=== PATIENT | male | born 1960 ===

== ENCOUNTER 2024-11-24 08:27 | Outpatient (REF) | payer OTHER, SELFPAY ==
--- NOTE | ~2024-11-24 | XR_ITS ---
EXAMINATION: XR SHOULDER 2 OR MORE VIEWS LEFT HISTORY: M25.519 - Pain in unspecified shoulder COMPARISON: There are no prior studies available for comparison. FINDINGS: Three views of the left shoulder are submitted. Osseous mineralization is normal. There is no fracture or dislocation. The glenohumeral and acromioclavicular joint spaces are preserved. The soft tissues are unremarkable. XR/XR shoulder LT min 2V IMPRESSION: Unremarkable examination of the left shoulder. Electronically signed by: Hany Torres MD 11/25/2024 08:25 AM EDT
--- OUTSIDE RECORDS SUMMARY | 2024-11-25 08:53 | XMS_ITS | Clinical Summary ---
Author Organization [facility] [address] [facility] Building Address [address] [place] [address] Phone Care Team Providers Care Vice President Of Talent Management Name Role Phone Naseem Huddleston Primary Care Provider [phone] Allergies Active Allergy Reactions Criticality Noted Date [...] plaque,Chronic obstructive pulmonary disease with acute exacerbation ([facility]/HCC),Depress ion, unspecified depression type,Hyperlipidem ia, unspecified hyperlipidemia type,Tobacco use disorder,Primary hypertension,PVD (peripheral vascular disease) ([facility]),Periphe ral arterial occlusive disease ([facility]),Need for vaccination against Streptococcus pneumoniae [...] Care Team Description 10/21/2024 Telephone Adult Medicine [address] [phone] Naseem Huddleston PA Rectal Bleeding; Anal Itching 10/19/2024 Telephone Adult Medicine [address] [phone] Karley Caro [place] Prior Authorization (Methocarbamol 750mg) 10/11/2024 [facility] [address] [phone] Naseem Huddleston PA 10/10/2024 [facility] [address] [phone] Naseem Huddleston PA Prior Authorization (Lubiprostone) 10/07/2024 3:51 PM EST - 10/07/2024 11:59 PM EST Hospital Encounter Radiology Department - [address] [phone] Dyspnea on exertion; Lumbar radiculitis; Anxiety; Coronary artery disease due to lipid rich plaque; Chronic obstructive pulmonary disease with acute exacerbation (CMS/HCC); Depression, unspecified depression type; Hyperlipidemia, unspecified hyperlipidemia type; Tobacco use disorder; Primary hypertension; PVD (peripheral vascular disease) (CMS/HCC); Peripheral arterial occlusive disease (CMS/HCC); Need for vaccination against Streptococcus pneumoniae Discharge Disposition: Home or Self Care 10/07/2024 Telephone Adult [address] [phone] Naseem Huddleston PA Medication Problem 10/04/2024 Nurse Triage [address] [phone] Naseem Huddleston PA Diarrhea 09/23/2024 8:00 AM EST Office Visit [address] [phone] Naseem Huddleston PA Primary hypertension (Primary Dx); Dyspnea on exertion; Lumbar radiculitis; Anxiety; Coronary artery disease due to lipid rich plaque; Chronic obstructive pulmonary disease with acute exacerbation (CMS/HCC); Depression, unspecified depression type; Hyperlipidemia, unspecified hyperlipidemia type; Tobacco use disorder; PVD (peripheral vascular disease) (CMS/HCC); Peripheral arterial occlusive disease (CMS/HCC); Need for vaccination against Streptococcus pneumoniae 08/31/[address] [phone] Darvin Barone, PT 08/30/2024 12:00 PM EST Evaluation Outpatient [address] [phone] Darvin Barone, PT Shoulder impingement (Primary Dx) from Last 3 Months Immunizations Name Administration Dates Next Due Influenza trivalent, with pr eservative (Fluzone; Afluria) 6mo and older 09/05/2012 [employer] SARS-CoV-2 COVID -19, vector-nr, [id number], preservative free [...] Surgery Date Site/Laterality Comments COLONOSCOPY 02/02/2012 PROCEDURE: [place] COLONOSCOPY FLX DX W/COLLJ SPEC WHEN PFRMD; COMMENT: normal OTHER SURGICAL HISTORY 05/2015 PROCEDURE: ENDOVAS NON-CARDIAC ABL CATH; COMMENT: right leg, left arm PVD OTHER SURGICAL HISTORY PROCEDURE: [place] BYPASS W/VEIN [id number]; COMMENT: dr. walsh COLONOSCOPY 05/22/2022 PROCEDURE: HISTORICAL COLONOSCOPY; COMMENT: tubular adenomas ESOPHAGOGASTRODUODENOSCOPY 05/22/2022 PROCEDURE: [place] EGD TRANSORAL BIOPSY SINGLE/MULTIPLE; COMMENT: GERD LEG SURGERY Right PROCEDURE: HISTORICAL LEG SURGERY; COMMENT: right tib/fib fx orif Medical History Medical History Date Comments PVD (peripheral vascular dis ease) ([facility]/HCC) 12/23/2011 DX:PVD (peripheral vascular disease) ([facility]); COMMENT: History of ischemic left [...] 8:00 AM EDT Office Visit Adult Medicine [facility] [address] [place] [address] Naseem Huddleston PA [address] [place] [address] Health Maintenance Due Date Last Done Comments [...] Signed Date: 10/07/2024 18:03 ET Workstation ID: [id number] Transcribed By: Self Edit Transcribed Date: 10/07/2024 [...] Signed Date: 10/07/2024 18:03 ET Workstation ID: [id number] Transcribed By: Self Edit Transcribed Date: 10/07/2024 17:51 ET Naseem JEAN BAPTISTE [facility] MRI PROCEDURES Final Result * Lipid panel with reflex to direct LDL (07/25/2024 1:43 PM EST) Cholesterol 96 0 - 200 mg/dL LAB CHEMISTRY METHOD 07/25/2024 4:54 PM EST [facility] Triglycerides 108 0 - 150 mg/dL LAB CHEMISTRY METHOD 07/25/2024 4:54 PM [facility] HDL 48 >=40 mg/dL LAB CHEMISTRY METHOD 07/25/2024 4:54 PM [facility] LDL Calculated 26 0 - 100 mg/dL LAB CHEMISTRY METHOD 07/25/2024 4:54 PM [facility] VLDL Cholesterol Shaun 21.6 mg/dL LAB CHEMISTRY METHOD 07/25/2024 4:54 PM [facility] Non HDL Chol. (LDL+VLDL) 48 <145 mg/dL LAB CHEMISTRY METHOD 07/25/2024 4:54 PM [facility] Chol/HDL Ratio 2.0 0.0 - 4.4 LAB CHEMISTRY METHOD 07/25/2024 4:54 PM [facility] Blood Venous blood specimen / Unknown Venipuncture / Unknown 07/25/2024 1:43 PM EST 07/25/2024 1:43 PM EST us Naseem JEAN BPATISTE LAB BLOOD ORDERABLES Linda l Result [facility] [address] [place] [address], * (ABNORMAL) Comprehensive metabolic panel (07/25/2024 1:43 PM EST) Pathologist [facility] Sodium 138 133 - 145 mmol/L LAB CHEMISTRY METHOD 07/25/2024 4:54 PM [facility] Potassium 3.5 3.5 - 5.5 mmol/L LAB CHEMISTRY METHOD 07/25/2024 4:54 PM [facility] Chloride 102 96 - 110 mmol/L LAB CHEMISTRY METHOD 07/25/2024 4:54 PM [facility] CO2 29 21 - 32 mmol/L LAB CHEMISTRY METHOD 07/25/2024 4:54 PM [facility] Anion Gap 7 3 - 11 LAB CHEMISTRY METHOD 07/25/2024 4:54 PM [facility] Glucose 111(H) 70 - 100 mg/dL LAB CHEMISTRY METHOD 07/25/2024 4:54 PM [facility] BUN 10 5 - 25 mg/dL LAB CHEMISTRY METHOD 07/25/2024 4:54 PM [facility] Creatinine 1.09 0.70 - 1.30 mg/dL LAB CHEMISTRY METHOD 07/25/2024 4:54 PM [facility] eGFR 76 >=60 mL/min/1. 73m2 LAB CHEMISTRY METHOD 07/25/2024 4:54 PM [facility] Comment:Calculation based on the??Chronic Kidney Disease Epidemiology Collaboration (CKD-EPI) equation refit??without adjustment for race. BUN/Creatinine Ratio 9.2 LAB CHEMISTRY METHOD 07/25/2024 4:54 PM [facility] Calcium 9.6 8.5 - 10.5 mg/dL LAB CHEMISTRY METHOD 07/25/2024 4:54 PM [facility] AST (SGOT) 17 10 - 42 unit/L LAB CHEMISTRY METHOD 07/25/2024 4:54 PM [facility] ALT (SGPT) 34 10 - 60 unit/L LAB CHEMISTRY METHOD 07/25/2024 4:54 PM [facility] Alkaline Phosphatase 98 42 - 121 unit/L LAB CHEMISTRY METHOD 07/25/2024 4:54 PM [facility] Total Protein 7.0 6.0 - 8.0 g/dL LAB CHEMISTRY METHOD 07/25/2024 4:54 PM [facility] Albumin 3.9 3.2 - 5.0 g/dL LAB CHEMISTRY METHOD 07/25/2024 4:54 PM EST [facility] Total Bilirubin 1.3 0.0 - 1.4 mg/dL LAB CHEMISTRY METHOD 07/25/2024 4:54 PM EST [facility] Blood Venous blood specimen / Unknown Venipuncture / Unknown 07/25/2024 1:43 PM EST 07/25/2024 1:43 PM EST us Naseem JEAN BAPTISTE LAB BLOOD ORDERABLES Linda l Result [facility] [address] [place] [address], * Depression Screening (05/24/2024) Depression Screening abstracted Historical Provider HEALTH MAINTENANCE Final Result * CT LUNG SCREENING LOW DOSE (05/02/2024 10:26 AM EDT) Anatomical Region Laterality Modality Computed Tomogra phy 05/02/2024 7:28 AM EDT Narrative 05/02/2024 10:26 AM EDT [facility] Diagnostic Imaging Department [address] [place] [id number] Patient: ??NASH AQUINO ?/Age/Sex: 1960 - 64 - M Unit#: ??[id number] ? Location/Status: ??SPDICATLS/REG CLI ? Mnemonic/Ordering Site: [...] Procedure Note Michelle Pete MD - 06/08/2024 [facility] Diagnostic Imaging Department [address] [place], [place] [id number] Patient: NASH AQUINO /Age/Sex: 1960 - 64 - M Unit#: [id number] Location/Status: SPDICATLS/REG CLI Mnemonic/Ordering Site: [facility] Ordering Physician: GIGI LAWSON MD CT Lung [...] Most Recently Relevant to Health Maintenance Insurance [facility] [email or web address] PLAN Care Teams Vice President Of Talent Management Relationship Specialty Start Date End Date Naseem Huddleston PA [address] [place] [address] PCP - General Internal Medicine 11/26/20
--- OUTSIDE RECORDS SUMMARY | 2024-11-25 08:53 | XMS_ITS | Encounter Summary ---
Author Organization Address [address] [place] [address] Care Team Providers Care Counterintelligence/Humint Specialist Name Role Phone Naseem Huddleston Primary Care Provider [phone] Reason for Visit * Reason Onset Date Comments Shoulder Pain 07/25/2024 Left Shoulder Encounter Details Date Type Department Care Team (Late st Contact Info) Description 07/25/2024 Nurse Triage Adult Medicine [address] [phone] Naseem Huddleston PA [address] [place] [phone] Shoulder Pain (Left Shoulder ) Social History [...] traveled recently to another state outside of [place], [place], [place], [place], [place], [place], [place]? no [...] yes, gather 3rd libertarian insurance information Third Republican Information: not applicable PCP: MARKEL Fonseca Payor: / No coverage found. documented in this encounter Plan of Treatment Upcoming Encounters Date Type Department Care Team (Late st Contact Info) Description 03/27/2025 8:00 AM EDT Office Visit Adult Medicine [address] [address] Naseem Huddleston PA [address] [place] [phone] documented as of this encounter Visit Diagnoses Not on filedocumented in this encounter Care Teams Counterintelligence/Humint Specialist Relationship Specialty Start Date End Date Naseem Huddleston PA [address] [place] [phone] PCP - General Internal Medicine 11/26/20 documented as of this encounter
--- OUTSIDE RECORDS SUMMARY | 2024-11-25 08:53 | XMS_ITS | Encounter Summary ---
Author Organization [facility] [place] [address] Care Team Providers Care Scientific Laboratory Supervisor Name Role Phone Naseem Huddleston Primary Care Provider [phone] Reason for Visit * Reason Onset Date Comments Diarrhea 10/04/2024 Encounter Details Date Type Department Care Team (Late st Contact Info) Description 10/04/2024 Nurse Triage Adult Medicine [facility] [address] [place] [phone] Naseem Huddleston PA [address] [place] [address] Diarrhea Social History Tobacco Use Types Packs/Day [...] Who is patients PCP?: MARKEL Fonseca [facility]or[facility] [facility] [employer] PL[facility] / Plan: [facility] MEDICAID / Product Type: *No Product type* / documented in this encounter Plan of Treatment Upcoming Encounters Date Type Department Care Team (Late st Contact Info) Description 03/27/2025 8:00 AM EDT Office Visit Adult Medicine [facility] [address] [place] [phone] Naseem Huddleston PA [address] [place] [phone] documented as of this encounter Goals Goal Patient Goal Type Associated Problems Recent Progress Patient-Stated? Author feel better General Yes Darvin Barone PT STG General No Darvin Barone PT Note: Pt will be instructed in and provided with HEP. documented as of this encounter Visit Diagnoses Not on filedocumented in this encounter Care Teams Scientific Laboratory Supervisor Relationship Specialty Start Date End Date Naseem Huddleston PA [address] [place] [address] PCP - General Internal Medicine 11/26/20 documented as of this encounter
--- OUTSIDE RECORDS SUMMARY | 2024-11-25 08:53 | XMS_ITS | Encounter Summary ---
Author Organization [facility] [place] [address] Care Team Providers Care Ornament Maker Hand Name Role Phone Naseem Huddleston Primary Care Provider [phone] Reason for Visit * Reason Onset Date Comments Rectal Bleeding 10/21/2024 Anal Itching 10/21/2024 Encounter Details Date Type Department Care Team (Late st Contact Info) Description 10/21/2024 Telephone Adult Medicine [facility] [address] [place] [address] Naseem Huddleston PA [address] [place] [address] Rectal Bleeding; Anal Itching Social History Tobacco [...] please call the patient via phone number [phone]. He also informed me that MARKEL Fonseca [...] 8:00 AM EDT Office Visit Adult Medicine [facility] [address] [place] [phone] Naseem Huddleston PA [address] [place] [address] documented as of this encounter Goals Goal Patient Goal Type Associated Problems Recent Progress Patient-Stated? Author feel better General Yes Darvin Barone PT STG General No Darvin Barone PT Note: Pt will be instructed in and provided with HEP. documented as of this encounter Visit Diagnoses Not on filedocumented in this encounter Care Teams Ornament Maker Hand Relationship Specialty Start Date End Date Naseem Huddleston PA [address] [place] [address] PCP - General Internal Medicine 11/26/20 documented as of this encounter
--- OUTSIDE RECORDS SUMMARY | 2024-11-25 08:53 | XMS_ITS | Clinical Summary ---
Author Organization [facility] Address [address] [place] [address] Care Team Providers Care Bag Adjuster Name Role Phone Naseem Huddleston PA-C Primary Care Provider Allergies Active Allergy Reactions Criticality Noted Date Comments Lisinopril 01/09/2015 Facial swelling Penicillins Other (See Comments) 08/14/2011 Passed out Tyloxapol Itching Medium 04/25/2010 MAKES HIM HAVE CONSTIPATION SWEATING CAN'T SLEEP AND ITCHY Medications Medication Sig Dispensed Refills Start Date End Date Status Aspirin Buf,[id number]-FnCqrt-MsB, 81 MG TABS Take 81 mg by [...] age to complete this topic Care Teams Bag Adjuster Relationship Specialty Start Date End Date Naseem Huddleston PA-C PCP - General Medical Services 03/19/21
== END 2024-11-24 08:28 | disposition home or self-care (01) ==
LOC: HO.HOSX 08:27
PROVIDERS: Visit Provider Physician Assistant
DX: M25.512 Pain in left shoulder (principal); M54.12 Radiculopathy, cervical region; M75.52 Bursitis of left shoulder; M77.8 Other enthesopathies, not elsewhere classified
CPT/HCPCS: 20610; 73030; 99202; J1010; J2003

== ENCOUNTER 2024-11-24 08:44 | Outpatient (AMB) | payer OTHER, SELFPAY ==
--- NOTE | 2024-11-24 08:48 | A.OFFVIS_ITS ---
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 MRI done on 10/07/24. Patient reports ongoing pain for about 6 - 7 months. He states that his pain is on the lateral aspect of the shoulder and it radiates up to his neck and down his whole arm causing him a tingling sensation in his fingers. Last injection on 08/02/[address] Chavez in [place]. Hx of one PT session for his shoulder. 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 The report of pain progression is substantial, as it began as soreness and transitioned to more severe and limiting pain. MRI indicated significant inflammation in the shoulder, he recieved a cortisone injection on 08/02/24 which provided temporary relief. While physical therapy aggravated the condition. Complications arose including numbness, tingling, and burning that extended from the neck and head to the hand, indicating possible cervical radiculopathy. [facility] Social History (Updated 11/24/24 @ 09:04 by Tevin De La Rosa) Alcohol intake: former Cigarette Packs Per Day: 1 Current occupational status: disabled Review of Systems Const All systems reviewed & are unremarkable except as noted in HPI and below Physical Exam Const General: cooperative, healthy appearing and no acute distress Resp Effort & Inspection: normal respiratory effort and able to speak in complete sentences Cardio Rate: regular rate Peripheral pulses: Peripheral pulses 2+ throughout Skin Lesions: no lesions Rashes: no rashes Extrem Other: Left shoulder: Full shoulder ROM in all planes with pain. Positive cross-body reach. Negative empty can. Negative drop arm. Reproduction pain when rotating his head to the left. Office Procedures AMB Joint Injection/Aspiration Joint Injection/Aspiration Primary Site: left shoulder Prep: site was prepped using aseptic technique, ethochloride spray was applied and injection warnings given Injected: 80 mg of, DepoMedrol, with 8 mL of (2% plain lido ) and in the subcromial space Approach Used: posterolateral Procedure: The patient tolerated the procedure well, but had some pain with the injection and there was some relief with the local anesthesia Coding 13102 - Large joint Procedure code (CPT) selection complete Assessment & Plan Assessment & Plan (1) Cervical radiculopathy: Code(s): M54.12 - Radiculopathy, cervical region Category: Medical (2) Bursitis of left shoulder: Code(s): M75.52 - Bursitis of left shoulder Category: Medical (3) Left shoulder tendinitis: Code(s): M77.8 - Other enthesopathies, not elsewhere classified Category: Medical Plan I explained to the patient the likely presence of cervical radiculopathy contributing to existing shoulder inflammation from his prior injury of laying on his left side for a long period of time. Diagnostic imaging reveals inflammation in the shoulder. I offered the patient a cortisone injection the left shoulder is he did receive some relief with prior injections. The patient was offered a cortisone injection in the left shoulder with 80 mg of DepoMedrol. The patient was explained the risks, benefits, and alternatives to receiving this injection. After receiving consent for the injection, the patient had the procedure done while in the office today. The patient tolerated the procedure well with no complications. Additionally, the patient is having radicular symptoms and therefore I have placed referral to Dr. Murguia for further evaluation and treatment. X-rays of the left shoulder which were obtained while in the office today and were reviewed by me, Libby Michael PA-C, revealed no acute fracture dislocation. MRI obtained on 10/07/2024 reveals bursitis and moderate supraspinatus and infraspinatus tendinopathy as well as tendinopathy of the biceps tendon attachment. Follow-up will be p.r.n., or sooner if needed with orthopedics. Continue to follow-up with physiatry. Orders: Orders XR shoulder LT min 2V Today M25.519 - Pain in unspecified shoulder Coding Level of Care Code New Pt Level 4 (68844) Diagnoses Cervical radiculopathy M54.12 Bursitis of left shoulder M75.52 Left shoulder tendinitis M77.8 CPT Codes Coding - 80055 Large joint: 45348 - Large joint ([id number])
--- OUTSIDE RECORDS SUMMARY | 2024-11-24 08:52 | XMS_ITS | Clinical Summary ---
Author Organization [facility] Address [address] [place] [address] Care Team Providers Care Superintendent Name Role Phone Naseem Huddleston PA-C Primary Care Provider Allergies Active Allergy Reactions Criticality Noted Date Comments Lisinopril 01/09/2015 Facial swelling Penicillins Other (See Comments) 08/14/2011 Passed out Tyloxapol Itching Medium 04/25/2010 MAKES HIM HAVE CONSTIPATION SWEATING CAN'T SLEEP AND ITCHY Medications Medication Sig Dispensed Refills Start Date End Date Status Aspirin Buf,XhZbag-TrXtpx-LcM, 81 MG TABS Take 81 mg by mouth. 0 Active atorvastatin (LIPITOR) tablet 40 mg Take 1 tablet by mouth daily. 0 08/28/2020 Active hydroCHLOROthiazide (HYDRODIURIL) tablet 25 mg Take 1 tablet by mouth daily. 0 08/28/2020 Active LORazepam (ATIVAN) 0.5 MG tablet Take 0.5 mg by mouth. 0 02/05/2021 Active omeprazole (PriLOSEC) 20 MG capsule Take 1 capsule by mouth daily. 0 08/28/2020 Active rivaroxaban (Xarelto) 15 MG TABS tablet daily. 0 12/30/2019 Active Active Problems Problem Noted Date Diagnosed Date Status post left heart catheterization Dyspnea on exertion 12/04/2020 Overview: Last Assessment & Plan: We did discuss his need to stop smoking. This is likely contributing to his vascular and potential coronary artery disease. She does understand the risk of continued smoking. Positive cardiac stress test 12/04/2020 Overview: Last Assessment & Plan: We did discuss his dyspnea. We did discuss his cardiac stress test. This showed an area of inferior and inferolateral ischemia. There is also suggestion of TID. His ejection fraction was normal. Is unclear if his dyspnea is due to coronary artery disease or deconditioning and weight gain. With his positive stress test and history of tobacco use, hypertension, hyperlipidemia and vascular disease his pretest probability of having significant coronary disease is high. We did discuss options including adjustments in medications and evaluation of his symptoms and cardiac catheterization. He is in favor of an angiogram at this time. We discussed the risks and benefits of this. He would like to proceed. We will increase his diltiazem dose to 180 to get his blood pressure under better control. He will continue on his aspirin and statin. He is on Xarelto for his vascular disease which is also been proven to be beneficial in CAD as well. He will continue on these. We will get him set up for cardiac catheterization. If his symptoms worsen he will go to the hospital. Marijuana use 05/27/2019 Lumbar radiculitis 03/20/2019 Tobacco use disorder 03/19/2015 Hyperlipidemia 12/12/2014 Overview: Last Assessment & Plan: His lipids are favorable. His LDL should be less than 70. He is doing well on his statin. it appears that he has an upcoming lipid panel ordered. Anxiety 07/28/2012 Panic disorder 07/28/2012 Depression 12/23/2011 GERD (gastroesophageal reflux disease) 2 PVD (peripheral vascular disease) 12/23/2011 Overview: History of ischemic left hand , and claudication followed by Dr. Greenberg Social History Tobacco Use Types Packs/Day Years Used Date Smoking Tobacco: Every Day Cigarettes 1 Smokeless Tobacco: Never Tobacco Cessation:Ready to Q uit: No Alcohol Use Standard Drinks/Week Comments Not Currently 0 (1 standard drink = 0.6 oz pur e alcohol) Sex and Gender Information Value Date Recorded Sex Assigned at Not on file Gender Identity Not on file Sexual Orientation Not on file Job Start Date Occupation Industry Not on file Not on file Not on file Last Filed Vital Signs Vital Sign Reading Time Taken Comments Blood Pressure 144/96 03/19/2021 11:08 AM EDT Pulse 84 03/19/2021 11:08 AM EDT Temperature 36.4 ??C (97.5 ??F) 03/19/2021 11:08 AM E DT Respiratory Rate - - Oxygen Saturation 96% 03/19/2021 11:08 AM EDT Inhaled Oxygen Concentration - - Weight 110.2 kg (243 lb) 03/19/2021 11:08 AM EDT Height 172.7 cm (5' 8 ) 03/19/2021 11:08 AM EDT Body Mass Index 36.95 03/19/2021 11:08 AM EDT Plan of Treatment Health Maintenance Due Date Last Done Comments Hepatitis C Screening 1961 Pneumococcal Vaccine (1 of 2 - PCV) 1967 Depression Screening 1973 Preventative Health Evaluation 1979 DTap / Tdap / Td (1 - Tdap) 1980 Colon Cancer Screening (Colonoscopy) 2006 Shingrix-Zoster Vaccine (1 of 2) 2011 COVID-19 Vaccine (2 - 2023-2 5 season) 2024 11/19/2020 Influenza Vaccine (#1) 2024 09/05/2012 RSV Adult > 60+ Yrs or Pregn ant (1 - 1-dose 75+ series) 2036 Hepatitis B Vaccines Aged Out No long er eligible based on patient's age to complete this topic RSV Ped < 20 months Aged Out No longe r eligible based on patient's age to complete this topic Care Teams Superintendent Relationship Specialty Start Date End Date Naseem Huddleston PA-C PCP - General Medical Services 03/19/21
--- OUTSIDE RECORDS SUMMARY | 2024-11-24 08:52 | XMS_ITS | Encounter Summary ---
Author Organization [facility] [place] [address] Care Team Providers Care Chemical Production Technician Name Role Phone Naseem Huddleston Primary Care Provider [phone] Reason for Visit * Reason Onset Date Comments Prior Authorization 10/19/2024 Methocarbamo l 750mg Encounter Details Date Type Department Care Team (Late st Contact Info) Description 10/19/2024 Telephone Adult Medicine [address] [phone] Karley Caro MA Prior Authorization (Methocarbamol 750mg) Social History Tobacco Use Types Packs/Day Years Used Date Smoking Tobacco: Every Day Cigarettes 1 50.6 Started: 04/07/1974 Smokeless Tobacco: Never Alcohol Use Standard Drinks/Week Comments Yes 0 (1 standard drink = 0.6 oz pur e alcohol) Sex and Gender Information Value Date Recorded Sex Assigned at Not on file Legal Sex Male 4:15 PM EST Gender Identity Not on file Sexual Orientation Not on file documented as of this encounter Progress Notes * Magdalena Pineda MA - 10/27/2024 1:51 PM EST This is not a prior authorization they need to run a different [facility]. [facility] [phone] Pharmacy notified. Vm left. * Karley Caro MA - 10/19/2024 3:31 PM EST Prior Authorization for Medication-do not complete and send this encounter unless you have the fax from the pharmacy. Is this a Cover My Meds request: Yes -- [place] Code [id number] Name of MedicationMethocarbamol Dose of Medication 750mg What is the RX # from the faxed refill? How does patient take this med? Take 1 tablet (750 mg total) by mouth 3 (three) times a day. What Pharmacy did the fax come from: [facility] fax #: [phone] [employer] Information from fax: What Prescription Plan does the patient have? [employer] BIN/PCN if applicable: Cardholder ID: Person Code: Relationship Code: Help desk phone: documented in this encounter Plan of Treatment Upcoming Encounters Date Type Department Care Team ([facility] Contact Info) Description 03/27/2025 8:00 AM EDT Office Visit Adult Medicine [facility] [address] [place] [phone] Naseem Huddleston PA [address] [place], [place] documented as of this encounter Goals Goal Patient Goal Type Associated Problems Recent Progress Patient-Stated? Author feel better General Yes Darvin Barone PT STG General No Darvin Barone PT Note: Pt will be instructed in and provided with HEP. documented as of this encounter Visit Diagnoses Not on filedocumented in this encounter Care Teams Chemical Production Technician Relationship Specialty Start Date End Date Naseem Huddleston PA [address] [place] [address] PCP - General Internal Medicine 11/26/20 documented as of this encounter
--- OUTSIDE RECORDS SUMMARY | 2024-11-24 08:52 | XMS_ITS | Clinical Summary ---
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 024 Active hydrocortisone (ANUSOL-HC) [address] 1 Suppository rectally 2 times daily. 024 Active polyethylene glycol (MIRALAX) 17 gram packet Take 1 Packet by mouth daily. 024 Active docusate sodium (COLACE) 100 mg capsule TAKE 1 CAPSULE BY MOUTH TWICE A DAY 180 capsule 3 025 Active atorvastatin (LIPITOR) 40 mg tablet Take 1 tablet (40 mg total) by mouth 1 (one) time each day. 90 tablet 3 025 Active hydroCHLOROthiazi de (HYDRODIURIL) 25 mg tablet Take 1 tablet (25 mg total) by mouth 1 (one) time each day. 90 tablet 1 025 Active rivaroxaban (Xarelto) 15 mg tablet Take 1 tablet (15 mg total) by mouth 1 (one) time each day. Take with food. 90 tablet 025 Active albuterol HFA (PROAIR HFA ; PROVENTIL HFA ; VENTOLIN HFA) 90 mcg/actuation inhalerIndication s:Dyspnea on exertion,Lumbar radiculitis,Anxie ty,Coronary artery disease due to lipid rich plaque,Chronic obstructive pulmonary disease with acute exacerbation ([facility]/HCC),Depress ion, unspecified depression type,Hyperlipidem ia, unspecified hyperlipidemia type,Tobacco use disorder,Primary hypertension,PVD (peripheral vascular disease) ([facility]),Periphe ral arterial occlusive disease ([facility]),Need for vaccination against Streptococcus pneumoniae Inhale 2 puffs by mouth every 4 (four) hours if needed for wheezing. 6.7 g Active gabapentin (NEURONTIN) 300 mg capsule Take 1 capsule (300 mg total) by mouth 3 (three) times a day. at bedtime 270 capsule Active traZODone (DESYREL) 50 mg tablet Take 1 tablet (50 mg total) by mouth at bedtime as needed for sleep. 30 tablet Active senna (SENOKOT) 8.6 mg tablet Take 2 tablets (17.2 mg total) by mouth 2 (two) times a day if needed for constipation. 120 each 025 Active famotidine (PEPCID) 20 mg tablet Take 1 tablet (20 mg total) by mouth 2 (two) times a day. 180 tablet Active pantoprazole (PROTONIX) 40 mg EC tablet Take 1 tablet (40 mg total) by mouth 1 (one) time each day. Do not crush, chew, or split. 90 tablet 025 Active diclofenac (VOLTAREN) 1 % topical gel Apply 4 gram four times daily to affected joint 100 g 025 Active methocarbamoL (ROBAXIN) 750 mg tablet Take 1 tablet (750 mg total) by mouth 3 (three) times a day. 270 tablet 025 Active verapamil SR (CALAN-SR) 240 mg CR tablet Take 1 tablet (240 mg total) by mouth at bedtime. at bedtime. 90 tablet 025 Active aspirin 81 mg EC tablet TAKE 1 TABLET BY MOUTH EVERY DAY 90 tablet 1 025 Active aspirin 81 mg EC tablet Take 1 Tablet by mouth daily. 024 2024 Discontinued verapamil SR (CALAN-SR) 240 mg CR tablet Take 1 Tablet by mouth at bedtime. 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 He is on cardioprotective medical therapy with aspirin and statin. He denies any exertional anginal symptoms. Patient strongly advised to quit smoking. He is not ready to consider this. I have reviewed with the patient the importance of a heart healthy lifestyle which includes eating a low-fat low-salt diet, getting regular exercise, maintaining a healthy weight, not smoking, and following up with routine medical care. Primary insomnia 12/16/2021 Dyspnea on exertion 12/04/2020 Overview (07/24/2024): Last Assessment & Plan: We did discuss his need to stop smoking. This is likely contributing to his vascular and potential coronary artery disease. She does understand the risk of continued smoking. Marijuana use 05/27/2019 Marijuana use 05/27/2019 Lumbar radiculitis 03/20/2019 Lumbar radiculitis 03/20/2019 Tobacco use disorder 03/19/2015 Hyperlipidemia 12/12/2014 Overview (09/23/2024): Last Assessment & Plan: His lipids are favorable. His LDL should be less than 70. He is doing well on his statin. it appears that he has an upcoming lipid panel ordered. Anxiety 07/28/2012 Panic disorder 07/28/2012 Depression 12/23/2011 Gastroesophageal reflux disease 12/23/2011 PVD (peripheral vascular disease) 12/23/2011 Overview (09/23/2024): History of ischemic left hand , and claudication followed by Dr. Greenberg Encounters Date Type Department Care Team Description 10/21/2024 Telephone Adult Medicine [address] [phone] Naseem Huddleston PA Rectal Bleeding; Anal Itching 10/19/2024 Telephone Adult Medicine [address] [phone] Karley Caro [place] Prior Authorization (Methocarbamol 750mg) 10/11/2024 [facility] [facility] [address] [phone] Naseem Huddleston PA 10/10/2024 [facility] [address] [phone] Naseem Huddleston PA Prior Authorization (Lubiprostone) 10/07/2024 3:51 PM EST - 10/07/2024 11:59 PM EST Hospital Encounter Radiology Department - [address] [phone] Dyspnea on exertion; Lumbar radiculitis; Anxiety; Coronary artery disease due to lipid rich plaque; Chronic obstructive pulmonary disease with acute exacerbation (CMS/HCC); Depression, unspecified depression type; Hyperlipidemia, unspecified hyperlipidemia type; Tobacco use disorder; Primary hypertension; PVD (peripheral vascular disease) (CMS/HCC); Peripheral arterial occlusive disease (CMS/HCC); Need for vaccination against Streptococcus pneumoniae Discharge Disposition: Home or Self Care 10/07/2024 Telephone Adult [address] [phone] Naseem Huddleston PA Medication Problem 10/04/2024 Nurse Triage [address] [phone] Naseem Huddleston PA Diarrhea 09/23/2024 8:00 AM EST Office Visit [address] [phone] Naseem Huddleston PA Primary hypertension (Primary Dx); Dyspnea on exertion; Lumbar radiculitis; Anxiety; Coronary artery disease due to lipid rich plaque; Chronic obstructive pulmonary disease with acute exacerbation (CMS/HCC); Depression, unspecified depression type; Hyperlipidemia, unspecified hyperlipidemia type; Tobacco use disorder; PVD (peripheral vascular disease) (CMS/HCC); Peripheral arterial occlusive disease (CMS/HCC); Need for vaccination against Streptococcus pneumoniae 08/31/[address] [phone] Darvin Barone, PT 08/30/2024 12:00 PM EST Evaluation Outpatient [address] [phone] Darvin Barone, PT Shoulder impingement (Primary Dx) from Last 3 Months Immunizations Name Administration Dates Next Due Influenza trivalent, with pr eservative (Fluzone; Afluria) 6mo and older 09/05/2012 [email or web address] SARS-CoV-2 COVID -19, vector-nr, rS-Ad26, preservative free 11/19/2020 Pfizer (age 5-11) Bivalent, COVID-19 08/11/2022 Pfizer SARS-CoV-2 COVID-19, mRNA, LNP-S, preservative free 07/30/2021 Pneumococcal conjugate 20 va lent (Prevnar 20, PCV 20) 2mo and older 09/23/2024 Td Tetanus diptheria (Tdvax) 7yo and older 12/22 Tdap Tetanus diptheria acell ular pertussis (Boostrix; Adacel) 7yo and older 06/20/2021 Surgical History Surgery Date Site/Laterality Comments COLONOSCOPY 02/02/2012 PROCEDURE: FL COLONOSCOPY FLX DX W/COLLJ SPEC WHEN PFRMD; COMMENT: normal OTHER SURGICAL HISTORY 05/2015 PROCEDURE: ENDOVAS NON-CARDIAC ABL CATH; COMMENT: right leg, left arm PVD OTHER SURGICAL HISTORY PROCEDURE: FL BYPASS W/VEIN [id number]; COMMENT: dr. walsh COLONOSCOPY 05/22/2022 PROCEDURE: HISTORICAL COLONOSCOPY; COMMENT: tubular adenomas ESOPHAGOGASTRODUODENOSCOPY 05/22/2022 PROCEDURE: FL EGD TRANSORAL BIOPSY SINGLE/MULTIPLE; COMMENT: GERD LEG SURGERY Right PROCEDURE: HISTORICAL LEG SURGERY; COMMENT: right tib/fib fx orif Medical History Medical History Date Comments PVD (peripheral vascular dis ease) ([facility]/HCC) 12/23/2011 DX:PVD (peripheral vascular disease) ([facility]); COMMENT: History of ischemic left hand , and claudication followed by Dr. Greenberg GERD (gastroesophageal reflux disease) 2 DX:GERD (gastroesophageal reflux disease) Depression 12/23/2011 DX:Depression Panic disorder 07/28/2012 DX:Panic disorde r Anxiety 07/28/2012 DX:Anxiety HTN (hypertension) 12/12/2014 DX:HTN (hyper tension) Hyperlipidemia 12/12/2014 DX:Hyperlipidemi a Tobacco use disorder 03/19/2015 DX:Tobacco use disorder Acid reflux DX:Acid reflux Dysphagia DX:Dysphagia Rectal bleeding DX:Rectal bleedi ng Family History Medical History Relation Name Comments Heart attack Brother 1 Other: not sure Father estranged Heart attack Mother Stroke Mother Relation Name Status Comments Brother 1 Alive mi age 32, dm, bladder cancer, back problems Brother 2 Alive Brother 3 Alive Brother 4 Alive Brother 5 Alive Father (Age 51) ? Mother cad, htn, strok e Sister Alive Social History Tobacco Use Types Packs/Day Years Used Date Smoking Tobacco: Every Day Cigarettes 1 50.6 Started: 04/07/1974 Smokeless Tobacco: Never Tobacco Cessation:Ready to Q uit: Not Asked; Counseling Given: Not Answered Alcohol Use Standard Drinks/Week Comments Yes 0 (1 standard drink = 0.6 oz pur e alcohol) Sex and Gender Information Value Date Recorded Sex Assigned at Not on file Legal Sex Male 4:15 PM EST Gender Identity Not on file Sexual Orientation Not on file Obstetrics History Last Filed Vital Signs Vital Sign Reading Time Taken Comments Blood Pressure 137/85 09/23/2024 7:57 AM EST Pulse 80 09/23/2024 7:57 AM EST Temperature 36.2 ??C (97.1 ??F) 09/23/2024 7:57 AM ES T Respiratory Rate 16 09/23/2024 7:57 AM EST Oxygen Saturation 97% 07/25/2024 1:47 PM EST Inhaled Oxygen Concentration - - Weight 106 kg (233 lb 6.4 oz) 09/23/2024 7:57 AM EST Height 170.2 cm (5' 7 ) 09/23/2024 7:57 AM EST Body Mass Index 36.56 09/23/2024 7:57 AM EST Plan of Treatment Upcoming Encounters Date Type Department Care Team (Late st Contact Info) Description 03/27/2025 8:00 AM EDT Office Visit Adult Medicine [facility] [address] [place] [phone] Naseem Huddleston PA [address] [place] [address] Health Maintenance Due Date Last Done Comments Zoster Vaccines (1 of 2) 2011 RSV Immunization Adult Patients (1 - Risk 60-74 years 1-dose series) 2021 HIV Screening 08/02/2022 Social Influencers of Health Screening 08/02/2022 Influenza Vaccine (#1) 2024 09/05/2012 COVID-19 Vaccine ( season) 2024 05/07/2024, 11/29/2023, 08/11/2022, Additional history exists Lung Cancer Screening (Low Dose CT) 05/02/2025 05/02/2024, 04/18/2023, 04/11/2022, Additional history exists Depression Screening 05/24/2025 05/24/2024 Hypertension/CHF/CAD Annual BMP Blood Test 07/25/2025 07/25/2024 Colorectal Cancer Screening: Colonoscopy 05/22/2027 05/22/2022 Cholesterol Screening (Lipid Panel) 07/25/2029 07/25/2024, 09/09/2023 DTaP,Tdap,and Td Vaccines (3 - Td or Tdap) 06/20/2031 06/20/2021, 12/23/2011 Hepatitis C Screening Completed 05/24/2019 Pneumococcal Vaccine: 50+ Years Completed 09/23/2024 Pneumococcal Vaccine: Pediatrics (0 to 5 Years) and At-Risk Patients (6 to 64 Years) Completed 09/23/2024 HIB Vaccines Aged Out No longer eligi ble based on patient's age to complete this topic HPV Vaccines Aged Out No longer eligi ble based on patient's age to complete this topic Hepatitis A Vaccines Aged Out No long er eligible based on patient's age to complete this topic Hepatitis B Vaccines Aged Out No long er eligible based on patient's age to complete this topic IPV Vaccines Aged Out No longer eligi ble based on patient's age to complete this topic MMR Vaccines Aged Out No longer eligi ble based on patient's age to complete this topic Meningococcal ACWY Vaccine Aged Out N o longer eligible based on patient's age to complete this topic Meningococcal B Vacine Aged Out No lo nger eligible based on patient's age to complete this topic RSV Immunization Patients Under 20 months Aged Out No longer eligible based on patient's age to complete this topic Varicella Vaccines Aged Out No longer eligible based on patient's age to complete this topic Goals Goal Patient Goal Type Associated Problems Recent Progress Patient-Stated? Author feel better General Yes Darvin Barone PT STG General No Darvin Barone PT Note: Pt will be instructed in and provided with HEP. Procedures Procedure Name Priority Date/Time Associated Diagnosis Comments MR SHOULDER WO CONTRAST LEFT Routine 10/07/2024 4:45 PM EST Dyspnea on exertion Lumbar radiculitis Anxiety Coronary artery disease due to lipid rich plaque Chronic obstructive pulmonary disease with acute exacerbation (CMS/HCC) Depression, unspecified depression type Hyperlipidemia, unspecified hyperlipidemia type Tobacco use disorder Primary hypertension PVD (peripheral vascular disease) (CMS/HCC) Peripheral arterial occlusive disease (CMS/HCC) Need for vaccination against Streptococcus pneumoniae COMPREHENSIVE METABOLIC PANEL Routine 07/25/2024 1:43 PM EST Hyperlipemia LIPID PANEL WITH REFLEX TO DIRECT LDL Routine 07/25/2024 1:43 PM EST Hyperlipemia HM DEPRESSION SCREENING Routine 05/24/2024 CT LUNG SCREENING LOW DOSE Routine 05/02/2024 10:26 AM EDT Encounter for screening for malignant neoplasm of respiratory organs COLONOSCOPY Routine 05/22/2022 HEPATITIS C SCREENING Routine 05/24/2019 from Last 3 Months or Most Recently Relevant to Health Maintenance Results * MR Shoulder wo Contrast Left (10/07/2024 4:45 PM EST) Anatomical Region Laterality Modality Upper Extremities, Shoulder Left Magn etic Resonance 10/07/2024 5:51 PM EST Impressions 10/07/2024 6:03 PM EST 1. ??Trace subacromial subdeltoid bursal fluid in keeping with bursitis. 2. ??Moderate degree of supraspinatus and infraspinatus tendinopathy. 3. ??Findings suggesting tendinopathy of the intra-articular portion of the biceps tendon. -------- FINAL REPORT -------- Dictated By: Karen Saba Dictated Date: 10/07/2024 17:51 ET Assigned Physician: Karen Saba Reviewed and Electronically Signed By: Karen Saba Signed Date: 10/07/2024 18:03 ET Workstation ID: [id number] Transcribed By: Self Edit Transcribed Date: 10/07/2024 17:51 ET Narrative 10/07/2024 6:03 PM EST MR SHOULDER WO CONTRAST LEFT TECHNIQUE: Multisequence MRI of the left shoulder without intravenous contrast. COMPARISON: Radiographs of the left shoulder on July 25, 2024. HISTORY: Shoulder pain, bursitis suspected, xray done left shoulder pain, tried pt without improvement FINDINGS: Motion degrades many sequences. Coracoacromial Arch: Minimal degenerative changes at acromioclavicular joint. ??Trace subacromial-subdeltoid bursal fluid, in keeping with bursitis. Rotator Cuff: Moderate degree of supraspinatus and infraspinatus tendinopathy. ??No MR evidence of rotator cuff tear. ??No muscle atrophy. Glenoid Labrum and Biceps Tendon: Labrum is not well evaluated. ??Findings suggesting tendinopathy of the intra-articular portion of the biceps tendon; remainder portions are normally located within the bicipital groove. Bones: No fracture. Glenohumeral Joint: No joint effusion. Procedure Note Karen Saba MD - 10/07/2024 MR SHOULDER WO CONTRAST LEFT TECHNIQUE: Multisequence MRI of the left shoulder without intravenouscontrast. COMPARISON: Radiographs of the left shoulder on July 25, 2024. HISTORY: Shoulder pain, bursitis suspected, xray done left shoulder pain,tried pt without improvement FINDINGS: Motion degrades many sequences. Coracoacromial Arch: Minimal degenerative changes at acromioclavicularjoint. Trace subacromial-subdeltoid bursal fluid, in keeping withbursitis. Rotator Cuff: Moderate degree of supraspinatus and infraspinatustendinopathy. No MR evidence of rotator cuff tear. No muscle atrophy. Glenoid Labrum and Biceps Tendon: Labrum is not well evaluated. Findingssuggesting tendinopathy of the intra-articular portion of the bicepstendon; remainder portions are normally located within the bicipitalgroove. Bones: No fracture. Glenohumeral Joint: No joint effusion. IMPRESSION: 1. Trace subacromial subdeltoid bursal fluid in keeping with bursitis. 2. Moderate degree of supraspinatus and infraspinatus tendinopathy. 3. Findings suggesting tendinopathy of the intra-articular portion of thebiceps tendon. -------- FINAL REPORT -------- Dictated By: Karen Saba Dictated Date: 10/07/2024 17:51 ET Assigned Physician: Karen Saba Reviewed and Electronically Signed By: Karen Saba Signed Date: 10/07/2024 18:03 ET Workstation ID: [id number] Transcribed By: Self Edit Transcribed Date: 10/07/2024 17:51 ET Naseem JEAN BAPTISTE [facility] MRI PROCEDURES Final Result * Lipid panel with reflex to direct LDL (07/25/2024 1:43 PM EST) Cholesterol 96 0 - 200 mg/dL LAB CHEMISTRY METHOD 07/25/2024 4:54 PM EST [facility] Triglycerides 108 0 - 150 mg/dL LAB CHEMISTRY METHOD 07/25/2024 4:54 PM [facility] HDL 48 >=40 mg/dL LAB CHEMISTRY METHOD 07/25/2024 4:54 PM [facility] LDL Calculated 26 0 - 100 mg/dL LAB CHEMISTRY METHOD 07/25/2024 4:54 PM [facility] VLDL Cholesterol Shaun 21.6 mg/dL LAB CHEMISTRY METHOD 07/25/2024 4:54 PM [facility] Non HDL Chol. (LDL+VLDL) 48 <145 mg/dL LAB CHEMISTRY METHOD 07/25/2024 4:54 PM [facility] Chol/HDL Ratio 2.0 0.0 - 4.4 LAB CHEMISTRY METHOD 07/25/2024 4:54 PM [facility] Blood Venous blood specimen / Unknown Venipuncture / Unknown 07/25/2024 1:43 PM EST 07/25/2024 1:43 PM EST us Naseem JEAN BAPTISTE LAB BLOOD ORDERABLES Linda l Result [facility] [address] [place] [address], * (ABNORMAL) Comprehensive metabolic panel (07/25/2024 1:43 PM EST) Pathologist [facility] Sodium 138 133 - 145 mmol/L LAB CHEMISTRY METHOD 07/25/2024 4:54 PM [facility] Potassium 3.5 3.5 - 5.5 mmol/L LAB CHEMISTRY METHOD 07/25/2024 4:54 PM [facility] Chloride 102 96 - 110 mmol/L LAB CHEMISTRY METHOD 07/25/2024 4:54 PM [facility] CO2 29 21 - 32 mmol/L LAB CHEMISTRY METHOD 07/25/2024 4:54 PM [facility] Anion Gap 7 3 - 11 LAB CHEMISTRY METHOD 07/25/2024 4:54 PM [facility] Glucose 111(H) 70 - 100 mg/dL LAB CHEMISTRY METHOD 07/25/2024 4:54 PM [facility] BUN 10 5 - 25 mg/dL LAB CHEMISTRY METHOD 07/25/2024 4:54 PM [facility] Creatinine 1.09 0.70 - 1.30 mg/dL LAB CHEMISTRY METHOD 07/25/2024 4:54 PM [facility] eGFR 76 >=60 mL/min/1. 73m2 LAB CHEMISTRY METHOD 07/25/2024 4:54 PM [facility] Comment:Calculation based on the??Chronic Kidney Disease Epidemiology Collaboration (CKD-EPI) equation refit??without adjustment for race. BUN/Creatinine Ratio 9.2 LAB CHEMISTRY METHOD 07/25/2024 4:54 PM [facility] Calcium 9.6 8.5 - 10.5 mg/dL LAB CHEMISTRY METHOD 07/25/2024 4:54 PM [facility] AST (SGOT) 17 10 - 42 unit/L LAB CHEMISTRY METHOD 07/25/2024 4:54 PM [facility] ALT (SGPT) 34 10 - 60 unit/L LAB CHEMISTRY METHOD 07/25/2024 4:54 PM [facility] Alkaline Phosphatase 98 42 - 121 unit/L LAB CHEMISTRY METHOD 07/25/2024 4:54 PM [facility] Total Protein 7.0 6.0 - 8.0 g/dL LAB CHEMISTRY METHOD 07/25/2024 4:54 PM [facility] Albumin 3.9 3.2 - 5.0 g/dL LAB CHEMISTRY METHOD 07/25/2024 4:54 PM EST [facility] Total Bilirubin 1.3 0.0 - 1.4 mg/dL LAB CHEMISTRY METHOD 07/25/2024 4:54 PM EST [facility] Blood Venous blood specimen / Unknown Venipuncture / Unknown 07/25/2024 1:43 PM EST 07/25/2024 1:43 PM EST us Naseem JEAN BAPTISTE LAB BLOOD ORDERABLES Linda l Result [facility] [address] [place] [address], * Depression Screening (05/24/2024) Depression Screening abstracted Historical Provider HEALTH MAINTENANCE Final Result * CT LUNG SCREENING LOW DOSE (05/02/2024 10:26 AM EDT) Anatomical Region Laterality Modality Computed Tomogra phy 05/02/2024 7:28 AM EDT Narrative 05/02/2024 10:26 AM EDT [facility] Diagnostic Imaging Department [address] [place] [id number] Patient: ??NASH AQUINO ?/Age/Sex: 1960 - 64 - M Unit#: ??[id number] ? Location/Status: ??SPDICATLS/REG CLI ? Mnemonic/Ordering Site: ??CTLUNGLD/SPCT Ordering Physician: ??GIGI LAWSON MD CT Lung Screening Low Dose - 05/02/24 - 737 Report Status:Signed Indication: Greater than 20 total pack-year smoking history, asymptomatic current smoker Technique: Low-dose CT scan of the chest obtained as a lung cancer screening study. Multiplanar reformatted images were obtained. ??Dose reduction technique: ASIR (Adaptive statistical iterative reconstruction) and/or AEC (automated exposure control) DLP: ??202.79 mGy-cm COMPARISON: March 2023. FINDINGS: Lack of intravenous contrast limits evaluation of the kwesi, vascular structures and visualized abdominal viscera. Lungs/airways: Trachea and central airways are patent. ??Mild bronchial wall thickening. ??Mild emphysematous changes. Multiple scattered pulmonary nodules, similar to prior. For example: 4 mm solid nodule left lung base (image 221) 3 mm solid juxtapleural nodule along the left major fissure (image 130) 3 mm solid nodule right middle lobe (image 107) Base of the neck, mediastinum, heart, chest wall, vessels: ??The assessment of hilar lymphadenopathy is difficult without the use of IV contrast. ??No enlarged mediastinal lymphadenopathy. ??Coronary artery calcifications. ??Low-attenuation lesion adjacent to the right pericardium is similar to prior in keeping with pericardial cyst. Upper abdomen: This study was performed without contrast and with lower than standard dose. These factors reduce the sensitivity for detection of small lesions in the upper abdomen. Hepatic steatosis. Bones/soft tissues: Degenerative changes IMPRESSION: No suspicious pulmonary nodules Lung RADS 2: Benign Appearance or Behavior - Continue annual screening with LDCT in 12 months. Dictating Physician: ??MICHELLE PETE MD Electronically Signed by: ??MICHELLE PETE MD Dic Date/Time: ??05/02/24 1010 Sign date/Time: ??05/02/24 1026 Procedure Note Michelle Pete MD - 06/08/2024 [facility] Diagnostic Imaging Department [address] [place], [place] [id number] Patient: NASH AQUINO /Age/Sex: 1960 - 64 - M Unit#: [id number] Location/Status: SPDICATLS/REG CLI Mnemonic/Ordering Site: [facility] Ordering Physician: GIGI LAWSON MD CT Lung Screening Low Dose - 05/02/24737 Report Status:Signed Indication: Greater than 20 total pack-year smoking history,asymptomatic current smoker Technique: Low-dose CT scan of the chest obtained as a lung cancerscreening study. Multiplanar reformatted images were obtained. Dose reductiontechnique: ASIR (Adaptive statistical iterative reconstruction) and/or AEC(automated exposure control) DLP: 202.79 mGy-cm COMPARISON: March 2023. FINDINGS: Lack of intravenous contrast limits evaluation of the kwesi,vascular structures and visualized abdominal viscera. Lungs/airways: Trachea and central airways are patent. Mild bronchialwall thickening. Mild emphysematous changes. Multiple scattered pulmonary nodules, similar to prior. For example: 4 mm solid nodule left lung base (image 221) 3 mm solid juxtapleural nodule along the left major fissure (image 130) 3 mm solid nodule right middle lobe (image 107) Base of the neck, mediastinum, heart, chest wall, vessels: The assessmentof hilar lymphadenopathy is difficult without the use of IV contrast. Noenlarged mediastinal lymphadenopathy. Coronary artery calcifications.Low-attenuation lesion adjacent to the right pericardium is similar to prior in keepingwith pericardial cyst. Upper abdomen: This study was performed without contrast and with lowerthan standard dose. These factors reduce the sensitivity for detection ofsmall lesions in the upper abdomen. Hepatic steatosis. Bones/soft tissues: Degenerative changes IMPRESSION: No suspicious pulmonary nodules Lung RADS 2: Benign Appearance or Behavior - Continue annual screeningwith LDCT in 12 months. Dictating Physician: MICHELLE PETE MD Electronically Signed by: MICHELLE PETE MD Dic Date/Time: 05/02/24 1010 Sign date/Time: 05/02/24 1026 Gigi Lawson MD IMG CT PROCEDURES Final Result * Colonoscopy (05/22/2022) Colonoscopy abstracted, no interpretation Anatomical Region Laterality Modality Other Historical Provider HEALTH MAINTENANCE Final Result * Hepatitis C Screening (05/24/2019) Hepatitis C Screening abstracted Historical Provider HEALTH MAINTENANCE Final Result from Last 3 Months or Most Recently Relevant to Health Maintenance Insurance [facility] [employer] Care Teams Power Ballast Machine Operator Relationship Specialty Start Date End Date Naseem Huddleston PA [address] [place] [address] PCP - General Internal Medicine 11/26/20
--- OUTSIDE RECORDS SUMMARY | 2024-11-24 08:52 | XMS_ITS | Encounter Summary ---
Author Organization [facility] Address [address] [place] [address] Care Team Providers Care Director Of Cardiopulmonary Services Name Role Phone Naseem Huddleston Primary Care Provider [phone] Reason for Visit * Reason Onset Date Comments Shoulder Pain 07/25/2024 Left Shoulder Encounter Details Date Type Department Care Team (Late st Contact Info) Description 07/25/2024 Nurse Triage Adult Medicine [address] [phone] Naseem Huddleston PA [address] [place] [id number] Shoulder Pain (Left Shoulder ) Social History Tobacco Use Types Packs/Day Years [...] as of this encounter Progress Notes * Zachery Rhoades RN - 07/25/2024 10:47 AM EST Reason for Disposition Numbness (i.e., loss of sensation) in hand or fingers Answer Assessment - Initial Assessment Questions 1. ONSET: When did the pain start? 5 weeks ago worse on thursday 2. LOCATION: Where is the pain located? Left shoulder to neck to back down arm 3. PAIN: How bad is the pain? (Scale 1-10; or mild, moderate, severe) - MILD (1-3): Doesn't interfere with normal activities. - MODERATE (4-7): Interferes with normal activities (e.g., work or school) or awakens from sleep. - SEVERE (8-10): Excruciating pain, unable to do any normal activities, unable to move arm at all due to pain. [birth year] 4. WORK OR EXERCISE: Has there been any recent work or exercise that involved this part of the body? Laid on it for a long time 5. CAUSE: What do you think is causing the shoulder pain? unknown 6. OTHER SYMPTOMS: Do you have any other symptoms? (e.g., neck pain, swelling, rash, fever, numbness, weakness) Neck pain back tingling and pins and needles no swelling able to move and feel and hold object Protocols used: Shoulder Pain-A-AH Pt denies any swelling or chest pain no new sob sts is always sob on inhalers with relief. No sweating no nausea. 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 Pt had to lay on his left side to do construction work. Pt had neck pain andhard time sleeping. Tingling feeling down the arms. Pt thinks it was blood clot??? How long has patient had these symptoms?: 5 weeks and getting worst now For ALL patients calling to schedule any appointment (routine, sick visit, follow up, consult, etc.) in the outpatient setting please ask the following questions: Do you have fever of higher than 101, sore throat with difficulty swallowing or severe shortness ofbreath? Yes, SOB If YES to any of these above symptoms, send a message to triage and do not book. Red dot. If no, an audio or video visit should be booked. Have you had close contact with someone with Coronavirus in the last 14 days? no Have you traveled abroad? no Have you traveled recently to another state outside of [place], [place], [place], [place], [place], [place], [place]? no o If yes, did you quarantine for 14 days or have a negative covid test? no If yes to any of the above, patient is not to be scheduled in office until after 14 day quarantine or negative covid test. If pain or injury related was it due to an accident at work or from a motor vehicle accident? If yes, date of accident/Injury: No If yes, gather 3rd libertarian insurance information Third Democrat Information: not applicable PCP: MARKEL Fonseca Payor: / No coverage found. documented in this encounter Plan of Treatment Upcoming Encounters Date Type Department Care Team (Late st Contact Info) Description 03/27/2025 8:00 AM EDT Office Visit Adult Medicine [address] [phone] Naseem Huddleston PA [address] [place] [address] documented as of this encounter Visit Diagnoses Not on filedocumented in this encounter Care Teams Director Of Cardiopulmonary Services Relationship Specialty Start Date End Date Naseem Huddleston PA [address] [place] [address] PCP - General Internal Medicine 11/26/20 documented as of this encounter
--- OUTSIDE RECORDS SUMMARY | 2024-11-24 08:52 | XMS_ITS | Encounter Summary ---
Author Organization [facility] [place] [address] Care Team Providers Care Sponge Press Operator Name Role Phone Naseem Huddleston Primary Care Provider [phone] Reason for Visit * Reason Onset Date Comments Rectal Bleeding 10/21/2024 Anal Itching 10/21/2024 Encounter Details Date Type Department Care Team (Late st Contact Info) Description 10/21/2024 Telephone Adult Medicine [facility] [address] [place] [address] Naseem Huddleston PA [address] [place] [phone] Rectal Bleeding; Anal Itching Social History Tobacco Use Types Packs/Day Years [...] as of this encounter Progress Notes * Laurie Tolbert RN - 10/21/2024 10:22 AM EST He did stop taking it and wanted PCP to be aware * MARKEL Flores - 10/21/2024 10:08 AM EST Well if he is unable to tolerate the prednisone he can stop taking it * Laurie Tolbert RN - 10/21/2024 9:35 AM EST Taking senna as prescribed and irritating the bowels and having rectal bleeding. Would like to go back to the surgeon about his hemorrhoids. Gave name and # for dr. Haile that he saw last year. Advised if needing new referral to call the office. Wants PCP to know that the prednisone makes him sick did take with food and with juice but is stillmaking him sick when he takes it. Took 11 of 18 tabs. Remembers taking it from Dr. Christian and it made him sick then too. * Jacinta Bello - 10/21/2024 8:57 AM EST The patient is calling due to rectal bleeding and was wondering (since he was seen for this matter before) if he can be referred to the specialist he has seen for this matter. If you can please call the patient via phone number [phone]. He also informed me that MARKEL Fonseca is aware of this matter and a medication that he normally prescribes him for this issue. States so far this morning he has not had rectal bleeding but has not went to the bathroom either. Please Advise. documented in this encounter Plan of Treatment Upcoming Encounters Date Type Department Care Team (Late st Contact Info) Description 03/27/2025 8:00 AM EDT Office Visit Adult Medicine [facility] [address] [place] [phone] Naseem Huddleston PA [address] [place] [address] documented as of this encounter Goals Goal Patient Goal Type Associated Problems Recent Progress Patient-Stated? Author feel better General Yes Darvin Barone PT STG General No Darvin Barone PT Note: Pt will be instructed in and provided with HEP. documented as of this encounter Visit Diagnoses Not on filedocumented in this encounter Care Teams Sponge Press Operator Relationship Specialty Start Date End Date Naseem Huddleston PA [address] [place] [address] PCP - General Internal Medicine 11/26/20 documented as of this encounter
--- OUTSIDE RECORDS SUMMARY | 2024-11-24 08:52 | XMS_ITS | Encounter Summary ---
Author Organization [facility] [place] [address] Care Team Providers Care Coffee Plantation Worker Name Role Phone Naseem Huddleston Primary Care Provider [phone] Reason for Visit * Reason Onset Date Comments Diarrhea 10/04/2024 Encounter Details Date Type Department Care Team (Late st Contact Info) Description 10/04/2024 Nurse Triage Adult Medicine [facility] [address] [place] [phone] Naseem Huddleston PA [address] [place] [address] Diarrhea Social History Tobacco Use Types Packs/Day Years [...] on file documented as of this encounter Ordered Prescriptions Prescription Sig Dispense Quantity Refills Last Filled Start Date End Date lubiprostone (AMITIZA) 8 mcg capsule Take 1 capsule (8 mcg total) by mouth 2 (two) times a day with meals. 60 each 11 10/06/2024 documented in this encounter Progress Notes * Amanda Petty RN - 10/06/2024 9:38 AM EST Spoke to pt. And informed him of message from pcp and that rx was sent. Pt. Also asking about referral ,he has not heard from anyone in over 2 weeks Nash Aquino. Requesting Dr. Aury Mitchell. Advised pt. Referral has been placed on 09/23 if he prefers this provider ,to reach out to office to verify provider is accepting pt.'s . Pt. Agrees * MARKEL Flores - 10/06/2024 9:19 AM EST We could try Amitiza instead we will send Rx. It looks like we did order the MRI I am not sure if Ican increase the urgency. It might be helpful for him to touch base with orthopedics as well I would say * Amanda Petty RN - 10/06/2024 8:40 AM EST Spoke with pt. He has multiple complaints but then states they are issues he has had for months . At present time he is callling mainly because he started a new medication Linzess which is causing severe diarrhea. Pt. States from 8 -12 am he was having diarrhea and awoke with diarrhea in bed . He denies -black stool -No abd. Pain - no fever or chills No additional dry mouth, -no lightheadedness or weakness No cp or sob at present time . Pt. Does state he has had left shoulder pain for months and is awaiting a MRI . He states he has had in the past left axillary pain that radiated to chest or neck , butsts this occurs only with movement and does not feel sob or weak with it . I offered pt. An apt. Todiscuss and he declined. He sts he is really only calling for tow things To request a high priority with his MRI and to change his medication to something else. Pt. Stoppedtaking the Linzess and is currently taking Senna - time he had prescribed from another provider and sts it works but causes abd. Cramping . Would like to know if there is something else . I informed pt. I would send a message to PCP and Advised if he develops left sided chest pain,neck or shoulder pain that is not related to lifting or moving his arm ,sob or weakness he should be evaluated in the ER. Pt. agrees * Mercedez Hsu - 10/05/2024 4:42 PM EST Patient returned call to triage * Laurie Tolbert RN - 10/05/2024 4:20 PM EST Left vm for pt to return my call. * Magdalena Manning - 10/05/2024 3:50 PM EST Patient calling in today stating that he is having uncontrolled diarrhea due to medication Linzess.Patient states this is a stool softener which is working but can't make it to the toilet on time. States woke this morning with diarrhea all over the bed. Would like Fuad to prescribe Senna 8.5mg as this is something he has had in the past. Patient is jumping from thing to thing during this call. In the end he is asking to speak with the nurse that he spoke with yesterday because this medication is not happening, I am not taking this . * Chelo Aguilar - 10/04/2024 9:14 AM EST Medication Problem: stool softer and gabapentin What is the name of the medication patient is having a problem with?: What is the problem?: patient is in sever pain, wants to discuss other options for gabapentin due to systems not becoming better. Patient was put on a stool softer however when patient takes medication. Patients systems are flushing out of system. Patient would like to discuss times of taking medication, other possible medicaiton options. Who is calling about the problem? : The patient Is this a NEW medication?: yes How long has the patient been taking this medication? Who prescribed this medication for the patient? Naseem huddleston Who is patients PCP?: MARKEL Fonseca [facility] [employer] [facility] / Plan: [facility] MEDICAID / Product Type: *No Product type* / documented in this encounter Plan of Treatment Upcoming Encounters Date Type Department Care Team (Late st Contact Info) Description 03/27/2025 8:00 AM EDT Office Visit Adult Medicine [facility] [address] [place] [phone] Naseem Huddleston PA [address] [place] [address] documented as of this encounter Goals Goal Patient Goal Type Associated Problems Recent Progress Patient-Stated? Author feel better General Yes Darvin Barone PT STG General No Darvin Barone PT Note: Pt will be instructed in and provided with HEP. documented as of this encounter Visit Diagnoses Not on filedocumented in this encounter Care Teams Coffee Plantation Worker Relationship Specialty Start Date End Date Naseem Huddleston PA [address] [place] [address] PCP - General Internal Medicine 11/26/20 documented as of this encounter
== END 2024-11-24 09:58 | disposition home or self-care (01) ==
LOC: HO.HOS 08:44
PROVIDERS: PCP Physician Assistant Medical; Visit Provider Physician Assistant
DX: M75.52 Bursitis of left shoulder (principal); M54.12 Radiculopathy, cervical region; M77.8 Other enthesopathies, not elsewhere classified
CPT/HCPCS: 20610; 99204

== ENCOUNTER → 2024-11-24 08:45 | Outpatient (BNV) | payer OTHER, SELFPAY | PROVIDERS: Visit Provider Radiology Diagnostic Radiology | DX: M25.512 Pain in left shoulder (principal) | CPT/HCPCS: 73030 ==

== ENCOUNTER 2024-12-29 09:20 | Outpatient (AMB) | payer OTHER, SELFPAY ==
--- NOTE | 2024-12-29 09:32 | MHC.OFFVIS ---
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 Referred by PCP office Naseem Huddleston. Patient states he is a old patient of Dr. Murguia. States he is having ongoing pain. Pain is across his lower back radiates to his left buttock area. He has numbness and tingling down the back of his thigh and feet. Pain is worse with prolong standing and walking. Last lower back was in [address] Christian. Hx of left shoulder injection with P.Anna Libby in 11/24/24. No MRI done for lower back. Allergies acetaminophen [From TYLOX] Allergy (Unknown, Verified 12/29/24 09:38) NAUSEA & VOMITING Penicillins [PENICILLINS] Allergy (Unknown, Verified 12/29/24 09:38) UNKNOWN From TYLOX Allergy (Unknown, Uncoded 12/29/24 09:38) NAUSEA & VOMITING Medication List - Last Reconciled 12/29/24 by Aury Tena MD albuterol 90 mcg/actuation mcg inhalation aspirin mg PO DAILY atorvastatin mg PO DAILY famotidine mg PO DAILY gabapentin 100 mg PO DAILY hydrochlorothiazide mg PO DAILY methocarbamol mg PO 3XD pantoprazole mg PO DAILY trazodone mg PO DAILY PRN verapamil ER mg PO DAILY HPI Comments Details: I have known Nash from practice at [facility] many years ago. Previously treated him for different musculoskeletal complaints such as shoulder pain, elbow pain, neck pain, back pain. He wants to transfer care under me for more comprehensive physiatry care. Despite complaints of neck pain and shoulder pain, he would like to concentrate on lower back pain today. Last injection by Dr. Christian was probably in 2022. Patient remembers presenting for left-sided back pain (which is usually his chronic side but he complained of right-sided pain on the day of injection, so TFEs were done in the right side instead.) No other back injections since then. Patient continues to have lower back pain that always radiates down to the left buttocks and left posterior thigh. He has chronic numbness in both legs, blamed on vascular disease. Last procedure under vascular 09/2019. He also has history of tib-fib fracture in 2020. He has not had physical therapy for lower back pain. He did have PT recently for left shoulder. He was recently seen by Libby for left shoulder, received injection 11/24/2024. Last lumbar MRI probably was before 2019. He has been prescribed gabapentin by his primary care but he only takes this as needed. Takes methocarbamol as needed as well. He is on Xarelto. [facility] Medical History (Updated 12/29/24 @ 10:00 by Aury Tena MD) Chronic back pain Social History Alcohol intake: former Cigarette Packs Per Day: 1 Current occupational status: disabled Physical Exam Vital Signs: BMI result Body Mass Index 38.2 Constitutional: Patient appears to be in no acute distress, well nourished and well developed. Patient was appropriately conversant and oriented. Good historian. MSK: No specific abnormalities found on inspection of the spine and all extremities. Tends to lean towards the right. No focal tenderness over SI joint or GT. No focal tenderness over paraspinals or quadratus lumborum. Neurological: Neurologic examination of the upper and lower extremities was nonfocal with intact sensation, muscle stretch reflexes and without focal motor deficits . Cesar?s negative bilaterally. Babinski was down going bilaterally. Clonus was negative. Gait is non-antalgic without loss of balance. Results Reviewed Results Reviewed: Reviewed notes from Dr. Christian and [facility]. Assessment & Plan Assessment & Plan (1) Left lumbar radiculopathy: Code(s): M54.16 - Radiculopathy, lumbar region Category: Medical Plan Chronic lower back pain, always radiates to the left side. History of peripheral vascular disease. Other complaints of neck pain and left shoulder pain. Today we concentrated on lower back pain. His last MRIs been over 5 years. Last injection over 2 years. He has not needed injections more than every 2 years. But symptoms have gotten back to where it was. We agreed on referring him to physical therapy. He wants to pursue this under [facility]. After PT, we will evaluate if we should repeat lumbar MRI. Advised that gabapentin should not be taken as needed only, more efficacious if they can routinely. He will start taking 300 mg q.h.s. discussed side effects and precautions. Assessment and plan discussed with patient, and patient was agreeable. All questions were answered thoroughly. Follow up 4-6 weeks. Aury Tena MD, BILL Board Certified, [place] [employer] and Rehabilitation (ABPMR) Board Certified, [place] Board of Electrodiagnostic Medicine (ABEM) Orders: Orders PT Evaluation and Treatment Today G89.29 - Other chronic pain, M54.16 - Radiculopathy, lumbar region, M54.9 - Dorsalgia, unspecified Coding Level of Care Code New Pt Level 4 (65037) Complex EM visit Add On G2211 Diagnoses Left lumbar radiculopathy M54.16
[2024-12-29 09:33] VITALS: BMI 38.2
--- OUTSIDE RECORDS SUMMARY | 2024-12-29 09:56 | XMS_ITS | Encounter Summary ---
Author Organization [facility] [place] [address] Care Team Providers Care Golf Club Facer Name Role Phone Naseem Huddleston Primary Care Provider [phone] Reason for Visit * Reason Onset Date Comments Diarrhea 10/04/2024 Encounter Details Date Type Department Care Team (Late st Contact Info) Description 10/04/2024 Nurse Triage Adult Medicine [facility] [address] [place] [phone] Naseem Huddleston PA [address] [place] [address] Diarrhea Social History Tobacco Use Types Packs/Day Years Used Date Smoking Tobacco: Every Day Cigarettes 1 50.7 Started: 04/07/1974 Smokeless Tobacco: Never Alcohol Use [...] Who is patients PCP?: MARKEL Fonseca [facility] PLAN / Plan: [facility] MEDICAID / Product Type: *No Product type* / documented in this encounter Plan of Treatment Upcoming Encounters Date Type Department Care Team (Late st Contact Info) Description 03/27/2025 8:00 AM EDT Office Visit Adult Medicine [facility] [address] [place] [phone] Naseem Huddleston PA [address] [place] [address] documented as of this encounter Goals Goal Patient Goal Type Associated Problems Recent Progress Patient-Stated? Author feel better General Yes Darvin Barone PT STG General No Darvin Barone PT Note: Pt will be instructed in and provided with HEP. documented as of this encounter Visit Diagnoses Not on filedocumented in this encounter Care Teams Golf Club Facer Relationship Specialty Start Date End Date Naseem Huddleston PA [address] [place] [address] PCP - General Internal Medicine 11/26/20 documented as of this encounter
--- OUTSIDE RECORDS SUMMARY | 2024-12-29 09:56 | XMS_ITS | Encounter Summary ---
Author Organization [facility] Address [address] [place] [address] Care Team Providers Care Customer Service Advisor Name Role Phone Naseem Huddleston Primary Care Provider [phone] Reason for Referral * Imaging (Routine) - Pending Review Specialty Diagnoses / Procedures Referred By Windy tillman Referred To Contact Radiology Diagnoses Swelling of left parotid gland Procedures US Head Neck Soft Tissue Nidia De Leon PA [address] [place] [address] Phone: tel: fax: [address] Phone: tel: Referral ID Status Reason Start Date Expiration Date V isits Requested Visits Authorized [id number] Pending Review 12/26/2024 12/26/2025 1 1 Reason for Visit * Reason Comments Facial Swelling Encounter Details Date Type Department Care Team (Late st Contact Info) Description 12/26/2024 1:30 PM EDT Office Visit Adult Medicine [address] [phone] Nidia De Leon PA [address] [place] [address] Swelling of left parotid gland (Primary Dx); Tobacco use disorder; Alcohol use Social History Tobacco Use Types Packs/Day Years Used Date Smoking Tobacco: Every Day Cigarettes 1 50.7 Started: 04/07/1974 Smokeless Tobacco: Never Tobacco Cessation:Ready [...] on file documented as of this encounter Last Filed Vital Signs Vital Sign Reading Time Taken Comments Blood Pressure 130/60 12/26/2024 1:15 PM EDT Pulse 68 12/26/2024 1:15 PM EDT Temperature 36.5 ??C (97.7 ??F) 12/26/2024 1:15 PM ED T Respiratory Rate 16 12/26/2024 1:15 PM EDT Oxygen Saturation 97% 12/26/2024 1:15 PM EDT Inhaled Oxygen Concentration - - Weight 111 kg (243 lb 12.8 oz) 12/26/2024 1:15 P M EDT Height 170.2 cm (5' 7 ) 12/26/2024 1:15 PM EDT Body Mass Index 38.18 12/26/2024 1:15 PM EDT documented in this encounter Progress Notes * MARKEL Duenas - 12/26/2024 1:30 PM EDT CHIEF COMPLAINT: Facial Swelling IDENTIFIER: Nash Aquino is a 64 y.o. old male. History of Present Illness The patient presents for evaluation of neck swelling which started yesterday. He was laying in the bed when he noticed the left neck swelling. This swelling is particularly noticeable when he eats and subsides approximately 30 minutes post-meal. He denies dysphagia, fever, sweats, chills, unintentional weight loss, URI symptoms, voice changes. He has a history of smoking one pack of cigarettes daily and occasional alcohol consumption, with only two instances this year. He also admits to marijuana use. ROS: GENERAL: No malaise, significant weight loss or fever HEENT: No changes in hearing or vision, nose bleeds or other nasal problems NECK: See HPI RESPIRATORY: No cough, wheezing or shortness of breath CARDIOVASCULAR: No chest pain, leg swelling or palpitations GI: No dysphagia PAST MEDICAL HISTORY: Patient Active Problem List Diagnosis Date Noted Alcohol use 09/23/2024 Chronic low back pain 09/23/2024 Deep vein thrombosis (DVT) ([facility] V24, [facility] V28) 09/23/2024 Diverticula of intestine 09/23/2024 Hepatic steatosis 09/23/2024 Obesity with body mass index 30 or greater 09/23/2024 Peripheral arterial occlusive disease ([facility] V24) 09/23/2024 HTN (hypertension) 09/23/2024 Severe obesity (BMI 35.0-39.9) with comorbidity ([facility] V24, [facility] V28) 09/23/2024 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 Chronic obstructive pulmonary disease ([facility] V24, [facility] V28) 09/18/2023 Coronary artery disease 12/25/2021 Primary insomnia 12/16/2021 Dyspnea on exertion 12/04/2020 Marijuana use 05/27/2019 Marijuana use 05/27/2019 Lumbar radiculitis 03/20/2019 Lumbar radiculitis 03/20/2019 Tobacco use disorder 03/19/2015 Hyperlipidemia 12/12/2014 Anxiety 07/28/2012 Panic disorder 07/28/2012 Depression 12/23/2011 Gastroesophageal reflux disease 12/23/2011 PVD (peripheral vascular disease) ([facility] V24) 12/23/2011 Past Surgical History: Procedure Laterality Date COLONOSCOPY 02/02/2012 PROCEDURE: OR COLONOSCOPY FLX DX W/COLLJ SPEC WHEN PFRMD; COMMENT: normal COLONOSCOPY 05/22/2022 PROCEDURE: HISTORICAL COLONOSCOPY; COMMENT: tubular adenomas ESOPHAGOGASTRODUODENOSCOPY 05/22/2022 PROCEDURE: OR EGD TRANSORAL BIOPSY SINGLE/MULTIPLE; COMMENT: GERD LEG SURGERY Right PROCEDURE: HISTORICAL LEG SURGERY; COMMENT: right tib/fib fx orif OTHER SURGICAL HISTORY 05/2015 PROCEDURE: ENDOVAS NON-CARDIAC ABL CATH; COMMENT: right leg, left arm PVD OTHER SURGICAL HISTORY PROCEDURE: OR BYPASS W/VEIN [id number]; COMMENT: dr. walsh SOCIAL HISTORY: Social History Tobacco Use Smoking status: Every Day Current packs/day: 1.00 Average packs/day: 1 pack/day for 50.7 years (50.7 ttl pk-yrs) Types: Cigarettes Start date: 04/07/1974 Smokeless tobacco: Never Substance Use Topics Alcohol use: Yes FAMILY HISTORY: Family History Problem Relation Name Age of Onset Heart attack Mother Stroke Mother Other (Other: not sure) Father estranged Heart attack Brother 32.00 MEDICATIONS DISCONTINUED/REORDERED: Medications Discontinued During This Encounter Medication Reason docusate sodium (COLACE) 100 mg capsule Patient Discharge doxepin (SINEquan) 10 mg capsule Patient Discharge hydrocortisone (ANUSOL-HC) 25 mg suppository Patient Discharge polyethylene glycol (MIRALAX) 17 gram packet Patient Discharge senna (SENOKOT) 8.6 mg tablet Patient Discharge ACTIVE MEDICATIONS: Outpatient Medications Marked as Taking for the 12/26/24 encounter (Office Visit) with MARKEL Duenas Medication Sig Dispense Refill albuterol HFA (PROAIR HFA ; PROVENTIL HFA ; VENTOLIN HFA) 90 mcg/actuation inhaler Inhale 2 puffs by mouth every 4 (four) hours if needed for wheezing. 6.7 g 11 aspirin 81 mg EC tablet TAKE 1 TABLET BY MOUTH EVERY DAY 90 tablet 1 atorvastatin (LIPITOR) 40 mg tablet Take 1 tablet (40 mg total) by mouth 1 (one) time each day. 90 tablet 3 diclofenac (VOLTAREN) 1 % topical gel Apply 4 gram four times daily to affected joint 100 g 3 famotidine (PEPCID) 20 mg tablet Take 1 tablet (20 mg total) by mouth 2 (two) times a day. 180 tablet 3 gabapentin (NEURONTIN) 300 mg capsule Take 1 capsule (300 mg total) by mouth 3 (three) times a day.at bedtime 270 capsule 3 hydroCHLOROthiazide (HYDRODIURIL) 25 mg tablet Take 1 tablet (25 mg total) by mouth 1 (one) time each day. 90 tablet 1 methocarbamoL (ROBAXIN) 750 mg tablet Take 1 tablet (750 mg total) by mouth 3 (three) times a day. 270 tablet 3 pantoprazole (PROTONIX) 40 mg EC tablet Take 1 tablet (40 mg total) by mouth 1 (one) time each day.Do not crush, chew, or split. 90 tablet 3 rivaroxaban (Xarelto) 15 mg tablet Take 1 tablet (15 mg total) by mouth 1 (one) time each day. Takewith food. 90 tablet 3 traZODone (DESYREL) 50 mg tablet Take 1 tablet (50 mg total) by mouth at bedtime as needed for sleep. 30 tablet 11 verapamil SR (CALAN-SR) 240 mg CR tablet Take 1 tablet (240 mg total) by mouth at bedtime. at bedtime. 90 tablet 3 ALLERGIES: Allergies Allergen Reactions Tyloxapol Itching MAKES HIM HAVE CONSTIPATION SWEATING CAN'T SLEEP AND ITCHY Lisinopril Facial swelling Penicillins Other Passed out PHYSICAL EXAM: Blood pressure 130/60, pulse 68, temperature 36.5 ??C (97.7 ??F), temperature source Temporal, resp. rate 16, height 1.702 m (67 ), weight 111 kg (243 lb 12.8 oz), SpO2 97%. Body mass index is 38.18 kg/m??. BMI is greater than 25.0 (above the normal range) - see Plan APPEARANCE: Alert and in no acute distress EYES: PERRLA, conjunctiva and sclera normal EARS: External ears normal. Canals clear. TMs normal NOSE/SINUS: Nares normal. Septum midline. Mucosa normal. No drainage or sinus tenderness THROAT: No erythema or exudates. Uvula is midline NECK: Neck supple, no adenopathy, thyroid symmetric and of normal size. Left parotid swelling HEART: RRR with normal S1 and S2, no murmurs, no gallops LUNG: Clear to auscultation EXTREMITIES: No edema NEURO: Awake, alert LABS: Lab Results Component Value Date NA 138 07/25/2024 K 3.5 07/25/2024 CL 102 07/25/2024 CO2 29 07/25/2024 GLUCOSE 111 (H) 07/25/2024 BUN 10 07/25/2024 CREATININE 1.09 07/25/2024 CALCIUM 9.6 07/25/2024 PROT 7.0 07/25/2024 ALBUMIN 3.9 07/25/2024 BILITOT 1.3 07/25/2024 AST 17 07/25/2024 ALT 34 07/25/2024 ALKPHOS 98 07/25/2024 EGFR 76 07/25/2024 IMAGING: Ordered IMPRESSION/PLAN: 1. Swelling of left parotid gland US Head Neck Soft Tissue 2. Tobacco use disorder 3. Alcohol use Medication and lab orders: Orders Placed This Encounter Procedures US Head Neck Soft Tissue Other orders: None Assessment & Plan 1. Swelling of the left parotid gland - Swelling becomes more prominent during meals - He denies pain, fever, dysphagia, hoarseness, hot potato voice - Swelling noted in the left parotid gland area on examination - Ultrasound of the neck will be ordered to evaluate the swelling - If ultrasound results are abnormal or inconclusive, a CT scan will be considered - Risk factors for head and neck cancer including alcohol abuse, smoking. Not interested in smokingcessation Advised the patient to call me if any problems. Patient understands the plan. Patient is in agreement with the plan. Today's documentation was made using voice recognition software.This note may contain grammatical errors secondary to this software. I have obtained verbal consent from Nash Aquino prior to the recording. I have advised aNsh Aquino that he may refuse the recording and require the recording to be turned off at any time duringthis encounter. Nidia De Leon PA-C documented in this encounter Plan of Treatment Upcoming Encounters Date Type Department Care Team (Late st Contact Info) Description 03/27/2025 8:00 AM EDT Office Visit Adult Medicine [facility] [address] [place] [phone] Naseem Huddleston PA [address] [place] [address] documented as of this encounter Goals Goal Patient Goal Type Associated Problems Recent Progress Patient-Stated? Author feel better General Yes Darvin Barone PT STG General No Darvin Barone PT Note: Pt will be instructed in and provided with HEP. documented as of this encounter Results * US Head Neck Soft Tissue (12/26/2024 2:15 PM EDT) Anatomical Region Laterality Modality Head and Neck Ultrasound 12/26/2024 2:45 PM EDT Impressions 12/26/2024 2:45 PM EDT Unremarkable exam. -------- FINAL REPORT -------- Dictated By: Mary Lucia Dictated Date: 12/26/2024 14:45 ET Assigned Physician: Mary Lucia Reviewed and Electronically Signed By: Mary Lucia Signed Date: 12/26/2024 14:45 ET Workstation ID: [id number] Transcribed By: Self Edit Transcribed Date: 12/26/2024 14:45 ET Narrative 12/26/2024 2:45 PM EDT US HEAD NECK SOFT TISSUE SONO SOFT TISSUE HISTORY: Left parotid gland swelling x1 day. PRIORS: None. FINDINGS: ??Ultrasound evaluation of the left parotid gland was performed. There is no cyst or solid mass. There is no lymphadenopathy. Procedure Note Mary Lucia MD - 12/26/2024 US HEAD NECK SOFT TISSUE SONO SOFT TISSUE HISTORY: Left parotid gland swelling x1 day. PRIORS: None. FINDINGS: Ultrasound evaluation of the left parotid gland wasperformed. There is no cyst or solid mass. There is no lymphadenopathy. IMPRESSION: Unremarkable exam. -------- FINAL REPORT -------- Dictated By: Mary Lucia Dictated Date: 12/26/2024 14:45 ET Assigned Physician: Mary Lucia Reviewed and Electronically Signed By: Mary Lucia Signed Date: 12/26/2024 14:45 ET Workstation ID: [id number] Transcribed By: Self Edit Transcribed Date: 12/26/2024 14:45 ET us Nidia Moises [facility] IM[facility] US PROCEDURES Final Result documented in this encounter Visit Diagnoses Diagnosis Swelling of left parotid gland- Primary Tobacco use disorder Alcohol use Other problems related to lifestyle Swelling of left parotid gland documented in this encounter Discontinued Medications Medication Sig Discontinue Reason Start Date End Da te docusate sodium (COLACE) 100 mg capsule TAKE 1 CAPSULE BY MOUTH TWICE A DAY Patient Discharge 09/21/2024 12/26/2024 doxepin (SINEquan) 10 mg capsule TAKE 1 CAPSULE BY MOUTH AT BEDTIME NEEDED (FOR INSOMNIA). Patient Discharge 05/24/2024 12/26/2024 hydrocortisone (ANUSOL-HC) [address] 1 Suppository rectally 2 times daily. Patient Discharge 03/22/2024 12/26/2024 polyethylene glycol (MIRALAX) 17 gram packet Take 1 Packet by mouth daily. Patient Discharge 03/22/2024 12/26/2024 senna (SENOKOT) 8.6 mg tablet Take 2 tablets (17.2 mg total) by mouth 2 (two) times a day if needed for constipation. Patient Discharge 10/11/2024 12/26/2024 documented as of this encounter Care Teams Customer Service Advisor Relationship Specialty Start Date End Date Naseem Huddleston PA [address] [place] [address] PCP - General Internal Medicine 11/26/20 documented as of this encounter
--- OUTSIDE RECORDS SUMMARY | 2024-12-29 09:56 | XMS_ITS | Encounter Summary ---
Author Organization [facility] Address [address] [place] [address] Care Team Providers Care Ice Cream Chef Name Role Phone Naseem Huddleston Primary Care Provider [phone] Reason for Referral * Imaging (Routine) - Pending Review Specialty Diagnoses / Procedures Referred By Windy tillman Referred To Contact Radiology Diagnoses Swelling of left parotid gland Procedures US Head Neck Soft Tissue Nidia De Leon PA [address] [place] [address] Phone: tel: fax: [address] Phone: tel: Referral ID Status Reason Start Date Expiration Date V isits Requested Visits Authorized [id number] Pending Review 12/26/2024 12/26/2025 1 1 Reason for Visit * Imaging (Routine) - Pending Review Specialty Diagnoses / Procedures Referred By Windy tillman Referred To Contact Radiology Diagnoses Swelling of left parotid gland Procedures US Head Neck Soft Tissue Nidia De Leon PA [address] [place] [address] Phone: tel: fax: [address] Phone: tel: Referral ID Status Reason Start Date Expiration Date V isits Requested Visits Authorized [id number] Pending Review 12/26/2024 12/26/2025 1 1 Encounter Details Date Type Department Care Team (Latest Contact Info) Description 12/26/2024 1:41 PM EDT - 12/26/2024 11:59 PM EDT Hospital Encounter Radiology Department - [address] [phone] Swelling of left parotid gland Discharge Disposition: Home or Self Care Social History Tobacco Use Types Packs/Day Years [...] on file documented as of this encounter Medications at Time of Discharge albuterol HFA (PROAIR HFA ; PROVENTIL HFA ; VENTOLIN HFA) 90 mcg/actuation inhalerIndications:D yspnea on exertion,Lumbar radiculitis,Anxiety, Coronary artery disease due to lipid rich plaque,Chronic obstructive pulmonary disease with acute exacerbation (CMS/HCC V24, CMS/HCC V28),Depression, unspecified depression type,Hyperlipidemia, unspecified hyperlipidemia type,Tobacco use disorder,Primary hypertension,PVD (peripheral vascular disease) (CMS/[facility] V24),Peripheral arterial occlusive disease (CMS/[facility] V24),Need for vaccination against Streptococcus pneumoniae Inhale 2 puffs by mouth every 4 (four) hours if needed for wheezing. 6.7 g 11 09/23/2024 aspirin 81 mg EC tablet TAKE 1 TABLET BY MOUTH EVERY DAY 90 tablet 1 11/17/2024 atorvastatin (LIPITOR) 40 mg tablet Take 1 tablet (40 mg total) by mouth 1 (one) time each day. 90 tablet 3 09/23/2024 diclofenac (VOLTAREN) 1 % topical gel Apply 4 gram four times daily to affected joint 100 g 3 10/15/2024 famotidine (PEPCID) 20 mg tablet Take 1 tablet (20 mg total) by mouth 2 (two) times a day. 180 tablet 3 10/15/2024 gabapentin (NEURONTIN) 300 mg capsule Take 1 capsule (300 mg total) by mouth 3 (three) times a day. at bedtime 270 capsule 3 09/23/2024 hydroCHLOROthiazide (HYDRODIURIL) 25 mg tablet Take 1 tablet (25 mg total) by mouth 1 (one) time each day. 90 tablet 1 09/23/2024 methocarbamoL (ROBAXIN) 750 mg tablet Take 1 tablet (750 mg total) by mouth 3 (three) times a day. 270 tablet 3 10/17/2024 pantoprazole (PROTONIX) 40 mg EC tablet Take 1 tablet (40 mg total) by mouth 1 (one) time each day. Do not crush, chew, or split. 90 tablet 3 10/15/2024 rivaroxaban (Xarelto) 15 mg tablet Take 1 tablet (15 mg total) by mouth 1 (one) time each day. Take with food. 90 tablet 3 09/23/2024 traZODone (DESYREL) 50 mg tablet Take 1 tablet (50 mg total) by mouth at bedtime as needed for sleep. 30 tablet 11 09/23/2024 verapamil SR (CALAN-SR) 240 mg CR tablet Take 1 tablet (240 mg total) by mouth at bedtime. at bedtime. 90 tablet 3 11/16/2024 documented as of this encounter Discharge Disposition Disposition Code Departure Means Destination Home or Self Care documented in this encounter Plan of Treatment Upcoming Encounters Date Type Department Care Team (Late st Contact Info) Description 03/27/2025 8:00 AM EDT Office Visit Adult Medicine [facility] [address] [place] [address] Naseem Huddleston PA [address] [place] [address] documented as of this encounter Goals Goal Patient Goal Type Associated Problems Recent Progress Patient-Stated? Author feel better General Yes Darvin Barone PT STG General No Darvin Barone PT Note: Pt will be instructed in and provided with HEP. documented as of this encounter Procedures Procedure Name Priority Date/Time Associated Diagnosis Comments US HEAD NECK SOFT TISSUE Routine 12/26/2024 2:15 PM EDT Swelling of left parotid gland documented in this encounter Results * US Head Neck Soft Tissue (12/26/2024 2:15 PM EDT) Anatomical Region Laterality Modality Head and Neck Ultrasound 12/26/2024 2:45 PM EDT Impressions 12/26/2024 2:45 PM EDT Unremarkable exam. -------- FINAL REPORT -------- Dictated By: Mary Lucia Dictated Date: 12/26/2024 14:45 ET Assigned Physician: Mary Lucia Reviewed and Electronically Signed By: Mary Lucia Signed Date: 12/26/2024 14:45 ET Workstation ID: [id number] Transcribed By: Self Edit Transcribed Date: 12/26/2024 [...] Signed Date: 12/26/2024 14:45 ET Workstation ID: [id number] Transcribed By: Self Edit Transcribed Date: 12/26/2024 14:45 ET us Nidia Moises [facility] US PROCEDURES Final Result documented in this encounter Visit Diagnoses Diagnosis Swelling of left parotid gland documented in this encounter Care Teams Ice Cream Chef Relationship Specialty Start Date End Date Naseem Huddleston PA [address] [place] [address] PCP - General Internal Medicine 11/26/20 documented as of this encounter
--- OUTSIDE RECORDS SUMMARY | 2024-12-29 09:57 | XMS_ITS | Clinical Summary ---
Author Organization [facility] [address] [facility] Address [address] [place] [address] Phone Care Team Providers Care Auto Rebuilder Name Role Phone Naseem Huddleston Primary Care Provider [phone] Allergies Active Allergy Reactions Criticality Noted Date Comments Lisinopril 01/09/2015 Facial swelling Penicillins Other 08/14/2011 Passed out Tyloxapol Itching Medium 04/25/2010 MAKES HIM HAVE CONSTIPATION SWEATING CAN'T SLEEP AND ITCHY Medications atorvastatin (LIPITOR) 40 mg tablet Take 1 tablet (40 mg total) by mouth 1 (one) time each day. 90 tablet 3 09/23/19 25 Active hydroCHLOROthiazid e (HYDRODIURIL) 25 mg tablet Take 1 tablet (25 mg total) by mouth 1 (one) time each day. 90 tablet 1 09/23/19 25 Active rivaroxaban (Xarelto) 15 mg tablet Take 1 tablet (15 mg total) by mouth 1 (one) time each day. Take with food. 90 tablet 3 09/23/19 25 Active albuterol HFA (PROAIR HFA ; PROVENTIL HFA ; VENTOLIN HFA) 90 mcg/actuation inhalerIndications :Dyspnea on exertion,Lumbar radiculitis,Anxiet y,Coronary artery disease due to lipid rich plaque,Chronic obstructive pulmonary disease with acute exacerbation (CMS/HCC V24, CMS/HCC V28),Depression, unspecified depression type,Hyperlipidemi a, unspecified hyperlipidemia type,Tobacco use disorder,Primary hypertension,PVD (peripheral vascular disease) ([facility] V24),Peripheral arterial occlusive disease ([facility] V24),Need for vaccination against Streptococcus pneumoniae Inhale 2 puffs by mouth every 4 (four) hours if needed for wheezing. 6.7 g 09/23/19 25 Active gabapentin (NEURONTIN) 300 mg capsule Take 1 capsule (300 mg total) by mouth 3 (three) times a day. at bedtime 270 capsule 09/23/19 25 Active traZODone (DESYREL) 50 mg tablet Take 1 tablet (50 mg total) by mouth at bedtime as needed for sleep. 30 tablet 09/23/19 25 Active famotidine (PEPCID) 20 mg tablet Take 1 tablet (20 mg total) by mouth 2 (two) times a day. 180 tablet 10/15/19 25 Active pantoprazole (PROTONIX) 40 mg EC tablet Take 1 tablet (40 mg total) by mouth 1 (one) time each day. Do not crush, chew, or split. 90 tablet 10/15/19 25 Active diclofenac (VOLTAREN) 1 % topical gel Apply 4 gram four times daily to affected joint 100 g 10/15/19 25 Active methocarbamoL (ROBAXIN) 750 mg tablet Take 1 tablet (750 mg total) by mouth 3 (three) times a day. 270 tablet 10/17/19 25 Active verapamil SR (CALAN-SR) 240 mg CR tablet Take 1 tablet (240 mg total) by mouth at bedtime. at bedtime. 90 tablet 3 11/17/19 25 Active aspirin 81 mg EC tablet TAKE 1 TABLET BY MOUTH EVERY DAY 90 tablet 1 11/18/19 25 Active doxepin (SINEquan) 10 mg capsule TAKE 1 CAPSULE BY MOUTH AT BEDTIME NEEDED (FOR INSOMNIA). 05/24/20 24 025 Discontin ued(Patie nt Discharge ) hydrocortisone (ANUSOL-HC) [address] 1 Suppository rectally 2 times daily. 03/22/20 24 025 Discontin ued(Patie nt Discharge ) polyethylene glycol (MIRALAX) 17 gram packet Take 1 Packet by mouth daily. 03/22/20 24 025 Discontin ued(Patie nt Discharge ) docusate sodium (COLACE) 100 mg capsule TAKE 1 CAPSULE BY MOUTH TWICE A DAY 180 capsule 3 09/21/19 25 025 Discontin ued(Patie nt Discharge ) senna (SENOKOT) 8.6 mg tablet Take 2 tablets (17.2 mg total) by mouth 2 (two) times a day if needed for constipation. 120 each 11 10/11/19 25 025 Discontin ued(Patie nt Discharge ) Active Problems Problem Noted Date Diagnosed Date Alcohol use 09/23/2024 Chronic low back pain 09/23/2024 Deep vein thrombosis (DVT) ([facility] V24, [facility] V28) 09/23/2024 Diverticula of intestine 09/23/2024 Hepatic steatosis 09/23/2024 Obesity with body mass index 30 or greater 09/23 Peripheral arterial occlusive disease ([facility] V 24) 09/23/2024 HTN (hypertension) 09/23/2024 Severe obesity (BMI 35.0-39. 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 Greenberg Encounters Date Type Department Care Team Description 12/26/2024 1:41 PM EDT - 12/26/2024 11:59 PM EDT Hospital Encounter Radiology Department - [address] [phone] Swelling of left parotid gland Discharge Disposition: Home or Self Care 12/26/2024 1:30 PM EDT Office Visit Adult Medicine [address] [phone] Nidia De Leon PA Swelling of left parotid gland (Primary Dx); Tobacco use disorder; Alcohol use 12/26/2024 Telephone Adult Medicine [address] [phone] Naseem Huddleston PA lump 10/21/2024 Telephone Adult Medicine [address] [phone] Naseem Huddleston PA Rectal Bleeding; Anal Itching 10/19/2024 Telephone Adult Medicine [address] [phone] Karley Caro [place] Prior Authorization (Methocarbamol 750mg) 10/11/2024 Telephone Adult Medicine [address] [phone] Naseem Huddleston PA 10/10/2024 Telephone Adult Medicine [address] [phone] Naseem Huddleston PA Prior Authorization (Lubiprostone) 10/07/2024 3:51 PM EST - 10/07/2024 11:59 PM EST Hospital Encounter Radiology Department - [address] [phone] Dyspnea on exertion; Lumbar radiculitis; Anxiety; Coronary artery disease due to lipid rich plaque; Chronic obstructive pulmonary disease with acute exacerbation (CMS/HCC V24, CMS/HCC V28); Depression, unspecified depression type; Hyperlipidemia, unspecified hyperlipidemia type; Tobacco use disorder; Primary hypertension; PVD (peripheral vascular disease) ([facility] V24); Peripheral arterial occlusive disease ([facility] V24); Need for vaccination against Streptococcus pneumoniae Discharge Disposition: Home or Self Care 10/07/2024 Telephone Adult Medicine [address] [phone] Naseem Huddleston PA Medication Problem 10/04/2024 Nurse Triage Adult [address] [phone] Naseem Huddleston PA Diarrhea from Last 3 Months Immunizations Name Administration Dates Next Due Influenza trivalent, with pr eservative (Fluzone; Afluria) 6mo and older 09/05/2012 [employer]/EZ-T[employer] SARS-CoV-2 COVID -19, vector-nr, rS-Ad26, preservative free [...] Surgery Date Site/Laterality Comments COLONOSCOPY 02/02/2012 PROCEDURE: GA COLONOSCOPY FLX DX W/COLLJ SPEC WHEN PFRMD; COMMENT: normal OTHER SURGICAL HISTORY 05/2015 PROCEDURE: ENDOVAS NON-CARDIAC ABL CATH; COMMENT: right leg, left arm PVD OTHER SURGICAL HISTORY PROCEDURE: GA BYPASS W/VEIN [id number]; COMMENT: dr. walsh COLONOSCOPY 05/22/2022 PROCEDURE: HISTORICAL COLONOSCOPY; COMMENT: tubular adenomas ESOPHAGOGASTRODUODENOSCOPY 05/22/2022 PROCEDURE: GA EGD TRANSORAL BIOPSY SINGLE/MULTIPLE; COMMENT: GERD LEG SURGERY Right PROCEDURE: HISTORICAL LEG SURGERY; COMMENT: right tib/fib fx orif Medical History Medical History Date Comments PVD (peripheral vascular dis ease) ([facility]/HCC V24) 12/23/2011 DX:PVD (peripheral vascular disease) ([facility]); COMMENT: History of ischemic left [...] Mass Index 38.18 12/26/2024 1:15 PM EDT Plan of Treatment Upcoming Encounters Date Type Department Care Team (Late st Contact Info) Description 03/27/2025 8:00 AM EDT Office Visit Adult Medicine [facility] [address] [place] [address] Naseem Huddleston PA [address] [place] [address] Health Maintenance Due Date Last Done Comments Zoster Vaccines (1 of 2) 2011 RSV Immunization Adult Patients (1 - Risk 60-74 years 1-dose series) 2021 HIV Screening 08/02/2022 Social Influencers of Health Screening 08/02/2022 COVID-19 Vaccine ( season) 2024 05/07/2024, 11/29/2023, 08/11/2022, Additional history exists Influenza Vaccine (Season Ended) 2025 09/05/2012 Lung Cancer Screening (Low Dose CT) 05/02/2025 [...] age to complete this topic Meningococcal B Vaccine Aged Out No l onger eligible based on patient's age to complete [...] PM EDT Swelling of left parotid gland MR SHOULDER WO CONTRAST LEFT Routine 10/07/2024 4:45 PM EST Dyspnea on exertion Lumbar radiculitis Anxiety Coronary artery disease due to lipid rich plaque Chronic obstructive pulmonary disease with acute exacerbation (CMS/HCC V24, CMS/HCC V28) Depression, unspecified depression type Hyperlipidemia, unspecified hyperlipidemia type Tobacco use disorder Primary hypertension PVD (peripheral vascular disease) (CMS/HCC V24) Peripheral arterial occlusive disease (CMS/HCC V24) Need for vaccination against Streptococcus pneumoniae COMPREHENSIVE METABOLIC PANEL Routine 07/25/2024 1:43 PM EST Hyperlipemia LIPID PANEL WITH REFLEX TO DIRECT LDL Routine 07/25/2024 1:43 PM EST Hyperlipemia HM DEPRESSION SCREENING Routine 05/24/2024 CT LUNG SCREENING LOW DOSE Routine 05/02/2024 10:26 AM EDT Encounter for screening for malignant neoplasm of respiratory organs HM COLONOSCOPY Routine 05/22/2022 HEPATITIS C SCREENING Routine 05/24/2019 from Last 3 Months or Most Recently Relevant to Health Maintenance Results * US Head Neck Soft Tissue (12/26/2024 2:15 PM EDT) Anatomical Region Laterality Modality Head and Neck Ultrasound 12/26/2024 2:45 PM EDT Impressions 12/26/2024 2:45 PM EDT Unremarkable exam. -------- FINAL REPORT -------- Dictated By: Mary Lucia Dictated Date: 12/26/2024 14:45 ET Assigned Physician: Mary Lucia Reviewed and Electronically Signed By: Mary Lucia Signed Date: 12/26/2024 14:45 ET Workstation ID: [id number] Transcribed By: Self Edit Transcribed Date: 12/26/2024 [...] Signed Date: 12/26/2024 14:45 ET Workstation ID: [id number] Transcribed By: Self Edit Transcribed Date: 12/26/2024 14:45 ET us Nidia Moises [facility] US PROCEDURES Final Result * MR Shoulder wo Contrast Left (10/07/2024 [...] Signed Date: 10/07/2024 18:03 ET Workstation ID: [id number] Transcribed By: Self Edit Transcribed Date: 10/07/2024 [...] Signed Date: 10/07/2024 18:03 ET Workstation ID: [id number] Transcribed By: Self Edit Transcribed Date: 10/07/2024 17:51 ET Naseem [facility] MRI PROCEDURES Final Result * Lipid panel with reflex to direct LDL (07/25/2024 1:43 PM EST) Cholesterol 96 0 - 200 mg/dL LAB CHEMISTRY METHOD 07/25/2024 4:54 PM [facility] Triglycerides 108 0 - 150 mg/dL LAB CHEMISTRY METHOD 07/25/2024 4:54 PM [facility] HDL 48 >=40 mg/dL LAB CHEMISTRY METHOD 07/25/2024 4:54 PM [facility] LDL Calculated 26 0 - 100 mg/dL LAB CHEMISTRY METHOD 07/25/2024 4:54 PM [facility] VLDL Cholesterol Shaun 21.6 mg/dL LAB CHEMISTRY METHOD 07/25/2024 4:54 PM [facility] Non HDL Chol. (LDL+VLDL) 48 <145 mg/dL LAB CHEMISTRY METHOD 07/25/2024 4:54 PM [facility] Chol/HDL Ratio 2.0 0.0 - 4.4 LAB CHEMISTRY METHOD 07/25/2024 4:54 PM [facility] Blood Venous blood specimen / Unknown Venipuncture / Unknown 07/25/2024 1:43 PM EST 07/25/2024 1:43 PM EST us Naseem [facility] LAB BLOOD ORDERABLES Linda l Result [facility] [address] [place] [address], * (ABNORMAL) Comprehensive metabolic panel (07/25/2024 1:43 PM EST) Pathologist [facility] Sodium 138 133 - 145 mmol/L LAB CHEMISTRY METHOD 07/25/2024 4:54 PM [facility] Potassium 3.5 3.5 - 5.5 mmol/L LAB CHEMISTRY METHOD 07/25/2024 4:54 PM [facility] Chloride 102 96 - 110 mmol/L LAB CHEMISTRY METHOD 07/25/2024 4:54 PM [facility] CO2 29 21 - 32 mmol/L LAB CHEMISTRY METHOD 07/25/2024 4:54 PM [facility] Anion Gap 7 3 - 11 LAB CHEMISTRY METHOD 07/25/2024 4:54 PM [facility] Glucose 111(H) 70 - 100 mg/dL LAB CHEMISTRY METHOD 07/25/2024 4:54 PM [facility] BUN 10 5 - 25 mg/dL LAB CHEMISTRY METHOD 07/25/2024 4:54 PM [facility] Creatinine 1.09 0.70 - 1.30 mg/dL LAB CHEMISTRY METHOD 07/25/2024 4:54 PM [facility] eGFR 76 >=60 mL/min/1. 73m2 LAB CHEMISTRY METHOD 07/25/2024 4:54 PM [facility] Comment:Calculation based on the??Chronic Kidney Disease Epidemiology Collaboration (CKD-EPI) equation refit??without adjustment for race. BUN/Creatinine Ratio 9.2 LAB CHEMISTRY METHOD 07/25/2024 4:54 PM [facility] Calcium 9.6 8.5 - 10.5 mg/dL LAB CHEMISTRY METHOD 07/25/2024 4:54 PM [facility] AST (SGOT) 17 10 - 42 unit/L LAB CHEMISTRY METHOD 07/25/2024 4:54 PM [facility] ALT (SGPT) 34 10 - 60 unit/L LAB CHEMISTRY METHOD 07/25/2024 4:54 PM [facility] Alkaline Phosphatase 98 42 - 121 unit/L LAB CHEMISTRY METHOD 07/25/2024 4:54 PM [facility] Total Protein 7.0 6.0 - 8.0 g/dL LAB CHEMISTRY METHOD 07/25/2024 4:54 PM [facility] Albumin 3.9 3.2 - 5.0 g/dL LAB CHEMISTRY METHOD 07/25/2024 4:54 PM EST [facility] Total Bilirubin 1.3 0.0 - 1.4 mg/dL LAB CHEMISTRY METHOD 07/25/2024 4:54 PM EST [facility] Blood Venous blood specimen / Unknown Venipuncture / Unknown 07/25/2024 1:43 PM EST 07/25/2024 1:43 PM EST Naseem [facility] BLOOD ORDERABLES Linda l Result [facility] [address] [place] [address], * Depression Screening (05/24/2024) Depression Screening abstracted Historical Provider HEALTH MAINTENANCE Final Result * CT LUNG SCREENING LOW DOSE (05/02/2024 10:26 AM EDT) Anatomical Region Laterality Modality Computed Tomogra phy 05/02/2024 7:28 AM EDT Narrative 05/02/2024 10:26 AM EDT [facility] Diagnostic Imaging Department [address] [place] [address] Patient: ??NASH AQUINO ?/Age/Sex: 1960 - 64 - M Unit#: ??[id number] ? Location/Status: ??SPDICATLS/REG CLI ? Mnemonic/Ordering Site: ??CTLUNGLD/SPCT Ordering Physician: ??GIGI LAWSON MD CT Lung Screening Low Dose - 05/02/24 - 0738 Report Status:Signed Indication: Greater than 20 total [...] Procedure Note Michelle Pete MD - 06/08/2024 [facility] Diagnostic Imaging Department [address] [place] [id number] Patient: NASH AQUINO Terence /Age/Sex: 1960 - 64 - M Unit#: [id number] Location/Status: SPDICATLS/REG CLI Mnemonic/Ordering Site: [facility] [place] Ordering Physician: GIGI LAWSON MD CT Lung Screening Low Dose - 05/02/24 - 0738 Report Status:Signed Indication: Greater than 20 total [...] Date/Time: 05/02/24 1010 Sign date/Time: 05/02/24 1026 Result [facility] Gigi Lawson MD IMG CT PROCEDURES Final Result * Colonoscopy (05/22/2022) Colonoscopy abstracted, no interpretation Anatomical Region Laterality Modality Other Result [facility] Historical Provider HEALTH MAINTENANCE Final Result * Hepatitis C Screening (05/24/2019) Hepatitis C Screening abstracted Historical Provider HEALTH MAINTENANCE Final Result from Last 3 Months or Most Recently Relevant to Health Maintenance Insurance [facility] [employer] Care Teams Auto Rebuilder Relationship Specialty Start Date End Date Naseem Huddleston PA [address] [place] [address] PCP - General Internal Medicine 11/26/20
--- OUTSIDE RECORDS SUMMARY | 2024-12-29 09:57 | XMS_ITS | Encounter Summary ---
Author Organization [facility] Address [address] [place] [address] Care Team Providers Care Territory Business Manager Name Role Phone Naseem Huddleston Primary Care Provider [phone] Reason for Visit * Reason Onset Date Comments Shoulder Pain 07/25/2024 Left Shoulder Encounter Details Date Type Department Care Team (Late st Contact Info) Description 07/25/2024 Nurse Triage Adult Medicine [address] [phone] Naseem Huddleston PA [address] [place] [phone] Shoulder Pain (Left Shoulder ) Social History [...] traveled recently to another state outside of [place], [place], [place], [place], [place], [place], [place]? no [...] of accident/Injury: No If yes, gather 3rd alliance party insurance information Third Green Party Information: not applicable PCP: MARKEL Fonseca Payor: / No coverage found. documented in this encounter Plan of Treatment Upcoming Encounters Date Type Department Care Team (Late st Contact Info) Description 03/27/2025 8:00 AM EDT Office Visit Adult Medicine [address] [phone] Naseem Huddleston PA [address] [place] [address] documented as of this encounter Visit Diagnoses Not on filedocumented in this encounter Care Teams Territory Business Manager Relationship Specialty Start Date End Date Naseem Huddleston PA [address] [place] [phone] PCP - General Internal Medicine 11/26/20 documented as of this encounter
--- OUTSIDE RECORDS SUMMARY | 2024-12-29 09:57 | XMS_ITS | Encounter Summary ---
Author Organization [facility] Address [address] [place] [address] Care Team Providers Care Registered Nurse Maternal Child Name Role Phone Naseem Huddleston Primary Care Provider [phone] Reason for Visit * Reason Onset Date Comments lump 12/26/2024 Encounter Details Date Type Department Care Team (Late st Contact Info) Description 12/26/2024 Telephone Adult Medicine [facility] [address] [place] [address] Naseem Huddleston PA [address] [place], [place] [phone] lump Social History Tobacco Use Types Packs/Day Years [...] Progress Notes * Laurie Tolbert RN - 12/26/2024 10:36 AM EDT Spoke with the pt Sharp discomfort when swallowing Yesterday noted a lump below/under the chin Does not hurt to touch the area When ever he eats anything he feels the area gets larger and then will go down over time. Scheduled eval for 12/26 at 1:15 with care team * Mercedez Hsu - 12/26/2024 9:41 AM EDT Patient call requires triage: Symptoms patient is presenting: c/o lump left side of face below jaw line How long has patient had these symptoms?: 1 day For ALL patients calling to schedule any appointment (routine, sick visit, follow up, consult, etc.) in the outpatient setting please ask the following questions: Do you have fever of higher than 101, sore throat with difficulty swallowing or severe shortness ofbreath? no If YES to any of these above symptoms, send a message to triage and do not book. Red dot. If no, an audio or video visit should be booked. Have you had close contact with someone with Coronavirus in the last 14 days? no Have you traveled abroad? no Have you traveled recently to another state outside of [place], [place], [place], [place], [place], [place], [place]? no o If yes, did you quarantine [...] of accident/Injury: No If yes, gather 3rd green party insurance information Third Constitution Party Information: not applicable PCP: MARKEL Fonseca Payor: [facility] [facility] / Plan: [facility] MEDICAID / Product Type: *No Product type* / documented in this encounter Plan of Treatment Upcoming Encounters Date Type Department Care Team (Late st Contact Info) Description 03/27/2025 8:00 AM EDT Office Visit Adult Medicine [facility] [address] [place] [address] Naseem Huddleston PA [address] [place] [address] documented as of this encounter Goals Goal Patient Goal Type Associated Problems Recent Progress Patient-Stated? Author feel better General Yes Darvin Barone PT STG General No Darvin Barone PT Note: Pt will be instructed in and provided with HEP. documented as of this encounter Visit Diagnoses Not on filedocumented in this encounter Care Teams Registered Nurse Maternal Child Relationship Specialty Start Date End Date Naseem Huddleston PA [address] [place] [address] PCP - General Internal Medicine 11/26/20 documented as of this encounter
--- OUTSIDE RECORDS SUMMARY | 2024-12-29 09:57 | XMS_ITS | Clinical Summary ---
Author Organization [facility] Address [address] [place] [address] Care Team Providers Care Luggage Attendant Name Role Phone Naseem Huddleston PA-C Primary Care Provider Allergies Active Allergy Reactions Criticality Noted Date Comments Lisinopril 01/09/2015 Facial swelling Penicillins Other (See Comments) 08/14/2011 Passed out Tyloxapol Itching Medium 04/25/2010 MAKES HIM HAVE CONSTIPATION SWEATING CAN'T SLEEP AND ITCHY Medications Medication Sig Dispensed Refills Start Date End Date Status Aspirin Buf,LjMvcw-[id number], 81 MG TABS Take 81 mg by [...] age to complete this topic Care Teams Luggage Attendant Relationship Specialty Start Date End Date Naseem Huddleston PA-C PCP - General Medical Services 03/19/21
== END 2024-12-29 10:05 | disposition home or self-care (01) ==
LOC: HO.HOS 09:20
PROVIDERS: PCP Physician Assistant Medical; Visit Provider Physical Medicine & Rehabilitation
DX: M54.16 Radiculopathy, lumbar region (principal)
CPT/HCPCS: 99204; G2211

== ENCOUNTER → 2024-12-29 09:20 | Outpatient (BNVA) | payer OTHER, SELFPAY | PROVIDERS: PCP Physician Assistant Medical; Visit Provider Physical Medicine & Rehabilitation | DX: M54.16 Radiculopathy, lumbar region (principal) | CPT/HCPCS: 99202 ==

== ENCOUNTER 2025-03-16 08:54 | Outpatient (AMB) | payer OTHER, SELFPAY ==
--- NOTE | 2025-03-16 08:58 | A.OFFVIS_ITS ---
Vital Signs 03/16/25 09:07 Height 5 ft 7 in Weight 244 lb BMI 38.2 Intake Visit Reasons: OV-Low back pain Intake Note: Nash is a 64 year old male who presents today for a follow up for lower back pain. At last visit on 12/29/24 we discussed referring him to physical therapy, pursue [facility]. After PT, we will evaluate if we should repeat lumbar MRI. Patient states that he stopped physical therapy at the first visit due to the pain being so intense. Patient would like to discuss injection options and stressed that he did not want to continue physical therapy. At today's visit he states that the lower back pain is still radiating, mild numbness down to the left buttocks. He added that daily activities are a challenge due to the pain. Allergies acetaminophen (From TYLOX) Allergy (Unknown, Verified 03/16/25 09:05) NAUSEA & VOMITING Penicillins (PENICILLINS) Allergy (Unknown, Verified 03/16/25 09:05) UNKNOWN From TYLOX Allergy (Unknown, Uncoded 12/29/24 09:38) NAUSEA & VOMITING Medication List - Last Reconciled 03/16/25 by Aury Tena MD albuterol 90 mcg/actuation mcg inhalation aspirin mg PO DAILY atorvastatin mg PO DAILY famotidine mg PO DAILY gabapentin 100 mg PO DAILY hydrochlorothiazide mg PO DAILY methocarbamol mg PO 3XD pantoprazole mg PO DAILY trazodone mg PO DAILY PRN verapamil ER mg PO DAILY HPI Comments Details: I have known Nash from practice at [place] many years ago. Previously treated him for different musculoskeletal complaints such as shoulder pain, elbow pain, neck pain, back pain. He wants to transfer care under me for more comprehensive physiatry care. Despite complaints of neck pain and shoulder pain, he would like to concentrate on lower back pain today. Last injection by Dr. Christian was probably in 2022. Patient remembers presenting for left-sided back pain (which is usually his chronic side but he complained of right-sided pain on the day of injection, so TFEs were done in the right side instead.) No other back injections since then. Patient continues to have lower back pain that always radiates down to the left buttocks and left posterior thigh. He has chronic numbness in both legs, blamed on vascular disease. Last procedure under vascular 09/2019. He also has history of tib-fib fracture in 2020. He has not had physical therapy for lower back pain. He did have PT recently for left shoulder. He was recently seen by Libby for left shoulder, received injection 11/24/2024. Last lumbar MRI probably was before 2019. He has been prescribed gabapentin by his primary care but he only takes this as needed. Takes methocarbamol as needed as well. He is on Xarelto. He did go to PT once, but after the first visit, he thinks he popped his neck again and that was too much for him. He cancelled rest of his PT after. Neck pain is left upper and shoulder area/biceps. He did have xray done at PCP. She did have left shoulder injection 11/24 by Libby JEAN BAPTISTE. He also did have injections [facility]. Lower back pain [facility] Medical History (Updated 12/29/24 @ 10:00 by Aury Tena MD) Chronic back pain Social History Alcohol intake: former Cigarette Packs Per Day: 1 Current occupational status: disabled Physical Exam Vital Signs: BMI result Body Mass Index 38.2 Constitutional: Patient appears to be in no acute distress, well nourished and well developed. Patient was appropriately conversant and oriented. Good historian. MSK: No specific abnormalities found on inspection of the spine and all extremities. Tends to lean towards the right. No focal tenderness over SI joint or GT. No focal tenderness over paraspinals or quadratus lumborum. Positive left Mirza sign. Positive left crepitus and sensation of popping with abduction and internal rotation. Some tightness over left upper trapezius. Neurological: Neurologic examination of the upper and lower extremities was nonfocal with intact sensation, muscle stretch reflexes and without focal motor deficits . Cesar?s negative bilaterally. Babinski was down going bilaterally. Clonus was negative. Gait is non-antalgic without loss of balance. Results Reviewed Results Reviewed: Ordering Physician: Libby Michael PA-C Date of Service: 11/24/24 Procedure(s): XR shoulder LT min 2V Accession Number(s): [id number] cc: Libby Michael PA-C~ EXAMINATION: XR SHOULDER 2 OR MORE VIEWS LEFT HISTORY: M25.519 - Pain in unspecified shoulder COMPARISON: There are no prior studies available for comparison. FINDINGS: Three views of the left shoulder are submitted. Osseous mineralization is normal. There is no fracture or dislocation. The glenohumeral and acromioclavicular joint spaces are preserved. The soft tissues are unremarkable. XR/XR shoulder LT min 2V IMPRESSION: Unremarkable examination of the left shoulder. Electronically signed by: Hany Torres MD 11/25/2024 08:25 AM EDT RP Assessment & Plan Assessment & Plan (1) Left lumbar radiculopathy: Code(s): M54.16 - Radiculopathy, lumbar region Category: Medical (2) Left shoulder tendinitis: Code(s): M77.8 - Other enthesopathies, not elsewhere classified Category: Medical Plan 1. Chronic lower back pain, radiating to left leg. Patient had undergone adequate conservative management including [PT] without improvement of condition. It would be reasonable to obtain further imaging such as MRI. An MRI would help rule out any serious condition, guide treatment and assess prognosis for recovery. Specifically ruling out left L5-S1 disc herniation. 2. As for left shoulder pain, request that he sees orthopedics again. He has crepitus and sensation of popping with abduction and internal rotation. 3. Chronic neck pain. We will address lower back pain and left shoulder pain (with ortho) 1st but I can evaluate him further in the future for neck pain. Assessment and plan discussed with patient, and patient was agreeable. All questions were answered thoroughly. Follow up after lumbar MRI. Aury Tena MD, BILL Board Certified, [employer] and Rehabilitation (ABPMR) Board Certified, [employer] Electrodiagnostic [employer] (ABEM) Coding Level of Care Code Est Pt Level 4 (21316) Diagnoses Left lumbar radiculopathy M54.16 Left shoulder tendinitis M77.8
[2025-03-16 09:07] VITALS: BMI 38.2
--- OUTSIDE RECORDS SUMMARY | 2025-03-16 09:23 | XMS_ITS | Encounter Summary ---
Author Organization [facility] Address [address] [place] [address] Care Team Providers Care Concrete Pipe Machine Operator Name Role Phone Naseem Huddleston Primary Care Provider [phone] Reason for Visit * Reason Onset Date Comments Shoulder Pain 07/25/2024 Left Shoulder Encounter Details Date Type Department Care Team (Late st Contact Info) Description 07/25/2024 Nurse Triage Adult Medicine [facility] [address] [place] [phone] Naseem Huddleston PA [address] [place] [address] Shoulder Pain (Left Shoulder ) Social History Tobacco Use Types Packs/Day Years Used Date Smoking Tobacco: Every Day Cigarettes 1 50.9 Started: 04/07/1974 Smokeless Tobacco: Never Alcohol Use Standard Drinks/Week Comments Yes 0 (1 standard drink = 0.6 oz pur e alcohol) Sex and Gender Information Value Date Recorded Sex Assigned at Male 01/12/2025 3:29 PM EDT Legal Sex Male 4:15 PM EST Gender Identity Male 01/12/2025 3:29 PM EDT Sexual Orientation Straight 01/12/2025 3: 29 PM EDT documented as of this encounter Progress Notes [...] traveled recently to another state outside of [place], [place], [place], [place], [place], [place], [place]? no [...] of accident/Injury: No If yes, gather 3rd democrat insurance information Third Libertarian Information: not applicable PCP: MARKEL Fonseca Payor: / No coverage found. documented in this encounter Plan of Treatment Upcoming Encounters Date Type Department Care Team (Late st Contact Info) Description 03/27/2025 8:00 AM EDT Office Visit Adult Medicine [facility] [address] [place] [phone] Naseem Huddleston PA [address] [place], [place] 04/25/2025 10:30 AM EDT Consult General Surgery - [place] [address] [facility] [address] [place] [phone] Katina Haile MD 175 [facility] [address] [place] [address] 04/26/2025 2:20 PM EDT Office Visit Gastroenterology - [facility] [address] [facility] [address] [place] [phone] Adele Seals PA 175 [facility] [address] [place] [address] documented as of this encounter Visit Diagnoses Not on filedocumented in this encounter Care Teams Concrete Pipe Machine Operator Relationship Specialty Start Date End Date Naseem Huddleston PA [address] [place] [address] PCP - General Internal Medicine 4/5/21 documented as of this encounter
--- OUTSIDE RECORDS SUMMARY | 2025-03-16 09:23 | XMS_ITS | Clinical Summary ---
Author Organization [facility] Address [address] [place] [address] Care Team Providers Care Closet Builder Name Role Phone Naseem Huddleston PA-C Primary Care Provider Allergies Active Allergy Reactions Criticality Noted Date Comments Lisinopril 01/09/2015 Facial swelling Penicillins Other (See Comments) 08/14/2011 Passed out Tyloxapol Itching Medium 04/25/2010 MAKES HIM HAVE CONSTIPATION SWEATING CAN'T SLEEP AND ITCHY Medications Medication Sig Dispensed Refills Start Date End Date Status Aspirin Buf,[id number]-[id number]-RcB, 81 MG TABS Take 81 mg by [...] 84 03/19/2021 11:08 AM EDT Temperature 36.4 C (97.5 F) 03/19/2021 11:08 AM EDT Respiratory Rate - - Oxygen Saturation 96% [...] 5 season) 2024 11/19/2020 Influenza Vaccine (#1) 2025 09/05/2012 RSV Adult > 60+ Yrs or Pregn ant (1 - 1-dose 75+ series) 2036 Hepatitis B Vaccines Aged Out No long er eligible based on patient's age to complete this topic RSV Ped < 20 months Aged Out No longe r eligible based on patient's age to complete this topic Care Teams Closet Builder Relationship Specialty Start Date End Date Naseem Huddleston PA-C PCP - General Medical Services 03/19/21
--- OUTSIDE RECORDS SUMMARY | 2025-03-16 09:23 | XMS_ITS ---
Author Name [facility] Organization Unknown Care Team Organization Name Specialty Phone Email Start Date End Da daphney [facility] Naseem Huddleston Primary Care 07/01/2022
== END 2025-03-16 09:33 | disposition home or self-care (01) ==
LOC: HO.HOS 08:55
PROVIDERS: PCP Physician Assistant Medical; Visit Provider Physical Medicine & Rehabilitation
DX: M54.16 Radiculopathy, lumbar region (principal); M77.8 Other enthesopathies, not elsewhere classified
CPT/HCPCS: 99214

== ENCOUNTER → 2025-03-16 08:54 | Outpatient (BNVA) | payer OTHER, SELFPAY | PROVIDERS: PCP Physician Assistant Medical; Visit Provider Physical Medicine & Rehabilitation | DX: M54.16 Radiculopathy, lumbar region (principal); M77.8 Other enthesopathies, not elsewhere classified | CPT/HCPCS: 99212 ==

== ENCOUNTER 2025-05-12 08:19 | Outpatient (AMB) | payer OTHER, SELFPAY ==
--- NOTE | 2025-05-12 08:27 | A.OFFVIS_ITS ---
Intake Visit Reasons: OV- Left Shoulder pain Intake Note: Nash is a 65 year old right hand dominant male who presents today for a follow of his left shoulder pain, last injection 11/24/24. Patient states his last injection gave him relief until he did physical therapy. He states that his pain is constant and it is making his pain down his arm and it makes his left thumb numb. Allergies acetaminophen (From TYLOX) Allergy (Unknown, Verified 05/12/25 08:30) NAUSEA & VOMITING Penicillins (PENICILLINS) Allergy (Unknown, Verified 05/12/25 08:30) UNKNOWN From TYLOX Allergy (Unknown, Uncoded 12/29/24 09:38) NAUSEA & VOMITING HPI HPI OV- Left Shoulder pain: Details: Mr. Aquino is a 64-year-old right-hand dominant male who presents to the office today for follow up of left shoulder pain. Patient reports that he had a CT done in the past but denies an MRI within the past year. He reports that his last appointment on 11/24/2024 he received a cortisone injection and this gave him about 1 month of relief. He is looking to repeat the cortisone injection and also continue exploring the severe left shoulder pain that he is experiencing. He was also attending physical therapy and reports that physical therapy made his shoulder pain worse. He was unable to continue. He is looking to see with the next step in the treatment plan will be. [facility] Medical History (Updated 12/29/24 @ 10:00 by Aury Tena MD) Chronic back pain Social History Alcohol intake: former Cigarette Packs Per Day: 1 Current occupational status: disabled Review of Systems Const All systems reviewed & are unremarkable except as noted in HPI and below Physical Exam Const General: cooperative, healthy appearing and no acute distress Resp Effort & Inspection: normal respiratory effort and able to speak in complete sentences Cardio Rate: regular rate Peripheral pulses: Peripheral pulses 2+ throughout Skin Lesions: no lesions Rashes: no rashes Extrem Other: Left shoulder: Full shoulder ROM in all planes with pain. Positive cross-body reach. Negative empty can. Negative drop arm. Reproduction pain when rotating his head to the left. Assessment & Plan Assessment & Plan (1) Left shoulder tendinitis: Code(s): M77.8 - Other enthesopathies, not elsewhere classified Category: Medical (2) Bursitis of left shoulder: Code(s): M75.52 - Bursitis of left shoulder Category: Medical Plan Mr. Aquino is a 64-year-old right-hand dominant male who presents to the office today for follow up of left shoulder pain. Patient reports that he had a CT done in the past but denies an MRI within the past year. He reports that his last appointment on 11/24/2024 he received a cortisone injection and this gave him about 1 month of relief. He is looking to repeat the cortisone injection and also continue exploring the severe left shoulder pain that he is experiencing. He was also attending physical therapy and reports that physical therapy made his shoulder pain worse. He was unable to continue. He is looking to see with the next step in the treatment plan will be. While the office today, an MRI has been order to further evaluate integrity of the left shoulder and surrounding structures. I feel this is the necessary next step as patient has tried and failed physical therapy and cortisone injections. Additionally, in order to give the patient some form of relief we have repeated the injection while in the office today. The patient was offered a cortisone injection in left shoulder. The patient was explained the risks, benefits, and alternatives to receiving this injection. After receiving consent for the injection, the patient had the procedure done while in the office today. The patient tolerated the procedure well with no complications. Follow-up will be after the MRI is obtained, or sooner if needed Orders: Orders MR shoulder LT wo con Today M75.52 - Bursitis of left shoulder, M77.8 - Other enthesopathies, not elsewhere classified Coding Level of Care Code Est Pt Level 3 (89789) Diagnoses Left shoulder tendinitis M77.8 Bursitis of left shoulder M75.52
--- OUTSIDE RECORDS SUMMARY | 2025-05-12 08:49 | XMS_ITS | Clinical Summary ---
Author Organization [address] Building Address [address] [place], [place] Phone Care Team Providers Care Underwear Cutter Name Role Phone Naseem Huddleston Primary Care Provider [phone] Allergies Active Allergy Reactions Criticality Noted Date Comments Lisinopril 01/09/2015 Facial swelling Penicillins Other 08/14/2011 Passed out Tyloxapol Itching Medium 04/25/2010 MAKES HIM HAVE CONSTIPATION SWEATING CAN'T SLEEP AND ITCHY Medications atorvastatin (LIPITOR) 40 mg tablet Take 1 tablet (40 mg total) by mouth 1 (one) time each day. 90 tablet 3 025 Active rivaroxaban (Xarelto) 15 mg tablet Take 1 tablet (15 mg total) by mouth 1 (one) time each day. Take with food. 90 tablet 3 025 Active albuterol HFA (PROAIR HFA ; PROVENTIL HFA ; VENTOLIN HFA) 90 mcg/actuation inhalerIndication s:Dyspnea on exertion,Lumbar radiculitis,Anxie ty,Coronary artery disease due to lipid rich plaque,Chronic obstructive pulmonary disease with acute exacerbation (CMS/HCC V24, CMS/HCC V28),Depression, unspecified depression type,Hyperlipidem ia, unspecified hyperlipidemia type,Tobacco use disorder,Primary hypertension,PVD (peripheral vascular disease) (CMS/HCC V24),Peripheral arterial occlusive disease (CMS/HCC V24),Need for vaccination against Streptococcus pneumoniae Inhale 2 puffs by mouth every 4 (four) hours if needed for wheezing. 6.7 g 11 025 Active gabapentin (NEURONTIN) 300 mg capsule Take 1 capsule (300 mg total) by mouth 3 (three) times a day. at bedtime 270 capsule 3 Active traZODone (DESYREL) 50 mg tablet Take 1 tablet (50 mg total) by mouth at bedtime as needed for sleep. 30 tablet 11 Active famotidine (PEPCID) 20 mg tablet Take 1 tablet (20 mg total) by mouth 2 (two) times a day. 180 tablet 3 Active pantoprazole (PROTONIX) 40 mg EC tablet Take 1 tablet (40 mg total) by mouth 1 (one) time each day. Do not crush, chew, or split. 90 tablet 3 Active diclofenac (VOLTAREN) 1 % topical gel Apply 4 gram four times daily to affected joint 100 g Active methocarbamoL (ROBAXIN) 750 mg tablet Take 1 tablet (750 mg total) by mouth 3 (three) times a day. 270 tablet 3 Active verapamil SR (CALAN-SR) 240 mg CR tablet Take 1 tablet (240 mg total) by mouth at bedtime. at bedtime. 90 tablet 3 Active hydroCHLOROthiazi de (HYDRODIURIL) 25 mg tablet TAKE 1 TABLET BY MOUTH 1 TIME EACH DAY. 90 tablet 1 Active dilTIAZem 20 mg/g in white petrolatum Apply 1 Application topically 3 (three) times a day. Apply a pea sized amount to the anal verge x 8 weeks. Disp: 1 months supply with 1 refill. 1 each 2 Active aspirin 81 mg EC tablet TAKE 1 TABLET BY MOUTH EVERY DAY 90 tablet 1 Active aspirin 81 mg EC tablet TAKE 1 TABLET BY MOUTH EVERY DAY 90 tablet 1 025 2024 Discontinued linaCLOtide (Linzess) 72 mcg capsule Take 1 capsule (72 mcg total) by mouth 1 (one) time each day. 30 capsule 11 025 2024 Discontinued Active Problems Problem Noted Date Diagnosed Date BRBPR (bright red blood per rectum) 04/25/2025 Internal hemorrhoids with complication Alcohol use 09/23/2024 Chronic low back pain 09/23/2024 Deep vein thrombosis (DVT) ([facility] V24, [facility] V28) 09/23/2024 Diverticula of intestine 09/23/2024 Hepatic steatosis 09/23/2024 Obesity with body mass index 30 or greater 09/23 Peripheral arterial occlusive disease ([facility] V 24) 09/23/2024 HTN (hypertension) 09/23/2024 Severe obesity (BMI 35.0-39. 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 Greenberg Encounters Date Type Department Care Team Description 04/27/2025 Telephone General Surgery - [place] [facility] [address] [place] [phone] Katina Haile MD 04/26/2025 Telephone General Surgery - [place] [facility] [address] [place] [phone] Naida De La Rosa MA 04/25/2025 10:30 AM EDT Consult General Surgery - [place] [facility] [address] [place] [phone] Katina Haile MD Internal hemorrhoids with complication (Primary Dx); BRBPR (bright red blood per rectum); Anal fissure 04/11/2025 Telephone Lung Screening Program - [place] [facility] [address] [place] [phone] Niki Barnes MA 03/27/2025 8:00 AM EDT Office Visit Adult Medicine [address] [phone] Naseem Huddleston PA Coronary artery disease due to lipid rich plaque (Primary Dx); Chronic obstructive pulmonary disease with acute exacerbation ([facility] V24, [facility] V28); Hyperlipidemia, unspecified hyperlipidemia type; Anxiety; Lumbar radiculitis; Primary hypertension; Severe obesity (BMI 35.0-39.9) with comorbidity ([facility] V24, [facility] V28); PVD (peripheral vascular disease) ([facility] V24); Gastroesophageal reflux disease without esophagitis 03/13/2025 Telephone Gastroenterology - [place] [facility] [address] [place] [phone] Adele Seals PA 03/02/2025 7:47 AM EDT Anesthesia Event [facility] [address] [place] [phone] Marleni Finley MD Steele, Matthew G, COMMUNITY RECREATION PROGRAMMER 03/02/2025 6:47 AM EDT - 03/02/2025 11:59 PM EDT Hospital Encounter [facility] [address] [place] [phone] Arabella Erickson MD Steele, Matthew G, Marleni Kilgore MD BRBPR (bright red blood per rectum); Tubular adenoma of colon Discharge Disposition: Home or Self Care from Last 3 Months Immunizations Name Administration Dates Next Due Influenza trivalent, with pr eservative (Fluzone; Afluria) 6mo and older 09/05/2012 Idibon/Duolingo SARS-CoV-2 COVID -19, vector-nr, [id number], preservative free [...] Surgery Date Site/Laterality Comments COLONOSCOPY 02/02/2012 PROCEDURE: SC COLONOSCOPY FLX DX W/COLLJ SPEC WHEN PFRMD; COMMENT: normal OTHER SURGICAL HISTORY 05/2015 PROCEDURE: ENDOVAS NON-CARDIAC ABL CATH; COMMENT: right leg, left arm PVD OTHER SURGICAL HISTORY PROCEDURE: SC BYPASS W/VEIN [id number] ; COMMENT: dr. walsh COLONOSCOPY 05/22/2022 PROCEDURE: HISTORICAL COLONOSCOPY; COMMENT: tubular adenomas ESOPHAGOGASTRODUODENOSCOPY 05/22/2022 PROCEDURE: SC EGD TRANSORAL BIOPSY SINGLE/MULTIPLE; COMMENT: GERD LEG SURGERY Right PROCEDURE: HISTORICAL LEG SURGERY; COMMENT: right tib/fib fx orif ORIF TIBIA FRACTURE 08/24/2020 - 08/23/2021 Right MENISCECTOMY Medical History Medical History Date Comments PVD (peripheral vascular dis ease) ([facility] V24) 12/23/2011 DX:PVD (peripheral vascular disease) (HCC); COMMENT: History of ischemic left hand , [...] Date Smoking Tobacco: Every Day Cigarettes 1 51.1 Started: 04/07/1974 Smokeless Tobacco: Never Tobacco Cessation:Ready to Q uit: Not Asked; Counseling Given: Not Answered Alcohol Use Standard Drinks/Week Comments Yes 0 (1 standard drink = 0.6 oz pur e alcohol) OCASSIONAL Housing Instability Answer Date Recorde d Are you worried that in the next 2 months you may not have stable housing? No 03/27/2025 Food Access & Nutrition Answer Date Rec orded Do you have access to a vari ety of food including fruits and vegetables? Yes 03/27/2025 Health Literacy Answer Date Recorded How often do you need to hav e someone help you when you read instructions, pamphlets, or other written material from your doctor or pharmacy? Never 03/27/2025 Caregiver: How often do you need to have someone help you when you read instructions, pamphlets, or other written material from your doctor or pharmacy? Not on file 03/27/2025 Financial Risk Answer Date Recorded How hard is it for you to pa y for the very basics like food, housing, medical care, and air conditioning / heating? Not very hard 03/27/2025 Transportation Answer Date Recorded Has the lack of transportati on kept you from meetings, work, or from getting things needed for daily living? No Has the lack of transportati on kept you from medical appointments or from getting medications? No 03/27/2025 Social Isolation Answer Date Recorded How often do you feel lonely or isolated from th ose around you? Never 03/27/2025 Food Risk Answer Date Recorded Within the past 12 months we worried whether our food would run out before we got money to buy more. Never true 03/27/2025 Within the past 12 months th e food we bought just didn't last and we didn't have money to get more. Never true 03/27/2025 Dependent Care Answer Date Recorded Do you need help finding or paying for care for your loved ones. For example, child health associate or elderly care for an older adult? No 03/27/2025 Education Answer Date Recorded Do you think completing more education or training, like finishing a GED, going to college, or learning a trade, would be helpful for you? No 03/27/2025 Employment and Income Answer Date Recor ded During the last four weeks, have you been actively looking for work? No 03/27/2025 Living Situation Answer Date Recorded What is your living situation? 0 03/27/2025 Interpersonal Safety Answer Date Record ed Physical Abuse 03/02/2025 Verbal Abuse 03/02/2025 Sex and Gender Information Value Date Recorded Sex Assigned at Male 01/12/2025 3:29 PM EDT Legal Sex Male 4:15 PM EST Gender Identity Male 01/12/2025 3:29 PM EDT Sexual Orientation Straight 01/12/2025 3: 29 PM EDT Obstetrics History Last Filed Vital Signs Vital Sign Reading Time Taken Comments Blood Pressure 160/100 04/25/2025 10:10 AM EDT Pulse 76 04/25/2025 10:10 AM EDT Temperature 36.5 C (97.7 F) 04/25/2025 10:10 AM EDT Respiratory Rate 17 03/27/2025 7:48 AM EDT Oxygen Saturation 95% 03/02/2025 8:30 AM EDT Inhaled Oxygen Concentration - - Weight 107 kg (236 lb) 05/11/2025 12:00 PM EDT Height 170.2 cm (5' 7 ) 05/11/2025 12:00 PM EDT Body Mass Index 36.96 05/11/2025 12:00 PM EDT Plan of Treatment Upcoming Encounters Date Type Department Care Team (Latest Contact Info) Description 06/01/2025 10:30 AM EDT Pre-Admission Testing [facility] Pre-Admission Testing [address] [place] [phone] 06/08/2025 11:15 AM EDT Appointment [facility] CT Scan [address] [place] [phone] 06/08/2025 2:00 PM EDT Hospital Encounter [facility] Main OR [address] [place] [phone] Katina Haile MD [address] [place] [phone] 06/08/2025 2:00 PM EDT - 06/08/2025 3:30 PM EDT Surgery [facility] Main OR [address] [place] [phone] Katina Haile MD [address] [place] [phone] EXAMINATION UNDER ANESTHESIA; HEMMORRHOIDECTOMY; HEMORRHOID BANDING [08451 (CPT )] 06/27/2025 10:00 AM EST Office Visit General Surgery [facility] [address] [facility] [address] [place] [phone] Katina Haile MD [address] [place] [phone] 09/27/2025 8:00 AM EST Office Visit Adult Medicine [address] [phone] Naseem Huddleston PA [address] [place] [phone] Scheduled Procedures Name Priority Associated Diagnoses Date/Ti me EXAMINATION UNDER ANESTHESIA BRBPR (bright red blood per rectum) Internal hemorrhoids with complication 06/08/2025 2:00 PM EDT HEMORRHOIDECTOMY BRBPR (bright red blood per rectum) Internal hemorrhoids with complication 06/08/2025 2:00 PM EDT HEMORRHOID BANDING BRBPR (bright red blood per rectum) Internal hemorrhoids with complication 06/08/2025 2:00 PM EDT Health Maintenance Due Date Last Done Comments HIV Screening 08/02/2022 COVID-19 Vaccine ( season) 2025 05/07/2024, 11/29/2023, 08/11/2022, Additional history exists Influenza Vaccine (#1) 2025 09/05/2012 Lung Cancer Screening (Low Dose CT) 05/02/2025 05/02/2024, 04/18/2023, 04/11/2022, Additional history exists Social Influencers of Health Screening 03/27/2026 03/27/2025 Hypertension/CHF/CAD Annual BMP Blood Test 04/04/2026 04/04/2025, 07/25/2024 Colorectal Cancer Screening: Colonoscopy 03/02/2030 03/02/2025, 05/22/2022 Cholesterol Screening (Lipid Panel) 04/04/2030 04/04/2025, 07/25/2024, 09/09/2023 DTaP,Tdap,and Td Vaccines (3 - Td or Tdap) 06/20/2031 06/20/2021, 12/23/2011 Hepatitis C Screening Completed 05/24/2019 Pneumococcal Vaccine: 50+ Years Completed 09/23/2024 Depression Screening Completed 03/27/2025, 05/24/20 24 HIB Vaccines Aged Out No longer eligi [...] age to complete this topic RSV Immunization Adult Patients Discontinued RSV Immunization Patients Under 20 months Aged Out No longer eligible based on patient's age to complete this topic Varicella Vaccines Aged Out No longer eligible based on patient's age to complete this topic Zoster Vaccines Discontinued Goals Goal Patient Goal Type Associated Problems Recent Progress Patient-Stated? Author feel better General Yes Darvin Barone PT STG General No Darvin Barone PT Note: Pt will be instructed in and provided with HEP. Procedures Procedure Name Priority Date/Time Associated Diagnosis Comments CBC WITH AUTO DIFFERENTIAL Routine 04/04/2025 11:15 AM EDT Coronary artery disease due to lipid rich plaque Chronic obstructive pulmonary disease with acute exacerbation ([facility] V24, [facility] V28) Hyperlipidemia, unspecified hyperlipidemia type Anxiety Lumbar radiculitis Primary hypertension Severe obesity (BMI 35.0-39.9) with comorbidity ([facility] V24, [facility] V28) PVD (peripheral vascular disease) ([facility] V24) Gastroesophageal reflux disease without esophagitis LIPID PANEL WITH REFLEX TO DIRECT LDL Routine 04/04/2025 11:15 AM EDT Coronary artery disease due to lipid rich plaque Chronic obstructive pulmonary disease with acute exacerbation ([facility] V24, [facility] V28) Hyperlipidemia, unspecified hyperlipidemia type Anxiety Lumbar radiculitis Primary hypertension Severe obesity (BMI 35.0-39.9) with comorbidity ([facility] V24, [facility] V28) PVD (peripheral vascular disease) ([facility] V24) Gastroesophageal reflux disease without esophagitis HEMOGLOBIN A1C Routine 04/04/2025 11:15 AM EDT Coronary artery disease due to lipid rich plaque Chronic obstructive pulmonary disease with acute exacerbation ([facility] V24, [facility] V28) Hyperlipidemia, unspecified hyperlipidemia type Anxiety Lumbar radiculitis Primary hypertension Severe obesity (BMI 35.0-39.9) with comorbidity ([facility]/HCC V24, CMS/[facility] V28) PVD (peripheral vascular disease) ([facility] V24) Gastroesophageal reflux disease without esophagitis COMPREHENSIVE METABOLIC PANEL Routine 04/04/2025 11:15 AM EDT Coronary artery disease due to lipid rich plaque Chronic obstructive pulmonary disease with acute exacerbation (CMS/HCC V24, CMS/HCC V28) Hyperlipidemia, unspecified hyperlipidemia type Anxiety Lumbar radiculitis Primary hypertension Severe obesity (BMI 35.0-39.9) with comorbidity (CMS/HCC V24, CMS/HCC V28) PVD (peripheral vascular disease) (CMS/HCC V24) Gastroesophageal reflux disease without esophagitis CBC AND DIFFERENTIAL Routine 04/04/2025 11:15 AM EDT Coronary artery disease due to lipid rich plaque Chronic obstructive pulmonary disease with acute exacerbation (CMS/HCC V24, CMS/HCC V28) Hyperlipidemia, unspecified hyperlipidemia type Anxiety Lumbar radiculitis Primary hypertension Severe obesity (BMI 35.0-39.9) with comorbidity (CMS/HCC V24, CMS/HCC V28) PVD (peripheral vascular disease) (CMS/HCC V24) Gastroesophageal reflux disease without esophagitis PROSTATE SPECIFIC ANTIGEN SCREEN Routine 04/04/2025 11:15 AM EDT Coronary artery disease due to lipid rich plaque Chronic obstructive pulmonary disease with acute exacerbation (CMS/HCC V24, CMS/HCC V28) Hyperlipidemia, unspecified hyperlipidemia type Anxiety Lumbar radiculitis Primary hypertension Severe obesity (BMI 35.0-39.9) with comorbidity (CMS/HCC V24, CMS/HCC V28) PVD (peripheral vascular disease) (CMS/HCC V24) Gastroesophageal reflux disease without esophagitis THYROID STIMULATING HORMONE WITH REFLEX TO FREE T4 AND FREE T3 Routine 04/04/2025 11:15 AM EDT Coronary artery disease due to lipid rich plaque Chronic obstructive pulmonary disease with acute exacerbation (CMS/HCC V24, CMS/HCC V28) Hyperlipidemia, unspecified hyperlipidemia type Anxiety Lumbar radiculitis Primary hypertension Severe obesity (BMI 35.0-39.9) with comorbidity (CMS/HCC V24, CMS/HCC V28) PVD (peripheral vascular disease) (CMS/HCC V24) Gastroesophageal reflux disease without esophagitis COLONOSCOPY Routine 03/02/2025 8:09 AM EDT BRBPR (bright red blood per rectum) Tubular adenoma of colon TISSUE EXAM Routine 03/02/2025 8:02 AM EDT BRBPR (bright red blood per rectum) Tubular adenoma of colon HM DEPRESSION SCREENING Routine 05/24/2024 CT LUNG SCREENING LOW DOSE Routine 05/02/2024 10:26 AM EDT Encounter for screening for malignant neoplasm of respiratory organs HEPATITIS C SCREENING Routine 05/24/2019 from Last 3 Months or Most Recently Relevant to Health Maintenance Results * Prostate specific antigen screen (04/04/2025 11:15 AM EDT) PSA 2.64 0.00 - 4.00 ng/mL LAB CHEMISTRY METHOD 04/04/2025 4:56 PM EDT [facility] Blood Venous blood specimen / Unknown Venipuncture / Unknown 04/04/2025 11:15 AM EDT 04/04/2025 11:15 AM EDT Narrative [facility] - 04/04/2025 4:56 PM EDT The Siemens Advia Centaur Chemiluminescent Immunoassay is used. Results obtained with different assay methods or kits cannot be used interchangeably. Results cannot be interpreted as absolute evidence of the presence or absence of malignant disease. Naseem JEAN BAPTISTE LAB BLOOD ORDERABLES Linda bain Result [facility] [address] [place] [address], * Thyroid stimulating hormone with reflex to free t4 and free t3 (04/04/2025 11:15 AM EDT) TSH 0.91 0.40 - 4.00 mcIU/mL LAB CHEMISTRY METHOD 04/04/2025 5:50 PM EDT [facility] Blood Venous blood specimen / Unknown Venipuncture / Unknown 04/04/2025 11:15 AM EDT 04/04/2025 11:15 AM EDT Naseem JEAN BAPTISTE LAB BLOOD ORDERABLES Linda l Result Performing Organization Address City/[facility]/ZIP Co de Phone Number [facility] [address] [place] [address], [place] [phone] * Lipid panel with reflex to direct LDL (04/04/2025 11:15 AM EDT) Cholesterol 87 0 - 200 mg/dL LAB CHEMISTRY METHOD 04/04/2025 4:11 PM EDT [facility] Triglycerides 101 0 - 150 mg/dL LAB CHEMISTRY METHOD 04/04/2025 4:11 PM EDT [facility] HDL 41 >=40 mg/dL LAB CHEMISTRY METHOD 04/04/2025 4:11 PM EDT [facility] LDL Calculated 26 0 - 100 mg/dL LAB CHEMISTRY METHOD 04/04/2025 4:11 PM EDT [facility] Comment:Estimated LDL Calcul ated using equation: Total cholesterol - HDL cholesterol - (Triglycerides/5) VLDL Cholesterol Shaun 20.2 mg/dL LAB CHEMISTRY METHOD 04/04/2025 4:11 PM EDT [facility] Non HDL Chol. (LDL+VLDL) 46 <145 mg/dL LAB CHEMISTRY METHOD 04/04/2025 4:11 PM EDT [facility] Chol/HDL Ratio 2.1 0.0 - 4.4 LAB CHEMISTRY METHOD 04/04/2025 4:11 PM EDT [facility] Blood Venous blood specimen / Unknown Venipuncture / Unknown 04/04/2025 11:15 AM EDT 04/04/2025 11:15 AM EDT Naseem JEAN BAPTISTE LAB BLOOD ORDERABLES Linda l Result [facility] [address] [place] [address], * (ABNORMAL) CBC auto differential (04/04/2025 11:15 AM EDT) WBC 11.3(H) 4.8 - 10.8 K/mcL LAB HEMETOLOGY METHOD 04/04/2025 12:15 PM EDT [facility] RBC 4.50 4.50 - 5.50 M/mcL LAB HEMETOLOGY METHOD 04/04/2025 12:15 PM EDT [facility] Hemoglobin 14.7 13.5 - 17.5 g/dL LAB HEMETOLOGY METHOD 04/04/2025 12:15 PM EDT [facility] Hematocrit 43.5 42.0 - 54.0 % LAB HEMETOLOGY METHOD 04/04/2025 12:15 PM EDT [facility] MCV 96.2 79.0 - 98.0 FL LAB HEMETOLOGY METHOD 04/04/2025 12:15 PM EDT [facility] MCH 32.5(H) 27.0 - 32.0 pcg LAB HEMETOLOGY METHOD 04/04/2025 12:15 PM EDT [facility] MCHC 33.8 32.0 - 37.0 g/dL LAB HEMETOLOGY METHOD 04/04/2025 12:15 PM EDT [facility] RDW 12.2 11.0 - 15.0 % LAB HEMETOLOGY METHOD 04/04/2025 12:15 PM EDT [facility] Platelets 214 130 - 400 K/mcL LAB HEMETOLOGY METHOD 04/04/2025 12:15 PM EDT [facility] MPV 13.1(H) 7.0 - 11.0 FL LAB HEMETOLOGY METHOD 04/04/2025 12:15 PM EDT [facility] NRBC 0.0 <1.0 % LAB HEMETOLOGY [facility] NR[facility] Absolute 0.00 <0.10 K/mcL LAB HEMETOLOGY METHOD 04/04/2025 12:15 PM [facility] Neutrophils Relative 64.5 % LAB HEMETOLOGY METHOD 04/04/2025 12:15 PM [facility] Lymphocytes Relative 23.2 % LAB HEMETOLOGY METHOD 04/04[facility]2025 12:[facility] Monocytes Relative 8.8 % LAB HEMETOLOGY METHOD 04/04/2025 12:15 PM [facility] Eosinophils Relative 2.2 % LAB HEMETOLOGY METHOD 04/04/2025 12:15 PM [facility] Basophils Relative 0.8 % LAB HEMETOLOGY METHOD 04/04/2025 12:15 PM [facility] Immature Granulocytes Relative 0.5 % LAB HEMETOLOGY METHOD 04/04/2025 12:15 PM [facility] Neutrophils Absolute 7.26(H) 1.50 - 7.00 K/mcL LAB HEMETOLOGY METHOD 04/04/2025 12:15 PM [facility] Lymphocytes Absolute 2.62 1.00 - 5.00 K/mcL LAB HEMETOLOGY METHOD 04/04/2025 12:15 PM [facility] Monocytes Absolute 0.99 0.20 - 1.00 K/mcL LAB HEMETOLOGY METHOD 04/04/2025 12:15 PM [facility] Eosinophils Absolute 0.25 0.00 - 0.50 K/mcL LAB HEMETOLOGY METHOD 04/04/2025 12:15 PM [facility] Basophils Absolute 0.09 0.00 - 0.20 K/mcL LAB HEMETOLOGY METHOD 04/04/2025 12:15 PM EDT [facility] Immature Granulocytes Absolute 0.06(H) 0.00 - 0.03 K/mcL LAB HEMETOLOGY METHOD 04/04/2025 12:15 PM EDT [facility] Blood Venous blood specimen / Unknown Venipuncture / Unknown 04/04/2025 11:15 AM EDT 04/04/2025 11:15 AM EDT Naseem JEAN BAPTISTE LAB BLOOD ORDERABLES Linda l Result Performing Organization Address [facility]/ZIP Co de Phone Number [facility] [address] [place] [address], [place] [phone] * Hemoglobin A1c (04/04/2025 11:15 AM EDT) Hemoglobin A1C 6.1 <6.5 % LAB CHEMISTRY METHOD 04/04/2025 6:21 PM EDT [facility] Mean Bld Glu Estim. 128 mg/dL LAB CHEMISTRY METHOD 04/04/2025 6:21 PM EDT [facility] Blood Venous blood specimen / Unknown Venipuncture / Unknown 04/04/2025 11:15 AM EDT 04/04/2025 11:15 AM EDT Naseem JEAN BAPTISTE LAB BLOOD ORDERABLES Linda l Result Performing Organization Address City/[facility]/ZIP Co de Phone Number [facility] [address] [place] [address], [place] [phone] * (ABNORMAL) Comprehensive metabolic panel (04/04/2025 11:15 AM EDT) Sodium 138 133 - 145 mmol/L LAB CHEMISTRY METHOD 04/04/2025 4:14 PM EDT [facility] Potassium 4.1 3.5 - 5.5 mmol/L LAB CHEMISTRY METHOD 04/04/2025 4:14 PM EDT [facility] Chloride 105 96 - 110 mmol/L LAB CHEMISTRY METHOD 04/04/2025 4:14 PM [facility] CO2 26 21 - 32 mmol/L LAB CHEMISTRY METHOD 04/04/2025 4:14 PM [facility] Anion Gap 7 3 - 11 LAB CHEMISTRY METHOD 04/04/2025 4:14 PM [facility] Glucose 117(H) 70 - 100 mg/dL LAB CHEMISTRY METHOD 04/04/2025 4:14 PM [facility] BUN 12 5 - 25 mg/dL LAB CHEMISTRY METHOD 04/04/2025 4:14 PM [facility] Creatinine 0.96 0.70 - 1.30 mg/dL LAB CHEMISTRY METHOD 04/04/2025 4:14 PM [facility] eGFR 89 >=60 mL/min/1. 73m2 LAB CHEMISTRY METHOD 04/04/2025 4:14 PM [facility] Comment:Calculation based on the Chronic Kidney Disease Epidemiology Collaboration (CKD-EPI) equation refit without adjustment for race. BUN/Creatinine Ratio 12.5 LAB CHEMISTRY METHOD 04/04/2025 4:14 PM [facility] Calcium 8.9 8.5 - 10.5 mg/dL LAB CHEMISTRY METHOD 04/04/2025 4:14 PM [facility] AST (SGOT) 28 10 - 42 unit/L LAB CHEMISTRY METHOD 04/04/2025 4:14 PM [facility] ALT (SGPT) 42 10 - 60 unit/L LAB CHEMISTRY METHOD 04/04/2025 4:14 PM [facility] Alkaline Phosphatase 97 42 - 121 unit/L LAB CHEMISTRY METHOD 04/04/2025 4:14 PM [facility] Total Protein 6.9 6.0 - 8.0 g/dL LAB CHEMISTRY METHOD 04/04/2025 4:14 PM EDT [facility] Albumin 3.6 3.2 - 5.0 g/dL LAB CHEMISTRY METHOD 04/04/2025 4:14 PM EDT [facility] Total Bilirubin 0.8 0.0 - 1.4 mg/dL LAB CHEMISTRY METHOD 04/04/2025 4:14 PM EDT [facility] Blood Venous blood specimen / Unknown Venipuncture / Unknown 04/04/2025 11:15 AM EDT 04/04/2025 11:15 AM EDT us Naseem JEAN [facility] LAB BLOOD ORDERABLES Linda l Result [facility] [address] [place] [address], * COLONOSCOPY Anesthesia - MAC; [facility] ENDOSCOPY (03/02/2025 8:09 AM EDT) Anatomical Region Laterality Modality Endoscopy 03/02/2025 7:55 AM EDT Impressions 03/02/2025 8:14 AM EDT - Two 2 to 9 mm polyps in the sigmoid colon and in the transverse colon, removed with a cold snare. Resected and retrieved. - Diverticulosis in the sigmoid colon. - Internal hemorrhoids. - The examination was otherwise normal. Recommendation: - Discharge patient to home. - Await pathology results. - Repeat colonoscopy in 5 years for surveillance. Narrative 03/02/2025 8:14 AM EDT [facility] Patient Name: Nash Aquino Procedure Date: 03/02/2025 7:55 AM Date of : 1960 Age: 64 Gender: Male Note Status: Finalized Attending MD: Arabella Erickson MD, Procedure Date No Time: 03/02/2025 Procedure: Colonoscopy Indications: Evaluation of unexplained GI bleeding presenting with Hematochezia Providers: Arabella Erickson MD Referring MD: Arabella Erickson MD Medicines: Monitored Anesthesia Care Complications: No immediate complications. Estimated blood loss: Minimal. Estimated Blood Loss: Estimated blood loss was minimal. Procedure: Pre-Anesthesia Assessment: - Prior to the procedure, a History and Physical was performed, and patient medications and allergies were reviewed. The patient is competent. The risks and benefits of the procedure and the sedation options and risks were discussed with the patient. All questions were answered and informed consent was obtained. Patient identification and proposed procedure were verified by the physician, the nurse, the clearance representative and the network operations center technician in the pre-procedure area in the endoscopy suite. Mental Status Examination: alert and oriented. Airway Examination: normal oropharyngeal airway and neck mobility. Respiratory Examination: clear to auscultation. CV Examination: normal. Prophylactic Antibiotics: The patient does not require prophylactic antibiotics. Prior Anticoagulants: The patient has taken no anticoagulant or antiplatelet agents. ASA Grade Assessment: III - A patient with severe systemic disease. After reviewing the risks and benefits, the patient was deemed in satisfactory condition to undergo the procedure. The anesthesia plan was to use monitored anesthesia care (MAC). Immediately prior to administration of medications, the patient was re-assessed for adequacy to receive sedatives. The heart rate, respiratory rate, oxygen saturations, blood pressure, adequacy of pulmonary ventilation, and response to care were monitored throughout the procedure. The physical status of the patient was re-assessed after the procedure. After I obtained informed consent, the scope was passed under direct vision. Throughout the procedure, the patient's blood pressure, pulse, and oxygen saturations were monitored continuously. The Olympus Colonoscope was introduced through the anus and advanced to the cecum, identified by appendiceal orifice and ileocecal valve. The colonoscopy was performed without difficulty. The patient tolerated the procedure well. The quality of the bowel preparation was good. Findings: The perianal and digital rectal examinations were normal. Two sessile polyps were found in the sigmoid colon and transverse colon. The polyps were 2 to 9 mm in size. These polyps were removed with a cold snare. Resection and retrieval were complete. Estimated blood loss was minimal. Scattered small-mouthed diverticula were found in the sigmoid colon. Internal hemorrhoids were found during retroflexion. The hemorrhoids were medium-sized and Grade II (internal hemorrhoids that prolapse but reduce spontaneously). The exam was otherwise without abnormality. Procedure Code(s): --- Professional --- 10678, Colonoscopy, flexible; with removal of tumor(s), polyp(s), or other lesion(s) by snare technique Diagnosis Code(s): --- Professional --- D12.5, Benign neoplasm of sigmoid colon D12.3, Benign neoplasm of transverse colon (hepatic flexure or splenic flexure) CPT copyright 2020 [employer]. All rights reserved. The codes documented in this report are preliminary and upon package dye stand loader review may be revised to meet current compliance requirements. Arabella Erickson MD 03/02/2025 8:14:06 AM This report has been signed electronically.Arabella Erickson MD Number of Addenda: 0 Note Initiated On: 03/02/2025 7:55 AM Scope Withdrawal Time: 0 hours 9 minutes 29 seconds Scope In: 8:01:14 AM Scope Out: 8:11:49 AM Endoscopy Department at [facility] - [address] [place] [phone] Procedure Note Arabella Erickson MD - 03/02/2025 [facility] Patient Name: Nash Aquino Procedure Date: 03/02/2025 7:55 AM Date of : 1960 Age: 64 Gender: Male Note Status: Finalized Attending MD: Arabella Erickson MD, Procedure Date No Time: 03/02/2025 Procedure: Colonoscopy Indications: Evaluation of unexplained GI bleeding presentingwith Hematochezia Providers: Arabella Erickson MD Referring MD: Arabella Erickson MD Medicines: Monitored Anesthesia Care Complications: No immediate complications. Estimated blood loss: Minimal. Estimated Blood Loss: Estimated blood loss was minimal. Procedure: Pre-Anesthesia Assessment: - Prior to the procedure, a History and Physicalwas performed, and patient medications and allergieswere reviewed. The patient is competent. The risks and benefits of the procedure and the sedation optionsand risks were discussed with the patient. Allquestions were answered and informed consent was obtained. Patient identification and proposed procedure were verified by the physician, the nurse, theanesthetist and the network operations center technician in the pre-procedure area in the endoscopy suite. Mental Status Examination: alertand oriented. Airway Examination: normal oropharyngeal airway and neck mobility. Respiratory Examination: clear to auscultation. CV Examination: normal. Prophylactic Antibiotics: The patient does notrequire prophylactic antibiotics. Prior Anticoagulants: The patient has taken no anticoagulant or antiplatelet agents. ASA Grade Assessment: III - A patient with severe systemic disease. After reviewing the risksand benefits, the patient was deemed in satisfactory condition to undergo the procedure. The anesthesia plan was to use monitored anesthesia care (MAC). Immediately prior to administration of medications, the patient was re-assessed for adequacy to receive sedatives. The heart rate, respiratory rate, oxygen saturations, blood pressure, adequacy of pulmonary ventilation, and response to care were monitored throughout the procedure. The physical status ofthe patient was re-assessed after the procedure. After I obtained informed consent, the scope was passed under direct vision. Throughout theprocedure, the patient's blood pressure, pulse, and oxygen saturations were monitored continuously. TheOlympus Colonoscope was introduced through the anus and advanced to the cecum, identified by appendiceal orifice and ileocecal valve. The colonoscopy was performed without difficulty. The patient tolerated the procedure well. The quality of the bowel preparation was good. Findings: The perianal and digital rectal examinations were normal. Two sessile polyps were found in the sigmoid colonand transverse colon. The polyps were 2 to 9 mm insize. These polyps were removed with a cold snare.Resection and retrieval were complete. Estimated blood losswas minimal. Scattered small-mouthed diverticula were found inthe sigmoid colon. Internal hemorrhoids were found duringretroflexion. The hemorrhoids were medium-sized and Grade II (internal hemorrhoids that prolapse but reduce spontaneously). The exam was otherwise without abnormality. Procedure Code(s): --- Professional --- 02524, Colonoscopy, flexible; with removal of tumor(s), polyp(s), or other lesion(s) by snare technique Diagnosis Code(s): --- Professional --- D12.5, Benign neoplasm of sigmoid colon D12.3, Benign neoplasm of transverse colon (hepatic flexure or splenic flexure) CPT copyright 2020 [employer]. All rights reserved. The codes documented in this report are preliminary and upon package dye stand loader reviewmay be revised to meet current compliance requirements. Arabella Erickson MD 03/02/2025 8:14:06 AM This report has been signed electronically.Arabella Erickson MD Number of Addenda: 0 Note Initiated On: 03/02/2025 7:55 AM Scope Withdrawal Time: 0 hours 9 minutes 29 seconds Scope In: 8:01:14 AM Scope Out: 8:11:49 AM Endoscopy Department at [facility] - [address] [place] [phone] IMPRESSION: - Two 2 to 9 mm polyps in the sigmoid colon and in the transverse colon, removed with a cold snare.Resected and retrieved. - Diverticulosis in the sigmoid colon. - Internal hemorrhoids. - The examination was otherwise normal. Recommendation: - Discharge patient to home. - Await pathology results. - Repeat colonoscopy in 5 years for surveillance. us Arabella Erickson MD GI~PROCEDURE ORDERABLES Fin al Result * Tissue exam (03/02/2025 8:02 AM EDT) Final Diagnosis A. Large Intestine, Transverse Colon, polyp x1: - Tubular adenoma. B. Large Intestine, Sigmoid Colon, polyp x1: - Hyperplastic polyp. 03/03/2025 10:00 AM EDT [facility] Gross Description A. Large Intestine, Transverse Colon, polyp x1: Labeled trans colon polyp x 1 . Received in formalin are four irregular tobin mucosal tissue fragments, ranging from 0.2 cm to 0.4 cm in greatest dimension, which are wrapped in paper and submitted in toto in one cassette, four pieces, multiple levels on one slide. B. Large Intestine, Sigmoid Colon, polyp x1: Labeled Sig colon polyp x 1 . Received in formalin are two irregular tobin mucosal tissue fragments, measuring 0.1 cm and 0.5 cm in greatest dimension, which are wrapped in paper and submitted in toto in one cassette, two pieces, multiple levels on one slide. [place] 03/03/2025 10:00 AM EDT [facility] Disclaimer Unless otherwise specified, all tissue is 10% NB formalin fixed and paraffin embedded. 03/03/2025 10:00 AM EDT [facility] Tissue Transverse colon structure / Unknown 03/02/2025 8:02 AM EDT 03/02/2025 10:43 AM EDT Tissue specimen (specimen) Sigmoid colon structure / Unknown 03/02/2025 8:05 AM EDT 03/02/2025 10:43 AM EDT Arabella Erickson MD LAB PATHOLOGY ORDERABLES Fi nal Result [facility] [address] [place] [address], * Depression Screening (05/24/2024) Depression Screening abstracted Historical Provider HEALTH MAINTENANCE Final Result * CT LUNG SCREENING LOW DOSE (05/02/2024 10:26 AM EDT) Anatomical Region Laterality Modality Computed Tomogra phy 05/02/2024 7:28 AM EDT Narrative 05/02/2024 10:26 AM EDT [facility] Diagnostic Imaging Department [address] [place] [address] Patient: NASH AQUINO Terence /Age/Sex: 1960 - 64 - M Unit#: [id number] Location/Status: MARTHAICAGIOVANNAS/GARCÍA CLI Mnemonic/Ordering Site: CTLUNGLD/SPCT Ordering Physician: GIGI LAWSON MD CT Lung Screening Low Dose - 05/02/24737 Report Status:Signed Indication: Greater than 20 total pack-year smoking history, asymptomatic current smoker Technique: Low-dose CT scan of the chest obtained as a lung cancer screening study. Multiplanar reformatted images were obtained. Dose reduction technique: ASIR (Adaptive statistical iterative reconstruction) and/or AEC (automated exposure control) DLP: 202.79 mGy-cm COMPARISON: March 2023. FINDINGS: Lack of intravenous contrast limits evaluation of the kwesi, vascular structures and visualized abdominal viscera. Lungs/airways: Trachea and central airways are patent. Mild bronchial wall thickening. Mild emphysematous changes. Multiple scattered pulmonary nodules, similar to prior. For example: 4 mm solid nodule left lung base (image 221) 3 mm solid juxtapleural nodule along the left major fissure (image 130) 3 mm solid nodule right middle lobe (image 107) Base of the neck, mediastinum, heart, chest wall, vessels: The assessment of hilar lymphadenopathy is difficult without the use of IV contrast. No enlarged mediastinal lymphadenopathy. Coronary artery calcifications. Low-attenuation lesion adjacent to the right pericardium is [...] with LDCT in 12 months. Dictating Physician: MICHELLE MARSHALL MD Electronically Signed by: MICHELLE MARSHALL MD Dic Date/Time: 05/02/24 1010 Sign date/Time: 05/02/24 1026 Procedure Note Michelle Marshall MD - 06/08/2024 [facility] Diagnostic Imaging Department [address] [place] [address] Patient: NASH AQUINO Terence /Age/Sex: 1960 - 64 - M Unit#: [id number] Location/Status: SPDICATLS/REG CLI Mnemonic/Ordering Site: [facility] Ordering Physician: GIGI LAWSON MD CT Lung Screening Low Dose - 05/02/24 - 38 Report Status:Signed Indication: Greater than 20 total [...] LDCT in 12 months. Dictating Physician: MICHELLE MARSHALL MD Electronically Signed by: MICHELLE MARSHALL MD Dic Date/Time: 05/02/24 1010 Sign date/Time: 05/02/24 1026 Gigi Lawson MD IMG CT PROCEDURES Final Result * Hm Hepatitis C Screening (05/24/2019) Hepatitis C Screening abstracted Historical Provider HEALTH MAINTENANCE Final Result from Last 3 Months or Most Recently Relevant to Health Maintenance Insurance [facility] [facility] Care Teams Underwear Cutter Relationship Specialty Start Date End Date Naseem Huddleston PA [address] [place] [address] PCP - General Internal Medicine 11/26/20
--- OUTSIDE RECORDS SUMMARY | 2025-05-12 08:49 | XMS_ITS | Encounter Summary ---
Author Organization [facility] Address [address] [place] [address] Care Team Providers Care Train Operations Supervisor Name Role Phone Naseem Huddleston Primary Care Provider [phone] Reason for Visit * Reason Onset Date Comments Diarrhea 10/04/2024 Encounter Details Date Type Department Care Team (Late st Contact Info) Description 10/04/2024 Nurse Triage Adult Medicine [address] [phone] Naseem Huddleston PA [address] [place] [phone] Social History Tobacco Use Types Packs/Day Years Used Date Smoking Tobacco: Every Day Cigarettes 1 51.1 Started: 04/07/1974 Smokeless Tobacco: Never Alcohol Use Standard Drinks/Week Comments Yes 0 (1 standard drink = 0.6 oz pur e alcohol) Sex and Gender Information Value Date Recorded Sex Assigned at Male 01/12/2025 3:29 PM EDT Legal Sex Male 4:15 PM EST Gender Identity Male 01/12/2025 3:29 PM EDT Sexual Orientation Straight 01/12/2025 3: 29 PM EDT documented as of this encounter Ordered Prescriptions [...] Who is patients PCP?: MARKEL Fonseca Payor: [facility] PL[facility] / Plan: [employer] / Product Type: *No Product type* / documented in this encounter Plan of Treatment Upcoming Encounters Date Type Department Care Team (Latest Contact Info) Description 06/01/2025 10:30 AM EDT Pre-Admission Testing [facility] Pre-Admission Testing [address] [place] [phone] 06/08/2025 11:[address] [facility] CT Scan [address] [place] [phone] 06/08/2025 2:00 PM EDT Hospital Encounter [facility] Main OR [address] [place] [phone] Katina Haile MD [address] [place] [phone] 06/08/2025 2:00 PM EDT - 06/08/2025 3:30 PM EDT Surgery [facility] OR [address] [place] [phone] Katina Haile MD [address] [place] [phone] EXAMINATION UNDER ANESTHESIA; HEMMORRHOIDECTOMY; HEMORRHOID BANDING [39002 (CPT )] 06/27/2025 10:00 AM EST Office Visit General Surgery [facility] [address] [facility] [address] [place] [phone] Katina Haile MD [address] [place] [phone] 09/27/2025 8:00 AM EST Office Visit Adult [address] [place] [phone] Naseem Huddleston PA [facility] [place] [phone] Scheduled Procedures Name Priority Associated Diagnoses Date/Ti me EXAMINATION UNDER ANESTHESIA BRBPR (bright red blood per rectum) Internal hemorrhoids with complication 06/08/2025 2:00 PM EDT HEMORRHOIDECTOMY BRBPR (bright red blood per rectum) Internal hemorrhoids with complication 06/08/2025 2:00 PM EDT HEMORRHOID BANDING BRBPR (bright red blood per rectum) Internal hemorrhoids with complication 06/08/2025 2:00 PM EDT documented as of this encounter Goals Goal Patient Goal Type Associated Problems Recent Progress Patient-Stated? Author feel better General Yes Darvin Barone PT STG General No Darvin Barone PT Note: Pt will be instructed in and provided with HEP. documented as of this encounter Visit Diagnoses Not on filedocumented in this encounter Care Teams Train Operations Supervisor Relationship Specialty Start Date End Date Naseem Huddleston PA [address] [place] [address] PCP - General Internal Medicine 11/26/20 documented as of this encounter
--- OUTSIDE RECORDS SUMMARY | 2025-05-12 08:49 | XMS_ITS | Encounter Summary ---
Author Organization [facility] Address [address] [place] [address] Care Team Providers Care Field Agronomist Name Role Phone Naseem Huddleston Primary Care Provider [phone] Reason for Visit * Reason Onset Date Comments Shoulder Pain 07/25/2024 Left Shoulder Encounter Details Date Type Department Care Team (Late st Contact Info) Description 07/25/2024 Nurse Triage Adult Medicine [address] [phone] Naseem Huddleston PA [address] [place] [phone] Social History Tobacco Use Types Packs/Day Years [...] traveled recently to another state outside of [place], [place], [place], [place], [place]? no o [...] gather 3rd green party insurance information Third Republican Information: not applicable PCP: MARKEL Fonseca Payor: / No coverage found. documented in this encounter Plan of Treatment Upcoming Encounters Date Type Department Care Team (Latest Contact Info) Description 06/01/2025 10:30 AM EDT Pre-Admission Testing [facility] Pre-Admission Testing [address] [place] [phone] 06/08/2025 11:15 AM EDT Appointment [facility] CT Scan [address] [place] [phone] 06/08/2025 2:00 PM EDT Hospital Encounter [facility] Main OR [address] [place] [phone] Katina Haile MD [address] [place] [phone] 06/08/2025 2:00 PM EDT - 06/08/2025 3:30 PM EDT Surgery [facility] OR [address] [place] [phone] Katina Haile MD [address] [place] [phone] EXAMINATION UNDER ANESTHESIA; HEMMORRHOIDECTOMY; HEMORRHOID BANDING [96089 (CPT )] 06/27/2025 10:00 AM EST Office Visit General Surgery [facility] [address] [facility] [address] [place] [phone] Katina Haile MD [address] [place] [phone] 09/27/2025 8:00 AM EST Office Visit Adult Medicine [facility] [address] [place] [phone] Naseem Huddleston PA [address] [place] [phone] Scheduled Procedures Name Priority Associated Diagnoses Date/Ti me EXAMINATION UNDER ANESTHESIA BRBPR (bright red blood per rectum) Internal hemorrhoids with complication 06/08/2025 2:00 PM EDT HEMORRHOIDECTOMY BRBPR (bright red blood per rectum) Internal hemorrhoids with complication 06/08/2025 2:00 PM EDT HEMORRHOID BANDING BRBPR (bright red blood per rectum) Internal hemorrhoids with complication 06/08/2025 2:00 PM EDT documented as of this encounter Visit Diagnoses Not on filedocumented in this encounter Care Teams Field Agronomist Relationship Specialty Start Date End Date Nsaeem Huddleston PA [address] [place] [phone] PCP - General Internal Medicine 11/26/20 documented as of this encounter
--- OUTSIDE RECORDS SUMMARY | 2025-05-12 08:50 | XMS_ITS | Clinical Summary ---
Author Organization [facility] Address [address] [place] [address] Care Team Providers Care Insurance Sales Supervisor Name Role Phone Naseem Huddleston PA-C Primary Care Provider Allergies Active Allergy Reactions Criticality Noted Date Comments Lisinopril 01/09/2015 Facial swelling Penicillins Other (See Comments) 08/14/2011 Passed out Tyloxapol Itching Medium 04/25/2010 MAKES HIM HAVE CONSTIPATION SWEATING CAN'T SLEEP AND ITCHY Medications Medication Sig Dispensed Refills Start Date End Date Status Aspirin Buf,PkFnei-DhPfpd-KiS, 81 MG TABS Take 81 mg by [...] Vaccine (1 of 2 - PCV) 1967 Pneumococcal Vaccine (1 of 2 - PCV) 1967 Depression Screening 1973 Preventative Health Evaluation 1979 DTap / Tdap / Td (1 - Tdap) 1980 Colon Cancer Screening (Colonoscopy) 2006 Shingrix-Zoster Vaccine (1 of 2) 2011 COVID-19 Vaccine (2 - 2024-2 6 season) 2025 11/19/2020 Influenza Vaccine (#1) 2025 09/05/2012 RSV Adult > 60+ Yrs or Pregn ant (1 - 1-dose 75+ series) 2036 Hepatitis B Vaccines Aged Out No long er eligible based on patient's age to complete this topic RSV Ped < 20 months Aged Out No longe r eligible based on patient's age to complete this topic Care Teams Insurance Sales Supervisor Relationship Specialty Start Date End Date Naseem Huddleston, PAViniC PCP - General Medical Services 03/19/21
--- OUTSIDE RECORDS SUMMARY | 2025-05-12 08:50 | XMS_ITS | Encounter Summary ---
Author Organization [facility] Address [address] [place] [address] Care Team Providers Care Associate Director Career Services Name Role Phone Naseem Huddleston Primary Care Provider [phone] Reason for Visit * Reason Onset Date Comments Forms/questionnaires 04/27/2025 Encounter Details Date Type Department Care Team ([facility] st Contact Info) Description 04/27/2025 Telephone General Surgery - [place] [facility] [address] [place] [address] Katina Haile MD [address] [place] [phone] Social History Tobacco Use Types Packs/Day Years [...] for your loved ones. For example, child care specialist or elderly care for an older adult? [...] as of this encounter Progress Notes * Katina Haile MD - 05/02/2025 3:33 PM EDT Will you call his pharmacy and see if they can get topical nitroglycerin ointment either 0.4% or 0.2%? Brand name is Rectiv. Thanks * Elaine Mills MA - 04/27/2025 2:50 PM EDT Called patient back and he stated that unfortunately he can't afford the special compound prescription at this time, He is asking if another prescription could be send to his regular pharmacy or any OTC cream can be recommended. * Jessie Carroll - 04/27/2025 8:42 AM EDT Patient called and said that the prescription Dr. Haile put in called Diltiazem 20 mg was sentto a different pharmacy then he uses and he says they told him it will be $100 dollars and he said he can't afford it. He said if its possible if can send over a different one that willcover by his insurance and he said to send it to his pharmacy in [facility]. documented in this encounter Plan of Treatment Upcoming Encounters Date Type Department Care Team (Latest Contact Info) Description 06/01/2025 10:30 AM EDT Pre-Admission Testing [facility] Pre-Admission Testing [address] [place] [phone] 06/08/2025 11:15 AM EDT Appointment [facility] CT Scan [address] [place] [phone] 06/08/2025 2:00 PM EDT Hospital Encounter [facility] Main OR [address] [place] [phone] Katina Haile MD [address] [place] [phone] 06/08/2025 2:00 PM EDT - 06/08/2025 3:30 PM EDT Surgery [facility] OR [address] [place] [phone] Katina Halie MD [address] [place] [phone] EXAMINATION UNDER ANESTHESIA; HEMMORRHOIDECTOMY; HEMORRHOID BANDING [[id number] (CPT )] 06/27/2025 10:00 AM EST Office Visit General Surgery [facility] [address] [facility] [address] [place] [phone] Katina Haile MD [address] [place] [phone] 09/27/2025 8:00 AM EST Office Visit Adult Medicine [facility] [address] [place] [address] Naseem Huddleston PA [address] [place] [phone] Scheduled Procedures Name Priority Associated Diagnoses Date/Ti [...] Diagnoses Not on filedocumented in this encounter Additional Health Concerns Assessment Noted Time PHQ-9 Depression Total Score: 0 03/27/20 25 7:47 AM EDT documented as of this encounter Care Teams Associate Director Career Services Relationship Specialty Start Date End Date Naseem Huddleston PA [address] [place] [address] PCP - General Internal Medicine 11/26/20 documented as of this encounter
== END 2025-05-12 09:21 | disposition home or self-care (01) ==
LOC: HO.HOS 08:19
PROVIDERS: PCP Physician Assistant Medical; Visit Provider Physician Assistant
DX: M77.8 Other enthesopathies, not elsewhere classified (principal); M75.52 Bursitis of left shoulder
CPT/HCPCS: 20610; 99213

== ENCOUNTER → 2025-05-12 08:19 | Outpatient (BNVA) | payer OTHER, SELFPAY | PROVIDERS: PCP Physician Assistant Medical; Visit Provider Physician Assistant | DX: M75.52 Bursitis of left shoulder (principal); M77.8 Other enthesopathies, not elsewhere classified; M54.16 Radiculopathy, lumbar region | CPT/HCPCS: 20610; 99212; J0665; J1100; J2003 ==

== ENCOUNTER → 2025-06-04 14:43 | Outpatient (BNV) | payer OTHER, SELFPAY | PROVIDERS: Visit Provider Radiology Diagnostic Radiology | DX: M75.112 Incomplete rotator cuff tear or rupture of left shoulder, not specified as traumatic (principal); M75.32 Calcific tendinitis of left shoulder; M19.012 Primary osteoarthritis, left shoulder; S46.122A Laceration of muscle, fascia and tendon of long head of biceps, left arm, initial encounter | CPT/HCPCS: 72148; 73221 ==

== ENCOUNTER 2025-06-04 14:51 | Outpatient (REF) | payer OTHER, SELFPAY ==
--- NOTE | ~2025-06-04 | MR_ITS ---
CLINICAL HISTORY: M75.52 - Bursitis of left shoulder MR left shoulder without contrast Comparison: DX/SC/SR - XR SHOULDER 2 OR MORE VIEWS LEFT - 11/24/24 08:45 EDT Findings: No fracture or dislocation of the osseous structures. Prominent interosseous vessel in the acromion. There is cystic change in the humeral head deep to the supraspinatus and infraspinatus tendons. Mild amount of edema/cystic change in the glenoid at the superior/posterior aspect.Mild acromioclavicular joint space narrowing and osteophytosis, degenerative. Trace joint fluid. There is a trace amount of fluid in the subacromial/subdeltoid bursa. There is a small amount of fluid in the subscapular recess. There is increased signal in the supraspinatus, infraspinatus and subscapularis tendons. There is partial tear of the supraspinatus tendon at the articular and bursal surfaces. There is partial tear of the infraspinatus and subscapularis tendons at the articular surface. There is no complete tear or retraction. No muscular atrophy. Teres minor is unremarkable. There is signal and contour abnormality of the labrum. Fluid signal at the posterior inferior aspect of glenoid measuring up to 9 mm may indicate a paralabral cyst. Partial-thickness glenohumeral chondromalacia, degenerative. There is a split tear of the long head of the biceps tendon. The bicipital labral anchor is increased in signal. The coracohumeral and coracoacromial ligaments are intact. Cutaneous and subcutaneous tissues are normal. The quadrilateral space is unremarkable. Impression: Trace amount of fluid in the subacromial/subdeltoid bursa. Small amount of fluid in the subscapular recess. Supraspinatus, infraspinatus and subscapularis tendinopathy with partial tears. No complete tear, retraction or muscular atrophy. Labral tear. Signal abnormality in the bicipital labral anchor. Paralabral cysts. Split tear of the long head of the biceps tendon. Acromioclavicular and glenohumeral degenerative change. This document has been electronically signed by: Marly Gamble MD on 06/07/2025 15:20:41
--- OUTSIDE RECORDS SUMMARY | 2025-06-04 14:54 | XMS_ITS | Clinical Summary ---
Author Organization [facility] Address [address] [place] [address] Care Team Providers Care Pipe Stem Sawyer Name Role Phone Naseem Huddleston PA-C Primary Care Provider Allergies Active Allergy Reactions Criticality Noted Date Comments Lisinopril 01/09/2015 Facial swelling Penicillins Other (See Comments) 08/14/2011 Passed out Tyloxapol Itching Medium 04/25/2010 MAKES HIM HAVE CONSTIPATION SWEATING CAN'T SLEEP AND ITCHY Medications Medication Sig Dispensed Refills Start Date End Date Status Aspirin Buf,[id number], 81 MG TABS Take 81 mg by [...] age to complete this topic Care Teams Pipe Stem Sawyer Relationship Specialty Start Date End Date Naseem Huddleston, PAViniC PCP - General Medical Services 03/19/21
--- OUTSIDE RECORDS SUMMARY | 2025-06-04 14:54 | XMS_ITS | Clinical Summary ---
Author Organization [address] Address [address] [place], [place] Phone Care Team Providers Care Tape Rules Printing Machine Operator Name Role Phone Naseem Huddleston Primary Care Provider [phone] Allergies Active Allergy Reactions Criticality Noted Date [...] at bedtime. at bedtime. 90 tablet 3 025 Active hydroCHLOROthiazi de [...] EVERY DAY 90 tablet 1 025 Active linaCLOtide (Linzess) 72 mcg capsule Take 1 capsule (72 mcg total) by mouth 1 (one) time each day. 30 capsule 11 025 2024 Discontinued Active Problems Problem Noted Date Diagnosed Date BRBPR (bright red blood per rectum) 04/25/2025 Internal hemorrhoids with complication Alcohol use 09/23/2024 Chronic low back pain 09/23/2024 Deep vein thrombosis (DVT) ([facility] V24, [facility] V28) 09/23/2024 Diverticula of intestine 09/23/2024 Hepatic steatosis 09/23/2024 Obesity with body mass index 30 or greater 09/23 Peripheral arterial occlusive disease ([facility] V 24) 09/23/2024 HTN (hypertension) 09/23/2024 Severe obesity (BMI 35.0-39. 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 Greenberg Encounters Date Type Department Care Team Description 05/25/2025 Telephone General Surgery - [place] [facility] [address] [place] [phone] Katina Haile MD 04/27/2025 Telephone General Surgery [facility] 175 [facility] [address] [place] [phone] Katina Haile MD 04/26/2025 Telephone General Surgery [facility] 175 [facility] [address] [place] [phone] Naida De La Rosa MA 04/25/2025 10:30 AM EDT Consult General Surgery - [place] [facility] [address] [place] [phone] Katina Haile MD Internal hemorrhoids with complication (Primary Dx); BRBPR (bright red blood per rectum); Anal fissure 04/11/2025 Telephone Lung Screening Program - [place] [facility] [address] [place] [phone] Niki Barnes MA 03/27/2025 8:00 AM EDT Office Visit Adult Medicine [address] [phone] Naseem Huddleston PA Coronary artery disease due to lipid rich plaque (Primary Dx); Chronic obstructive pulmonary disease with acute exacerbation (CMS/HCC V24, CMS/HCC V28); Hyperlipidemia, unspecified hyperlipidemia type; Anxiety; Lumbar radiculitis; Primary hypertension; Severe obesity (BMI 35.0-39.9) with comorbidity (CMS/HCC V24, CMS/HCC V28); PVD (peripheral vascular disease) (CMS/HCC V24); Gastroesophageal reflux disease without esophagitis 03/13/2025 Telephone Gastroenterology - [place] 175 [facility] 175 [facility] [address] [place] [phone] Adele Seals PA from Last 3 Months Immunizations Immunization Administration Dates Next Due Influenza trivalent, with pr eservative (Fluzone; Afluria) 6mo and older 09/05/2012 [employer] SARS-CoV-2 COVID -19, vector-nr, rS-Ad26, preservative free [...] Surgery Date Site/Laterality Comments COLONOSCOPY 02/02/2012 PROCEDURE: [place] COLONOSCOPY FLX DX W/COLLJ SPEC WHEN PFRMD; COMMENT: normal OTHER SURGICAL HISTORY 05/2015 PROCEDURE: ENDOVAS NON-CARDIAC ABL CATH; COMMENT: right leg, left arm PVD OTHER SURGICAL HISTORY PROCEDURE: [place] BYPASS W/VEIN [id number] ; COMMENT: dr. walsh COLONOSCOPY 05/22/2022 PROCEDURE: HISTORICAL COLONOSCOPY; COMMENT: tubular adenomas ESOPHAGOGASTRODUODENOSCOPY 05/22/2022 PROCEDURE: [place] EGD TRANSORAL BIOPSY SINGLE/MULTIPLE; COMMENT: GERD LEG SURGERY Right PROCEDURE: HISTORICAL LEG SURGERY; COMMENT: right tib/fib fx orif ORIF TIBIA FRACTURE 08/24/2020 - 08/23/2021 Right MENISCECTOMY Medical History Medical History Date Comments PVD (peripheral vascular dis ease) ([facility]/HCC V24) 12/23/2011 DX:PVD (peripheral vascular disease) ([facility]); COMMENT: History of ischemic left [...] Date Smoking Tobacco: Every Day Cigarettes 1 51.2 Started: 04/07/1974 Smokeless Tobacco: Never Tobacco Cessation:Ready [...] for your loved ones. For example, child attendant or elderly care for an older adult? [...] Date Recorded What is your living situation? Unrecognized valu e 03/27/2025 Interpersonal Safety Answer Date Record ed Physical Abuse Unrecognized value 03/02/2025 Verbal Abuse Unrecognized value 03/02/2025 Sex and Gender Information Value Date [...] Department Care Team (Latest Contact Info) Description 06/08/2025 2:00 PM EDT Hospital Encounter [facility] Main [place] [address] [place] [phone] Katina Haile MD [address] [place] [phone] 06/08/2025 2:00 PM EDT - 06/08/2025 3:[address] [facility] Main OR [address] [place] [phone] Katina Haile MD [address] [place] [phone] EXAMINATION UNDER ANESTHESIA; HEMORRHOIDECTOMY; HEMORRHOID BANDING [40473 (CPT ) +2 more] 06/22/2025 7:[address] [facility] CT Scan [address] [place] [phone] 06/27/2025 10:00 AM EST Office Visit General Surgery [facility] 175 [facility] [address] [place] [phone] Katina Haile MD [address] [place] [phone] 09/27/2025 8:00 AM EST Office Visit Adult Medicine [address] [phone] Naseem Huddleston PA [address] [place] [phone] Scheduled Procedures Name Priority Associated Diagnoses Date/Ti [...] be instructed in and provided with HEP. Autogenerated Goal Care Plan Autogenerated Problem No Katina Haile MD Procedures Procedure Name Priority Date/Time Associated Diagnosis Comments ECG 12-LEAD Routine 06/01/2025 10:23 AM EDT BRBPR (bright red blood per rectum) Internal hemorrhoids with complication Anal fissure CBC WITH AUTO DIFFERENTIAL Routine 04/04/2025 11:15 AM EDT Coronary artery disease due to lipid rich plaque Chronic obstructive pulmonary disease with acute exacerbation (CMS/HCC V24, CMS/HCC V28) Hyperlipidemia, unspecified hyperlipidemia type Anxiety Lumbar radiculitis Primary hypertension Severe obesity (BMI 35.0-39.9) with comorbidity (CMS/HCC V24, CMS/HCC V28) PVD (peripheral vascular disease) (CMS/HCC V24) Gastroesophageal reflux disease without esophagitis LIPID PANEL WITH REFLEX TO DIRECT LDL Routine 04/04/2025 11:15 AM EDT Coronary artery disease due to lipid rich plaque Chronic obstructive pulmonary disease with acute exacerbation (CMS/HCC V24, CMS/HCC V28) Hyperlipidemia, unspecified hyperlipidemia type Anxiety Lumbar radiculitis Primary hypertension Severe obesity (BMI 35.0-39.9) with comorbidity (CMS/HCC V24, CMS/HCC V28) PVD (peripheral vascular disease) ([facility] V24) Gastroesophageal reflux disease without esophagitis HEMOGLOBIN A1C Routine 04/04/2025 11:15 AM EDT Coronary artery disease due to lipid rich plaque Chronic obstructive pulmonary disease with acute exacerbation (CMS/HCC V24, CMS/HCC V28) Hyperlipidemia, unspecified hyperlipidemia type Anxiety Lumbar radiculitis Primary hypertension Severe obesity (BMI 35.0-39.9) with comorbidity (CMS/HCC V24, CMS/HCC V28) PVD (peripheral vascular disease) ([facility] V24) Gastroesophageal reflux disease without esophagitis COMPREHENSIVE [...] V24, CMS/HCC V28) PVD (peripheral vascular disease) ([facility]/HCC V24) Gastroesophageal reflux disease without esophagitis COLONOSCOPY Routine 03/02/2025 8:09 AM EDT BRBPR (bright red blood per rectum) Tubular adenoma of colon DEPRESSION SCREENING Routine 05/24/2024 CT LUNG SCREENING LOW DOSE Routine 05/02/2024 10:26 AM EDT Encounter for screening for malignant neoplasm of respiratory organs HEPATITIS C SCREENING Routine 05/24/2019 from Last 3 Months or Most Recently Relevant to Health Maintenance Results * ECG 12 lead (06/01/2025 10:23 AM EDT) Ventricular Rate ECG 69 BPM GEMUSE Atrial Rate 69 BPM GEMUSE P-R Interval 154 ms GEMUSE QRS Duration 100 ms GEMUSE Q-T Interval 406 ms GEMUSE QTc 435 ms GEMUSE R [place] -61 degrees GEMUSE T [place] -114 degrees GEMUSE ECG Interpretation Sinus rhythm with occasional Premature ventricular complexes and Premature atrial complexes Left axis deviation Inferior infarct , age undetermined Abnormal ECG No previous ECGs available Confirmed by Rosa GAONA YUFENG ([id number]) on 06/01/2025 12:46:36 PM GEMUSE 06/01/2025 10:2 3 AM EDT 06/01/2025 12:46 PM EDT Katina Haile MD ECG ORDERABLES Final R esult Performing Organization Address [facility] Co de Phone Number GEMUSE * Prostate specific antigen screen (04/04/2025 11:15 AM EDT) PSA 2.64 0.00 - 4.00 ng/mL LAB CHEMISTRY METHOD 04/04/2025 4:56 PM EDT [facility] Blood Venous blood specimen / Unknown Venipuncture / Unknown 04/04/2025 11:15 AM EDT 04/04/2025 11:15 AM EDT Narrative [facility] - 04/04/2025 4:56 PM EDT The Siemens Advia Centaur Chemiluminescent Immunoassay is used. Results obtained with different assay methods or kits cannot be used interchangeably. Results cannot be interpreted as absolute evidence of the presence or absence of malignant disease. us Naseem [facility]AN [facility]TIST[facility] LAB BLOOD ORDERABLES Linda l Result Performing Organization Address City/[facility]/ZIP Co de Phone Number [facility] [address] [place] [address], * Thyroid stimulating hormone with reflex to free t4 and free t3 (04/04/2025 11:15 AM EDT) TSH 0.91 0.40 - 4.00 mcIU/mL LAB CHEMISTRY METHOD 04/04/2025 5:50 PM EDT [facility] Blood Venous blood specimen / Unknown Venipuncture / Unknown 04/04/2025 11:15 AM EDT 04/04/2025 11:15 AM EDT us Naseem [facility] LAB BLOOD ORDERABLES Linda l Result [facility] [address] [place] [address], * Lipid panel with reflex to direct LDL (04/04/2025 11:15 AM EDT) Cholesterol 87 0 - 200 mg/dL LAB CHEMISTRY METHOD 04/04/2025 4:11 PM EDT [facility] Triglycerides 101 0 - 150 mg/dL LAB CHEMISTRY METHOD 04/04/2025 4:11 PM EDT [facility] HDL 41 >=40 mg/dL LAB CHEMISTRY METHOD 04/04/2025 4:11 PM EDT [facility] LDL Calculated 26 0 - 100 mg/dL LAB CHEMISTRY METHOD 04/04/2025 4:11 PM EDT [facility] Comment:Estimated LDL Calcul ated using equation: Total cholesterol - HDL cholesterol - (Triglycerides/5) VLDL Cholesterol Shaun 20.2 mg/dL LAB CHEMISTRY METHOD 04/04/2025 4:11 PM EDT [facility] Non HDL Chol. (LDL+VLDL) 46 <145 mg/dL LAB CHEMISTRY METHOD 04/04/2025 4:11 PM T [facility] Chol/HDL Ratio 2.1 0.0 - 4.4 LAB CHEMISTRY METHOD 04/04/2025 4:11 PM [facility] Blood Venous blood specimen / Unknown Venipuncture / Unknown 04/04/2025 11:15 AM EDT 04/04/2025 11:15 AM EDT Naseem [facility] LAB BLOOD ORDERABLES Linda bain Result [facility] [address] [place] [address], * (ABNORMAL) CBC auto differential (04/04/2025 11:15 AM EDT) WBC 11.3(H) 4.8 - 10.8 K/mcL LAB HEMETOLOGY METHOD 04/04/2025 12:15 PM EDT [facility] RBC 4.50 4.50 - 5.50 M/mcL LAB HEMETOLOGY METHOD 04/04/2025 12:15 PM EDT [facility] Hemoglobin 14.7 13.5 - 17.5 g/dL LAB HEMETOLOGY METHOD 04/04/2025 12:15 PM EDT [facility] Hematocrit 43.5 42.0 - 54.0 % LAB HEMETOLOGY METHOD 04/04/2025 12:15 PM EDT [facility] MCV 96.2 79.0 - 98.0 FL LAB HEMETOLOGY METHOD 04/04/2025 12:15 PM EDT [facility] MCH 32.5(H) 27.0 - 32.0 pcg LAB HEMETOLOGY METHOD 04/04/2025 12:15 PM EDT [facility] MCHC 33.8 32.0 - 37.0 g/dL LAB HEMETOLOGY METHOD 04/04/2025 12:15 PM EDT [facility] RDW 12.2 11.0 - 15.0 % LAB HEMETOLOGY METHOD 04/04/2025 12:15 PM EDT [facility] Platelets 214 130 - 400 K/mcL LAB HEMETOLOGY METHOD 04/04/2025 12:15 PM EDT [facility] MPV 13.1(H) 7.0 - 11.0 FL LAB HEMETOLOGY METHOD 04/04[facility]2025 [facility] NRBC 0.0 <1.0 % LAB HEMETOLOGY METHOD 04/04/2025 12:[facility] NRBC Absolute 0.00 <0.10 K/mcL LAB HEMETOLOGY METHOD 04/04/2025 12:15 PM [facility] Neutrophils Relative 64.5 % LAB HEMETOLOGY METHOD 04/04/2025 12:15 PM [facility] Lymphocytes Relative 23.2 % LAB HEMETOLOGY METHOD 04/04/2025 12:15 PM [facility] Monocytes Relative 8.8 % LAB HEMETOLOGY METHOD 04/04/2025 12:15 PM [facility] Eosinophils Relative 2.2 % LAB HEMETOLOGY METHOD 04/04/2025 12:15 PM [facility] Basophils Relative 0.8 % LAB HEMETOLOGY METHOD 04/04/2025 12:15 PM [facility] Immature Granulocytes Relative 0.5 % LAB HEMETOLOGY METHOD 04/04/2025 12:15 PM [facility] Neutrophils Absolute 7.26(H) 1.50 - 7.00 K/mcL LAB HEMETOLOGY METHOD 04/04/2025 12:15 PM [facility] Lymphocytes Absolute 2.62 1.00 - 5.00 K/mcL LAB HEMETOLOGY METHOD 04/04/2025 12:15 PM [facility] Monocytes Absolute 0.99 0.20 - 1.00 K/mcL LAB HEMETOLOGY METHOD 04/04/2025 12:15 PM [facility] Eosinophils Absolute 0.25 0.00 - 0.50 K/mcL LAB HEMETOLOGY METHOD 04/04/2025 12:15 PM [facility] Basophils Absolute 0.09 0.00 - 0.20 K/mcL LAB HEMETOLOGY METHOD 04/04/2025 12:15 PM EDT [facility] Immature Granulocytes Absolute 0.06(H) 0.00 - 0.03 K/[facility] LAB HEMETOLOGY METHOD 04/04/2025 12:15 PM EDT [facility] Blood Venous blood specimen / Unknown Venipuncture / Unknown 04/04/2025 11:15 AM EDT 04/04/2025 11:15 AM EDT [facility] Marquita Huddleston [place] LAB BLOOD ORDERABLES Linda l Result Performing Organization Address City/[facility]/ZIP Co de Phone Number [facility] [address] [place] [address], [place] [phone] * Hemoglobin A1c (04/04/2025 11:15 AM EDT) Pathologist [facility] Hemoglobin A1C 6.1 <6.5 % LAB CHEMISTRY METHOD 04/04/2025 6:21 PM EDT [facility] Mean Bld Glu Estim. 128 mg/dL LAB CHEMISTRY METHOD 04/04/2025 6:21 PM EDT [facility] Blood Venous blood specimen / Unknown Venipuncture / Unknown 04/04/2025 11:15 AM EDT 04/04/2025 11:15 AM EDT [facility] Marquita Huddleston [place] LAB BLOOD ORDERABLES Linda l Result [facility] [address] [place] [address], [place] [phone] * (ABNORMAL) Comprehensive metabolic panel (04/04/2025 11:15 AM EDT) Sodium 138 133 - 145 mmol/L LAB CHEMISTRY METHOD 04/04/2025 4:14 PM EDT [facility] Potassium 4.1 3.5 - 5.5 mmol/L LAB CHEMISTRY METHOD 04/04/2025 4:14 PM [facility] Chloride 105 96 - 110 mmol/L LAB CHEMISTRY METHOD 04/04/2025 4:14 PM [facility] CO2 26 21 - 32 mmol/L LAB CHEMISTRY METHOD 04/04/2025 4:14 PM [facility] Anion Gap 7 3 - 11 LAB CHEMISTRY METHOD 04/04/2025 4:14 PM [facility] Glucose 117(H) 70 - 100 mg/dL LAB CHEMISTRY METHOD 04/04/2025 4:14 PM [facility] BUN 12 5 - 25 mg/dL LAB CHEMISTRY METHOD 04/04/2025 4:14 PM [facility] Creatinine 0.96 0.70 - 1.30 mg/dL LAB CHEMISTRY METHOD 04/04/2025 4:14 PM [facility] eGFR 89 >=60 mL/min/1. 73m2 LAB CHEMISTRY METHOD 04/04/2025 4:14 PM [facility] Comment:Calculation based on the Chronic Kidney Disease Epidemiology Collaboration (CKD-EPI) equation refit without adjustment for race. BUN/Creatinine Ratio 12.5 LAB CHEMISTRY METHOD 04/04/2025 4:14 PM [facility] Calcium 8.9 8.5 - 10.5 mg/dL LAB CHEMISTRY METHOD 04/04/2025 4:14 PM [facility] AST (SGOT) 28 10 - 42 unit/L LAB CHEMISTRY METHOD 04/04/2025 4:14 PM [facility] ALT (SGPT) 42 10 - 60 unit/L LAB CHEMISTRY METHOD 04/04/2025 4:14 PM [facility] Alkaline Phosphatase 97 42 - 121 unit/L LAB CHEMISTRY METHOD 04/04/2025 4:14 PM [facility] Total Protein 6.9 6.0 - 8.0 g/dL LAB CHEMISTRY METHOD 04/04/2025 4:14 PM EDT [facility] Albumin 3.6 3.2 - 5.0 g/dL LAB CHEMISTRY METHOD 04/04/2025 4:14 PM EDT [facility] Total Bilirubin 0.8 0.0 - 1.4 mg/dL LAB CHEMISTRY METHOD 04/04/2025 4:14 PM EDT [facility] Blood Venous blood specimen / Unknown Venipuncture / Unknown 04/04/2025 11:15 AM EDT 04/04/2025 11:15 AM EDT Naseem [facility] B[facility]TISTE LAB BLOOD ORDERABLES Linda bain Result [facility] [address] [place] [address], * COLONOSCOPY Anesthesia - MAC; [facility] ENDOSCOPY (03/02/2025 8:09 AM EDT) Anatomical Region [...] for surveillance. Narrative 03/02/2025 8:[address] [facility] Patient Name: Nash Aquino Procedure Date: [...] verified by the physician, the nurse, the dross puller and the training technician in the pre-procedure area in the [...] without abnormality. Procedure Code(s): --- Professional --- 81643, Colonoscopy, flexible; with removal of tumor(s), polyp(s), or other lesion(s) by snare technique Diagnosis Code(s): --- Professional --- D12.5, Benign neoplasm of sigmoid colon D12.3, Benign neoplasm of transverse colon (hepatic flexure or splenic flexure) CPT copyright 2020 [employer]. All rights reserved. The codes documented in this report are preliminary and upon health care law specialist review may be revised to meet current compliance requirements. Arabella Erickson MD 03/02/2025 8:14:06 AM This report has been signed electronically.Arabella Erickson MD Number of Addenda: 0 Note Initiated On: 03/02/2025 7:55 AM Scope Withdrawal Time: 0 hours 9 minutes 29 seconds Scope In: 8:01:14 AM Scope Out: 8:11:49 AM Endoscopy Department at [facility] - [address] [place] [phone] Procedure Note Arabella Erickson MD - 03/02/2025 [facility] Patient Name: Nash Aquino Procedure Date: [...] the physician, the nurse, theanesthetist and the training technician in the pre-procedure area in the [...] without abnormality. Procedure Code(s): --- Professional --- 95368, Colonoscopy, flexible; with removal of tumor(s), polyp(s), or other lesion(s) by snare technique Diagnosis Code(s): --- Professional --- D12.5, Benign neoplasm of sigmoid colon D12.3, Benign neoplasm of transverse colon (hepatic flexure or splenic flexure) CPT copyright 2020 [employer]. All rights reserved. The codes documented in this report are preliminary and upon health care law specialist reviewmay be revised to meet current compliance requirements. Arabella Erickosn MD 03/02/2025 8:14:06 AM This report has been signed electronically.Arabella Erickson MD Number of Addenda: 0 Note Initiated On: 03/02/2025 7:55 AM Scope Withdrawal Time: 0 hours 9 minutes 29 seconds Scope In: 8:01:14 AM Scope Out: 8:11:49 AM Endoscopy Department at [facility] - [address] [place] [phone] IMPRESSION: - Two 2 to 9 mm polyps in the sigmoid colon and in the transverse colon, removed with a cold snare.Resected and retrieved. - Diverticulosis in the sigmoid colon. - Internal hemorrhoids. - The examination was otherwise normal. Recommendation: - Discharge patient to home. - Await pathology results. - Repeat colonoscopy in 5 years for surveillance. Arabella Erickson MD GI~PROCEDURE ORDERABLES Fin al Result * Depression Screening (05/24/2024) Depression Screening abstracted Historical Provider HEALTH MAINTENANCE Final Result * CT LUNG SCREENING LOW DOSE (05/02/2024 10:26 AM EDT) Anatomical Region Laterality Modality Computed Tomogra phy 05/02/2024 7:28 AM EDT Narrative 05/02/2024 10:26 AM EDT [facility] Diagnostic Imaging Department [address] [place] [address] [id number] Patient: NASH AQUINO Terence /Age/Sex: 1960 - 64 - M Unit#: [id number] Location/Status: SPDICATLS/REG CLI Mnemonic/Ordering Site: [facility] Ordering Physician: GIGI LAWSON MD CT [...] Sign date/Time: 05/02/24 1026 Procedure Note Michelle Pete MD - 06/08/2024 [facility] Diagnostic Imaging Department [address] [place], [place] [phone] Patient: NASH AQUINO /Age/Sex: 1960 - 64 - M Unit#: [id number] Location/Status: SPDICATLS/REG CLI Mnemonic/Ordering Site: [facility] Ordering Physician: GIGI LAWSON MD CT [...] MD IMG CT PROCEDURES Final Result * Hepatitis C Screening (05/24/2019) Hepatitis C Screening abstracted Historical Provider HEALTH MAINTENANCE Final Result from Last 3 Months or Most Recently Relevant to Health Maintenance Additional Health Concerns Active Problems Noted Date Diagnosed Date Autogenerated Problem 05/22/2025 Insurance [facility] [employer] Care Teams Tape Rules Printing Machine Operator Relationship Specialty Start Date End Date Naseem Huddleston PA [address] [place] [address] PCP - General Internal Medicine 11/26/20
--- OUTSIDE RECORDS SUMMARY | 2025-06-04 14:54 | XMS_ITS | Encounter Summary ---
Author Organization [facility] Address [address] [place] [address] Care Team Providers Care Hvac R Tech Name Role Phone Naseem Huddleston Primary Care Provider [phone] Reason for Visit * Reason Onset Date Comments Diarrhea 10/04/2024 Encounter Details Date Type Department Care Team (Late st Contact Info) Description 10/04/2024 Nurse Triage Adult Medicine [address] [phone] Naseem Huddleston PA [address] [place] [phone] Social History Tobacco Use Types Packs/Day Years Used Date Smoking Tobacco: Every Day Cigarettes 1 51.2 Started: 04/07/1974 Smokeless Tobacco: Never Alcohol Use [...] is accepting pt.'s . Pt. Agrees * MAREKL Floers - 10/06/2024 9:19 AM EST We could [...] Who is patients PCP?: MARKEL Fonseca Payor: [facility] PLAN / Plan: [employer] / Product Type: *No Product type* / documented in this encounter Plan of Treatment Upcoming Encounters Date Type Department Care Team (Latest Contact Info) Description 06/08/2025 2:00 PM EDT Hospital Encounter [facility] OR [address] [place] [phone] Katina Haile MD [address] [place] [phone] 06/08/2025 2:00 PM EDT - 06/08/2025 3:30 PM EDT Surgery [facility] OR [address] [place] [phone] Katina Haile MD [address] [place] [phone] EXAMINATION UNDER ANESTHESIA; HEMORRHOIDECTOMY; HEMORRHOID BANDING [89417 (CPT ) +2 more] 06/22/2025 7:45 AM EDT Appointment [facility] CT Scan [address] [place] [phone] 06/27/2025 10:00 AM EST Office Visit General Surgery [facility] [address] [phone] Katina Haile MD [address] [place] [phone] 09/27/2025 8:00 AM EST Office Visit Adult [address] [phone] Naseem Huddleston PA [address] [place] [phone] Scheduled Procedures Name Priority Associated Diagnoses Date/Ti [...] on filedocumented in this encounter Care Teams Hvac R Tech Relationship Specialty Start Date End Date Naseem Huddleston PA [address] [place] [phone] PCP - General Internal Medicine 11/26/20 documented as of this encounter
--- OUTSIDE RECORDS SUMMARY | 2025-06-04 14:54 | XMS_ITS | Encounter Summary ---
Author Organization [facility] Address [address] [place] [address] Care Team Providers Care Correction Officer Penitentiary Name Role Phone Naseem Huddleston Primary Care Provider [phone] Reason for Visit * Reason Onset Date Comments Prior Authorization 05/25/2025 06/08/25 Dr. Katina Haile Encounter Details Date Type Department Care Team ([facility] st Contact Info) Description 05/25/2025 Telephone General Surgery - [address] [place] [address] Katina Haile MD [address] [place] [address] [phone] Social History Tobacco Use Types Packs/Day Years [...] care for your loved ones. For example, childcare center administrator or elderly care for an older adult? [...] as of this encounter Progress Notes * Roxie Cerda - 06/02/2025 12:44 PM EDT I received an notification that no authorization is required. * Roxie Cerda - 05/25/2025 2:55 PM EDT He is having surgery with Dr. Katina Haile on 06/08/25 at [facility]. He has [employer] for insurance. I went online and it is pending for CPT codes 58992, 71491, 49819. documented in this encounter Plan of Treatment Upcoming Encounters Date Type Department Care Team (Latest Contact Info) Description 06/08/2025 2:00 PM EDT Hospital Encounter [facility] Main OR [address] [place] [phone] Katina Haile MD [address] [place] [phone] 06/08/2025 2:00 PM EDT - 06/08/2025 3:30 PM EDT Surgery [facility] OR [address] [place] [phone] Katina Haile MD [address] [place] [phone] EXAMINATION UNDER ANESTHESIA; HEMORRHOIDECTOMY; HEMORRHOID BANDING [29169 (CPT ) +2 more] 06/22/2025 7:45 AM EDT Appointment [facility] CT Scan [address] [place] [phone] 06/27/2025 10:00 AM EST Office Visit General Surgery [facility] [address] [facility] [address] [place] [phone] Katina Haile MD [address] [place] [phone] 09/27/2025 8:00 AM EST Office Visit Adult [address] [phone] Naseem Huddleston PA [address] [place] [phone] Scheduled Procedures Name Priority Associated Diagnoses Date/Ti [...] Plan Autogenerated Problem No Katina Haile MD documented as of this encounter Visit Diagnoses Not on filedocumented in this encounter Additional Health Concerns Active Problems Noted Date Diagnosed Date Autogenerated Problem 05/22/2025 Assessment Noted Time PHQ-9 Depression Total Score: 0 03/27/20 25 7:47 AM EDT documented as of this encounter Care Teams Correction Officer Penitentiary Relationship Specialty Start Date End Date Naseem Huddleston PA [address] [place] [address] PCP - General Internal Medicine 11/26/20 documented as of this encounter
--- OUTSIDE RECORDS SUMMARY | 2025-06-04 14:55 | XMS_ITS | Encounter Summary ---
Author Organization [facility] Address [address] [place] [address] Care Team Providers Care Nurse Intern Name Role Phone Naseem Huddleston Primary Care Provider [phone] Reason for Visit * Reason Onset Date Comments Shoulder Pain 07/25/2024 Left Shoulder Encounter Details Date Type Department Care Team (Late st Contact Info) Description 07/25/2024 Nurse Triage Adult Medicine [address] [phone] Naseem Huddleston PA [address] [place] [phone] Social History Tobacco Use Types Packs/Day Years [...] inside arm sometimes appt for today * Chte Rollins - 07/25/2024 9:14 AM EST Patient [...] traveled recently to another state outside of [place], [place], [place], [place], [place], [place], [place]? no [...] yes, gather 3rd libertarian insurance information Third Green Party Information: not applicable PCP: MARKEL Fonseca Payor: / No coverage found. documented in this encounter Plan of Treatment Upcoming Encounters Date Type Department Care Team (Latest Contact Info) Description 06/08/2025 2:00 PM EDT Hospital Encounter [facility] Main OR [address] [place] [phone] Katina Haile MD [address] [place] [phone] 06/08/2025 2:00 PM EDT - 06/08/2025 3:30 PM EDT Surgery [facility] Main OR [address] [place] [phone] Katina Haile MD [address] [place] [phone] EXAMINATION UNDER ANESTHESIA; HEMORRHOIDECTOMY; HEMORRHOID BANDING [77516 (CPT ) +2 more] 06/22/2025 7:45 AM EDT Appointment [facility] CT Scan [address] [place] [phone] 06/27/2025 10:00 AM EST Office Visit General Surgery [facility] [address] [phone] Katina Haile MD [address] [place] [phone] 09/27/2025 8:00 AM EST Office Visit [place] [address] [place] [phone] Naseem Huddleston PA [address] [place] [phone] Scheduled Procedures Name Priority Associated Diagnoses Date/Ti me EXAMINATION UNDER ANESTHESIA BRBPR (bright red blood per rectum) Internal hemorrhoids with complication 06/08/2025 2:00 PM EDT documented as of this encounter Visit Diagnoses Not on filedocumented in this encounter Care Teams Nurse Intern Relationship Specialty Start Date End Date Naseem Huddleston PA [address] [place] [id number] PCP - General Internal Medicine 11/26/20 documented as of this encounter
== END 2025-06-04 14:52 | disposition home or self-care (01) ==
LOC: HO.MRI 14:51
PROVIDERS: Visit Provider Physical Medicine & Rehabilitation
DX: M75.52 Bursitis of left shoulder (principal); M77.8 Other enthesopathies, not elsewhere classified; M54.16 Radiculopathy, lumbar region
CPT/HCPCS: 72148; 73221